=== PATIENT | female | born 1955 | race Two or more races ===

== ENCOUNTER 2018-09-17 10:17 | Emergency (ER) | payer MEDICAID ==
[~2018-09-17] VITALS: Ht 152.4 cm; Wt 78.2 kg
[~2018-09-17 10:17] MED LIST: ALBU6.7H INH; AMIT-106 PO; BUPR150T13 PO; CYCL-1 PO; ENOX100S3 SQ; FLUC200T PO; GABA-532 PO; HYDR-4353 PO; HYDR-4383 PO; LORA0.5T PO; MAGN400C PO; METH4TAB3 PO; ONDA4TAB6 PO; PANT-47 PO; POLY119P2 PO; PROC10TA10 PO; SIME80TA16 PO; SUCR1ORA12 PO
[2018-09-17 11:33] LABS: BASOPHILS % (AUTO) 0.4 % (0-1); EOSINOPHILS # (AUTO) 0.1 X10'3 (0-0.9); EOSINOPHILS % (AUTO) 1.1 % (0-6); HEMATOCRIT 38.9 % (35.0-45.0); HEMOGLOBIN 13.1 g/dl (12.0-16.0); LYMPHOCYTES # (AUTO) 1.8 X10'3 (1.1-4.8); LYMPHOCYTES % (AUTO) 24.9 % (21-51); MEAN CORPUSCULAR HEMOGLOBIN 30.2 PG (27.0-31.0); MEAN CORPUSCULAR HGB CONC 33.7 g/dL (33.0-36.5); MEAN CORPUSCULAR VOLUME 89.8 FL (78-98); MEAN PLATELET VOLUME 8.7 FL (7.4-10.4); MONOCYTES # (AUTO) 0.5 X10'3 (0-0.9); MONOCYTES % (AUTO) 6.5 % (2-12); NEUTROPHILS # (AUTO) 4.9 X10'3 (1.8-7.7); NEUTROPHILS % (AUTO) 67.1 % (42-75); PLATELET COUNT 295 X10'3 (140-440); RED BLOOD COUNT 4.33 X10'6 (4.20-5.60); RED CELL DISTRIBUTION WIDTH 14.3 % (11.5-14.5); WHITE BLOOD COUNT 7.3 X10'3 (4.5-11.0)
[2018-09-17 11:43] LABS: PARTIAL THROMBOPLASTIN TIME 29 SECONDS (22-32)
[2018-09-17 11:56] LABS: ALANINE AMINOTRANSFERASE 22 U/L (12-78); ALBUMIN 3.6 G/DL (3.4-5.0); ALBUMIN/GLOBULIN RATIO 0.9 (1.1-1.5); ALKALINE PHOSPHATASE 134 IU/L (46-116); ANION GAP 5 (8-16); ASPARTATE AMINO TRANSFERASE 13 U/L (10-37); BILIRUBIN,TOTAL 0.3 MG/DL (0.1-1.0); BLOOD UREA NITROGEN 19 MG/DL (7-18); BUN/CREATININE RATIO 21.3 (6.6-38.0); CALCIUM 8.8 MG/DL (8.5-10.1); CHLORIDE 106 MMOL/L (99-107); CREATININE 0.89 MG/DL (0.40-0.90); GLUCOSE 116 MG/DL (70-104); POTASSIUM 4.2 MMOL/L (3.5-5.1); SODIUM 141 MMOL/L (135-145); TOTAL PROTEIN 7.5 G/DL (6.4-8.2); eGFR 64 ML/MIN
[2018-09-17] MEDS ORDERED: GUAI118S13 PO (12:20)
[2018-09-17 13:14] VITALS: BP 135/72
== END 2018-09-17 13:20 | disposition home or self-care (01) ==
LOC: ER 10:18
DX: R05 Cough (principal); R06.02 Shortness of breath; J45.909 Unspecified asthma, uncomplicated; K21.9 Gastro-esophageal reflux disease without esophagitis; E11.9 Type 2 diabetes mellitus without complications; M19.90 Unspecified osteoarthritis, unspecified site; G89.29 Other chronic pain; Z86.718 Personal history of other venous thrombosis and embolism; Z98.890 Other specified postprocedural states; Z79.899 Other long term (current) drug therapy
CPT/HCPCS: 36415; 71045; 80053; 83880; 84484; 85025; 85610; 85730; 93005; 99284

== ENCOUNTER 2021-01-16 12:27 | Inpatient (IN) | payer MEDICAID ==
[~2021-01-16] VITALS: Ht 180.3 cm; Wt 79.0 kg
[~2021-01-16 12:27] MED LIST changes: -ALBU6.7H INH; +ALBU6.7H9 INH; -AMIT-106 PO; +AMIT25TA9 PO
[2021-01-16] MEDS ORDERED: azithromycin/NS 500mg/250ml 250 ML IV ONE (12:55)
[2021-01-16] MEDS ORDERED: CefTRIAXone 2gm/D5W 50ml BAG 50 ML IV ONE (12:55)
[2021-01-16] MEDS ORDERED: normal saline 1000ML IV soln IV ONE (12:55)
[2021-01-16 13:04] LABS: BASOPHILS % (AUTO) 0.1 % (0-1); EOSINOPHILS % (AUTO) 0 % (0-6); HEMATOCRIT 35.4 % (35.0-45.0); HEMOGLOBIN 12.1 g/dl (12.0-16.0); LYMPHOCYTES # (AUTO) 0.6 X10'3 (1.1-4.8); LYMPHOCYTES % (AUTO) 7.5 % (21-51); MEAN CORPUSCULAR HGB CONC 34.1 g/dL (33.0-36.5); MEAN CORPUSCULAR VOLUME 91.1 FL (78-98); MEAN PLATELET VOLUME 8.1 FL (7.4-10.4); MONOCYTES # (AUTO) 0.2 X10'3 (0-0.9); MONOCYTES % (AUTO) 3.2 % (2-12); NEUTROPHILS # (AUTO) 6.9 X10'3 (1.8-7.7); NEUTROPHILS % (AUTO) 89.2 % (42-75); PLATELET COUNT 283 X10'3 (140-440); RED BLOOD COUNT 3.89 X10'6 (4.20-5.60); RED CELL DISTRIBUTION WIDTH 13.7 % (11.5-14.5); WHITE BLOOD COUNT 7.7 X10'3 (4.5-11.0)
[2021-01-16 13:17] LABS: D-DIMER 1.38 MG/L FEU (0-0.50)
[2021-01-16 13:24] LABS: ALANINE AMINOTRANSFERASE 31 U/L (12-78); ALBUMIN/GLOBULIN RATIO 0.7 (1.1-1.5); ALKALINE PHOSPHATASE 137 IU/L (46-116); ANION GAP 12 (8-16); ASPARTATE AMINO TRANSFERASE 46 U/L (10-37); BILIRUBIN,TOTAL 0.4 MG/DL (0.1-1.0); BLOOD UREA NITROGEN 13 MG/DL (7-18); BUN/CREATININE RATIO 14.8 (6.6-38.0); CALCIUM 8.4 MG/DL (8.5-10.1); CHLORIDE 100 MMOL/L (99-107); CREATININE 0.88 MG/DL (0.40-0.90); GLUCOSE 227 MG/DL (70-104); SODIUM 138 MMOL/L (135-145); TOTAL CARBON DIOXIDE 25.8 MMOL/L (24-32); TOTAL PROTEIN 7.5 G/DL (6.4-8.2); eGFR 64 ML/MIN
[2021-01-16] MEDS ORDERED: dexamethasone inj 8 MG in normal saline 50ml IV soln 50 ML IV ONE (13:30)
--- NOTE | 2021-01-16 13:40 | NUR ---
pt has been on 6liters nasal cannula since arrival to er, no beds available, pt is covid positive, was tested at clinic today, 89 to 90% on 6 liters, pt is in wheelchair in [place]
[2021-01-16] MEDS ORDERED: iohexol 350MG/ML 100ml bottle IV ONE (13:42)
--- NOTE | 2021-01-16 13:43 | NUR ---
charge nurse is aware, bed to become available soon
--- NOTE | 2021-01-16 13:55 | NUR ---
1st liter ns infusing w/o
--- NOTE | 2021-01-16 14:15 | NUR ---
PT C/O SOB, 79% ON 6LITERS NASAL CANNULA, Ruddy HENDERSON AWARE, PT PLACED ON NRB, PULSE OX INCREASED TO 98% AND PT SAID SHE FELT BETTER, PT TAKEN TO CT ON MONITOR WITH RN, PT WAS ABLE TO TRANSFER SELF WITH MIN ASSIST FROM WHEELCHAIR TO CT BED
--- NOTE | 2021-01-16 14:35 | NUR ---
PT TO ROOM 1, REPORT TO CASIE AGARWAL
[2021-01-16] MEDS ORDERED: REMDESIVIR INJ 200 MG in normal saline 100ml IV soln 60 ML IV ONE (15:00)
[2021-01-16 15:27] LABS: ABG HCO3 21.4 mmol/L (22.0-26.0); ABG OXYGEN SATURATION 98.3 % (94-97); ABG PCO2 (T) 32.1 mmHg (32.0-45.0); ABG PO2 (T) 145.5 mmHg (75.0-100.0); ALLEN'S TEST POSITIVE; FCOHb 0.7 % (0.0-3.9); FLOW 15 L/min; FMetHb 0.3 % (0.0-1.5); FO2Hb 97.3 % (94-97); PATIENT TEMPERATURE 36.8; TOTAL HEMOGLOBIN 12.4 G/dl (12.0-16.0)
[2021-01-16] MEDS: normal saline 1000ml 1,000 ML IV SCH (15:35)
[2021-01-16] MEDS ORDERED: mag hydrox/Alum hydrox/simeth 30ml oral suspension PO PRN (15:35)
[2021-01-16] MEDS ORDERED: magnesium hydroxide 30ml (MOM) UD suspension PO PRN (15:35)
[2021-01-16] MEDS ORDERED: ondansetron/PF 4mg/2ml inj IV PRN (15:35)
[2021-01-16] MEDS: ALBUTEROL INHALER 1 PUFF/90 MCG INHALER IH PRN (15:36)
[2021-01-16] MEDS ORDERED: BUSP10TA10 PO (15:54)
[2021-01-16] MEDS ORDERED: METF-438 PO (15:54)
[2021-01-16] MEDS ORDERED: GLIM2TAB6 PO (15:54)
[2021-01-16] MEDS ORDERED: BUPR300T53 PO (15:54)
[2021-01-16] MEDS ORDERED: AMIT25TA10 PO (15:54)
[2021-01-16] MEDS ORDERED: ALEN70TA80 PO (15:54)
[2021-01-16] MEDS ORDERED: SERT-433 PO (15:54)
[2021-01-16] MEDS ORDERED: GABA300C PO (15:54)
[2021-01-16] MEDS ORDERED: LURA20TA PO (15:54)
[2021-01-16] MEDS ORDERED: ASPI-611 PO (15:54)
[2021-01-16] MEDS ORDERED: CHOL20004 PO (15:54)
[2021-01-16] MEDS ORDERED: CHLO100T16 PO (15:54)
[2021-01-16] MEDS ORDERED: MONT10TA21 PO (15:54)
[2021-01-16] MEDS ORDERED: TRAZ-256 PO (15:54)
[2021-01-16] MEDS ORDERED: non-formulary drug (Alendronate Sodium 1 TAB) PO SCH (16:15)
--- NOTE | 2021-01-16 17:36 | NUR ---
pt o2 sats continue to stay 79-83% on 15+L 4 puffs of albuterol inhaler given, hob raised and o2 canula adjusted, pt stayed in this range for several minutes. pt has anxiety/ impending doom contacted pa on duty for low o2 and anxiety. no orders at this time
[2021-01-16] MEDS ORDERED: ondansetron/PF 4mg/2ml inj IV ONE (18:30)
[2021-01-16] MEDS ORDERED: LORazepam 2 mg/ml vial IV ONE (18:30)
--- NOTE | 2021-01-16 18:42 | NUR ---
RT AT BEDSIDE. PT PUT ON NON-REBREATHER WHEN SPO2 FOUND TO BE 85%
--- NOTE | 2021-01-16 18:46 | NUR ---
RT AT BEDSIDE. PT MEDICATED WITH ZOFRAN AND ATIVAN. PT COUGHED UP PINK TINGED SPUTUM. PT PLACED ON SALTER AND NONREBREATHER AT 15L. PT IS SATTING 90-92%.
[2021-01-16] MEDS: docusate sod 100mg capsule PO SCH (20:00)
[2021-01-16] MEDS: dexamethasone 4mg/ml inj IV SCH (20:57)
[2021-01-16] MEDS: enoxaparin 40mg/0.4ml syringe SUBCUT SCH (20:58)
[2021-01-16] MEDS: busPIRone 5mg tablet PO SCH (20:58)
[2021-01-16] MEDS: chlorproMAZINE 25mg tablet PO SCH (21:00)
[2021-01-16] MEDS: amitriptyline 25mg tablet PO SCH (21:00)
[2021-01-16] MEDS: traZODone 50mg tablet PO SCH (21:07)
[2021-01-17 02:00] VITALS: BP 126/80
[2021-01-17] MEDS: dexamethasone 4mg/ml inj IV SCH ×3 (02:42→13:34)
[2021-01-17 06:00] VITALS: BP 130/66
--- NOTE | 2021-01-17 06:10 | NUR ---
Patient in room ORTHO 4007. I have received report from Rochelle AGARWAL and had the opportunity to ask questions and assume patient care.
[2021-01-17 08:48] LABS: BASOPHILS % (AUTO) 0 % (0-1); EOSINOPHILS % (AUTO) 0 % (0-6); HEMATOCRIT 34.9 % (35.0-45.0); HEMOGLOBIN 11.9 g/dl (12.0-16.0); LYMPHOCYTES # (AUTO) 0.5 X10'3 (1.1-4.8); LYMPHOCYTES % (AUTO) 6.8 % (21-51); MEAN CORPUSCULAR HEMOGLOBIN 31.2 PG (27.0-31.0); MEAN CORPUSCULAR HGB CONC 34.2 g/dL (33.0-36.5); MEAN CORPUSCULAR VOLUME 91.2 FL (78-98); MEAN PLATELET VOLUME 8.4 FL (7.4-10.4); MONOCYTES # (AUTO) 0.4 X10'3 (0-0.9); MONOCYTES % (AUTO) 5.3 % (2-12); NEUTROPHILS # (AUTO) 6.1 X10'3 (1.8-7.7); NEUTROPHILS % (AUTO) 87.9 % (42-75); PLATELET COUNT 297 X10'3 (140-440); RED BLOOD COUNT 3.83 X10'6 (4.20-5.60); RED CELL DISTRIBUTION WIDTH 13.7 % (11.5-14.5)
[2021-01-17] MEDS: REMDESIVIR INJ 100 MG in normal saline 100ml IV soln 80 ML IV SCH (08:49)
[2021-01-17] MEDS: buPROPion SR 150mg tablet PO SCH ×2 (08:50→21:28)
[2021-01-17] MEDS: enoxaparin 40mg/0.4ml syringe SUBCUT SCH (08:50)
[2021-01-17] MEDS: docusate sod 100mg capsule PO SCH ×2 (08:50→20:00)
[2021-01-17] MEDS: cholecalciferol (vitamin D3) 1,000 unit (25mcg) tablet PO SCH (08:50)
[2021-01-17] MEDS: aspirin 81mg, enteric-coated 1 TAB TABLET.DR PO SCH (08:50)
[2021-01-17] MEDS: gabapentin 300mg capsule PO SCH (08:51)
[2021-01-17] MEDS: montelukast 10mg tablet PO SCH (08:51)
[2021-01-17] MEDS: busPIRone 5mg tablet PO SCH ×2 (08:51→21:27)
[2021-01-17] MEDS: lurasidone 20mg tablet PO SCH (08:51)
[2021-01-17] MEDS: sertraline 50mg tablet PO SCH (08:51)
[2021-01-17 09:07] LABS: D-DIMER 2.38 MG/L FEU (0-0.50)
[2021-01-17 09:27] LABS: ALBUMIN 2.6 G/DL (3.4-5.0); ANION GAP 12 (8-16); BLOOD UREA NITROGEN 12 MG/DL (7-18); BUN/CREATININE RATIO 17.1 (6.6-38.0); C-REACTIVE PROTEIN 21.45 MG/DL (0.0-0.5); CALCIUM 7.6 MG/DL (8.5-10.1); CHLORIDE 104 MMOL/L (99-107); GLUCOSE 270 MG/DL (70-104); SODIUM 140 MMOL/L (135-145); TOTAL CARBON DIOXIDE 24.3 MMOL/L (24-32); eGFR 84 ML/MIN
--- NOTE | 2021-01-17 13:57 | NUR ---
PAGER ID: [phone] MESSAGE: Dr. Altamirano I spoke to another son named Rafita, he is with his brother irving and said that its okay to intubate patient Ana Cristina Arndt if need be. Stephanie [phone]
[2021-01-17 14:00] VITALS: BP 114/67
[2021-01-17 15:00] VITALS: BP 136/72
--- NOTE | 2021-01-17 15:32 | NUR ---
Paged Respiratory Ortho Neuro rm [phone] Rabia Arndt Needs Stat ABG. Thank you Brinda AGARWAL [phone]
--- NOTE | 2021-01-17 15:35 | NUR ---
Paged Dr. Altamirano PAGER ID: [phone] MESSAGE: Ortho Neuro rm [phone] Rabia Arndt put in orders for Stat ABG and chest x-ray. On O2 [place] [facility] 100% FIO2 and O2 saturation is 90%. Thank you Brinda AGARWAL [phone]
--- NOTE | 2021-01-17 15:38 | NUR ---
Spoke with Dr. Altamirano regarding he spoke with the ICU Franchise Sales Manager and Dr. Benites will assess patient. Respiratory is here now doing STAT ABG.
[2021-01-17] MEDS: methylPREDNISolone sod succ 125mg/2ml vial IV SCH ×2 (15:47→21:29)
[2021-01-17 15:55] LABS: ABG BASE EXCESS -0.5 mmol/L (-2.0-2.0); ABG HCO3 24.4 mmol/L (22.0-26.0); ABG OXYGEN SATURATION 98.8 % (94-97); ABG PO2 (T) 187.1 mmHg (75.0-100.0); ALLEN'S TEST POSITIVE; FCOHb 0.3 % (0.0-3.9); FLOW 60 L/min; FMetHb 0.1 % (0.0-1.5); FO2Hb 98.4 % (94-97); TOTAL HEMOGLOBIN 12.3 G/dl (12.0-16.0)
--- NOTE | 2021-01-17 16:52 | NUR ---
paged respiratory Ortho Neuro rm [phone] Rabia Arndt will have ABG done daily at 1000. orders put in for the next 9 days Thank you Brinda AGARWAL [phone]
--- NOTE | 2021-01-17 16:55 | NUR ---
Called Resp. [phone], left voice message regarding daily ABGs at 1000 for the patient for the next 9 days.
--- NOTE | 2021-01-17 17:05 | NUR ---
Paged Dr. Altamirano re: PT order to increase mobility PAGER ID: [phone] MESSAGE: Ortho Neuro rm [phone] Rabia Arndt can we have PT eval and treat order? Thank you Brinda AGARWAL [phone]
--- NOTE | 2021-01-17 18:03 | NUR ---
Problems reprioritized. Patient report given, questions answered & plan of care reviewed with Rochelle AGARWAL.
[2021-01-17] MEDS: amitriptyline 25mg tablet PO SCH (21:28)
[2021-01-17] MEDS: chlorproMAZINE 25mg tablet PO SCH (21:28)
[2021-01-17] MEDS: traZODone 50mg tablet PO SCH (21:28)
[2021-01-17] MEDS: enoxaparin 80mg/0.8ml syringe SUBCUT SCH (21:31)
[2021-01-17 22:00] VITALS: BP 163/89
[2021-01-18 02:00] VITALS: BP 116/57
[2021-01-18] MEDS: methylPREDNISolone sod succ 125mg/2ml vial IV SCH ×3 (02:26→16:37)
--- NOTE | 2021-01-18 06:24 | NUR ---
Problems reprioritized. Patient report given, questions answered & plan of care reviewed with Marla AGARWAL .
[2021-01-18 07:51] LABS: BASOPHILS % (AUTO) 0.1 % (0-1); EOSINOPHILS % (AUTO) 0.1 % (0-6); HEMATOCRIT 34.9 % (35.0-45.0); LYMPHOCYTES # (AUTO) 0.4 X10'3 (1.1-4.8); LYMPHOCYTES % (AUTO) 7.3 % (21-51); MEAN CORPUSCULAR HEMOGLOBIN 31.2 PG (27.0-31.0); MEAN CORPUSCULAR HGB CONC 34.4 g/dL (33.0-36.5); MEAN CORPUSCULAR VOLUME 90.6 FL (78-98); MEAN PLATELET VOLUME 8.3 FL (7.4-10.4); MONOCYTES # (AUTO) 0.5 X10'3 (0-0.9); MONOCYTES % (AUTO) 8.9 % (2-12); NEUTROPHILS % (AUTO) 83.6 % (42-75); PLATELET COUNT 360 X10'3 (140-440); RED BLOOD COUNT 3.86 X10'6 (4.20-5.60); RED CELL DISTRIBUTION WIDTH 13.9 % (11.5-14.5)
[2021-01-18] MEDS: enoxaparin 80mg/0.8ml syringe SUBCUT SCH ×2 (08:29→21:07)
[2021-01-18] MEDS: buPROPion SR 150mg tablet PO SCH ×2 (08:30→21:06)
[2021-01-18] MEDS: aspirin 81mg, enteric-coated 1 TAB TABLET.DR PO SCH (08:30)
[2021-01-18] MEDS: sertraline 50mg tablet PO SCH (08:30)
[2021-01-18] MEDS: montelukast 10mg tablet PO SCH (08:30)
[2021-01-18] MEDS: gabapentin 300mg capsule PO SCH (08:31)
[2021-01-18] MEDS: busPIRone 5mg tablet PO SCH ×2 (08:31→21:06)
[2021-01-18] MEDS: cholecalciferol (vitamin D3) 1,000 unit (25mcg) tablet PO SCH (08:31)
[2021-01-18] MEDS: lurasidone 20mg tablet PO SCH (08:31)
[2021-01-18] MEDS: docusate sod 100mg capsule PO SCH ×2 (08:31→21:06)
[2021-01-18] MEDS: REMDESIVIR INJ 100 MG in normal saline 100ml IV soln 80 ML IV SCH (08:32)
[2021-01-18 08:37] LABS: ALBUMIN 2.7 G/DL (3.4-5.0); ANION GAP 12 (8-16); BLOOD UREA NITROGEN 20 MG/DL (7-18); BUN/CREATININE RATIO 25.3 (6.6-38.0); C-REACTIVE PROTEIN 11.45 MG/DL (0.0-0.5); CALCIUM 7.9 MG/DL (8.5-10.1); CHLORIDE 106 MMOL/L (99-107); CREATININE 0.79 MG/DL (0.40-0.90); GLUCOSE 328 MG/DL (70-104); POTASSIUM 4.1 MMOL/L (3.5-5.1); SODIUM 141 MMOL/L (135-145); TOTAL CARBON DIOXIDE 23.2 MMOL/L (24-32); eGFR 73 ML/MIN
[2021-01-18 08:49] LABS: D-DIMER 1.83 MG/L FEU (0-0.50)
[2021-01-18 10:00] VITALS: BP 106/53
--- NOTE | 2021-01-18 11:00 | NUR ---
Patient not eating good. Dr. Andrews notified , nutritional supplement ordered.
[2021-01-18] MEDS ORDERED: dextrose 50%-water 50ml dispensing syringe IV PRN (14:45)
[2021-01-18] MEDS ORDERED: dextrose ORAL solution 15 GM/59 ML bottle PO PRN ×2 (14:45)
[2021-01-18] MEDS ORDERED: glucagon, human recombinant 1mg kit SUBCUT PRN (14:45)
[2021-01-18] MEDS: normal saline 1000ml 1,000 ML IV SCH (14:56)
[2021-01-18 15:23] LABS: HEMOGLOBIN A1C 7.8 % (4.5-6.2)
--- NOTE | 2021-01-18 17:51 | NUR ---
PAGER ID: [phone] MESSAGE: Marla AGARWAL, [phone]: Patient Yris Bender, 4007, blood sugar is 401, A1C is 7.8. I have already initiated hyper/hypo protocol
[2021-01-18 18:00] VITALS: BP 111/69
[2021-01-18] MEDS: insulin Lispro (HumaLOG) vial - multi-dose SQ SCH ×2 (18:15→21:13)
--- NOTE | 2021-01-18 18:52 | NUR ---
Patient in room ORTHO 4007. I have received report from Marla AGARWAL and had the opportunity to ask questions and assume patient care.
[2021-01-18] MEDS: NUT.TX.GLUC.INTOLER,LAC-FR,SOY (GLUCERNA) 237 ML PO SCH (18:56)
[2021-01-18] MEDS: chlorproMAZINE 25mg tablet PO SCH (21:06)
[2021-01-18] MEDS: traZODone 50mg tablet PO SCH (21:06)
[2021-01-18] MEDS: amitriptyline 25mg tablet PO SCH (21:07)
[2021-01-18] MEDS: insulin glargine (Lantus) pen - multi-dose SQ SCH (21:12)
[2021-01-18 22:00] VITALS: BP 108/45
--- NOTE | 2021-01-18 22:00 | NUR ---
Pts blood sugar was 403 at 2100, hypo/hyperglycemic protocol ordered. Pt is level 2 as of now. Corrected her per the protocol with Lantus and Humalog. Will continue to monitor.
[2021-01-19] MEDS: methylPREDNISolone sod succ 125mg/2ml vial IV SCH ×2 (01:11→09:20)
[2021-01-19 02:00] VITALS: BP 106/52
--- NOTE | 2021-01-19 05:50 | NUR ---
Upon pts approval I updated the pts son Lakhwinder on pts status and plan of care. Son will inform the rest of the family.
--- NOTE | 2021-01-19 06:30 | NUR ---
Patient in room ORTHO 4007. I have received report from Diana and had the opportunity to ask questions and assume patient care.
--- NOTE | 2021-01-19 06:31 | NUR ---
Problems reprioritized. Patient report given, questions answered & plan of care reviewed with Marla AGARWAL.
[2021-01-19] MEDS: NUT.TX.GLUC.INTOLER,LAC-FR,SOY (GLUCERNA) 237 ML PO SCH ×3 (08:00→18:00)
[2021-01-19 08:33] LABS: BASOPHILS % (AUTO) 0 % (0-1); EOSINOPHILS % (AUTO) 0 % (0-6); HEMATOCRIT 34.3 % (35.0-45.0); HEMOGLOBIN 11.6 g/dl (12.0-16.0); LYMPHOCYTES # (AUTO) 0.3 X10'3 (1.1-4.8); LYMPHOCYTES % (AUTO) 3.7 % (21-51); MEAN CORPUSCULAR HGB CONC 33.7 g/dL (33.0-36.5); MEAN CORPUSCULAR VOLUME 91.9 FL (78-98); MEAN PLATELET VOLUME 8.6 FL (7.4-10.4); MONOCYTES # (AUTO) 0.6 X10'3 (0-0.9); MONOCYTES % (AUTO) 7.3 % (2-12); NEUTROPHILS # (AUTO) 7.6 X10'3 (1.8-7.7); PLATELET COUNT 399 X10'3 (140-440); RED BLOOD COUNT 3.73 X10'6 (4.20-5.60); RED CELL DISTRIBUTION WIDTH 13.6 % (11.5-14.5); WHITE BLOOD COUNT 8.5 X10'3 (4.5-11.0)
[2021-01-19 09:09] LABS: ALBUMIN 2.6 G/DL (3.4-5.0); ANION GAP 6 (8-16); BLOOD UREA NITROGEN 24 MG/DL (7-18); BUN/CREATININE RATIO 38.7 (6.6-38.0); C-REACTIVE PROTEIN 4.49 MG/DL (0.0-0.5); CALCIUM 7.9 MG/DL (8.5-10.1); CHLORIDE 106 MMOL/L (99-107); CREATININE 0.62 MG/DL (0.40-0.90); GLUCOSE 305 MG/DL (70-104); POTASSIUM 4.2 MMOL/L (3.5-5.1); SODIUM 138 MMOL/L (135-145); TOTAL CARBON DIOXIDE 25.7 MMOL/L (24-32); eGFR > 90 ML/MIN
[2021-01-19] MEDS: gabapentin 300mg capsule PO SCH (09:12)
[2021-01-19] MEDS: aspirin 81mg, enteric-coated 1 TAB TABLET.DR PO SCH (09:13)
[2021-01-19] MEDS: buPROPion SR 150mg tablet PO SCH ×2 (09:13→19:51)
[2021-01-19] MEDS: cholecalciferol (vitamin D3) 1,000 unit (25mcg) tablet PO SCH (09:13)
[2021-01-19] MEDS: montelukast 10mg tablet PO SCH (09:13)
[2021-01-19] MEDS: docusate sod 100mg capsule PO SCH ×2 (09:13→19:50)
[2021-01-19] MEDS: busPIRone 5mg tablet PO SCH ×2 (09:14→19:51)
[2021-01-19] MEDS: sertraline 50mg tablet PO SCH (09:14)
[2021-01-19] MEDS: lurasidone 20mg tablet PO SCH (09:14)
[2021-01-19] MEDS: REMDESIVIR INJ 100 MG in normal saline 100ml IV soln 80 ML IV SCH (09:14)
[2021-01-19] MEDS: enoxaparin 80mg/0.8ml syringe SUBCUT SCH ×2 (09:15→19:51)
[2021-01-19 09:18] LABS: D-DIMER 1.33 MG/L FEU (0-0.50)
[2021-01-19] MEDS: insulin Lispro (HumaLOG) vial - multi-dose SQ SCH ×4 (09:19→22:46)
[2021-01-19 10:00] VITALS: BP 124/61
[2021-01-19] MEDS: ALBUTEROL INHALER 1 PUFF/90 MCG INHALER IH PRN (10:10)
--- NOTE | 2021-01-19 12:17 | NUR ---
DM Consult: Pt hx T2DM A1C 7.8 admit DX COVID-19 PNA per EMR. Glu 316 down from 403mg/dl on solumedrol as well as glycemic protocol. Noted pt on 50L high flow oxygen not appropriate for DM ed at this time. DM ed deferred until more appropriate this admit. Addendum: 01/19/21 at [address] Amended: Links added.
[2021-01-19 14:00] VITALS: BP 107/51
[2021-01-19] MEDS: methylPREDNISolone sod succ/PF 40mg inj. IV SCH (16:43)
[2021-01-19 18:00] VITALS: BP 105/41
--- NOTE | 2021-01-19 18:29 | NUR ---
Patient in room ORTHO 4007. I have received report from Marla AGARWAL and had the opportunity to ask questions and assume patient care.
--- NOTE | 2021-01-19 18:30 | NUR ---
Problems reprioritized. Patient report given, questions answered & plan of care reviewed with Diana AGARWAL.
[2021-01-19 22:00] VITALS: BP 124/59
[2021-01-19] MEDS: chlorproMAZINE 25mg tablet PO SCH (22:32)
[2021-01-19] MEDS: amitriptyline 25mg tablet PO SCH (22:33)
[2021-01-19] MEDS: acetaminophen 325mg tablet PO PRN (22:33)
[2021-01-19] MEDS: traZODone 50mg tablet PO SCH (22:33)
[2021-01-19] MEDS: insulin glargine (Lantus) pen - multi-dose SQ SCH (22:39)
[2021-01-20] MEDS: methylPREDNISolone sod succ/PF 40mg inj. IV SCH ×3 (00:11→17:06)
[2021-01-20 02:00] VITALS: BP 114/57
[2021-01-20] MEDS: acetaminophen 325mg tablet PO PRN (05:14)
--- NOTE | 2021-01-20 06:27 | NUR ---
Problems reprioritized. Patient report given, questions answered & plan of care reviewed with Marla AGARWAL.
--- NOTE | 2021-01-20 06:40 | NUR ---
Patient in room ORTHO 4007. I have received report from Diana AGARWAL and had the opportunity to ask questions and assume patient care.
[2021-01-20] MEDS: NUT.TX.GLUC.INTOLER,LAC-FR,SOY (GLUCERNA) 237 ML PO SCH ×2 (08:00→13:00)
[2021-01-20 08:21] LABS: BASOPHILS % (AUTO) 0 % (0-1); EOSINOPHILS % (AUTO) 0 % (0-6); HEMATOCRIT 33.2 % (35.0-45.0); HEMOGLOBIN 11.5 g/dl (12.0-16.0); LYMPHOCYTES # (AUTO) 0.5 X10'3 (1.1-4.8); LYMPHOCYTES % (AUTO) 5.8 % (21-51); MEAN CORPUSCULAR HEMOGLOBIN 31.3 PG (27.0-31.0); MEAN CORPUSCULAR HGB CONC 34.8 g/dL (33.0-36.5); MEAN CORPUSCULAR VOLUME 90.1 FL (78-98); MEAN PLATELET VOLUME 8.1 FL (7.4-10.4); MONOCYTES # (AUTO) 0.6 X10'3 (0-0.9); MONOCYTES % (AUTO) 6.3 % (2-12); NEUTROPHILS # (AUTO) 8.1 X10'3 (1.8-7.7); NEUTROPHILS % (AUTO) 87.9 % (42-75); PLATELET COUNT 422 X10'3 (140-440); RED BLOOD COUNT 3.68 X10'6 (4.20-5.60); RED CELL DISTRIBUTION WIDTH 13.7 % (11.5-14.5); WHITE BLOOD COUNT 9.2 X10'3 (4.5-11.0)
[2021-01-20 08:50] LABS: ALBUMIN 2.6 G/DL (3.4-5.0); ANION GAP 8 (8-16); BLOOD UREA NITROGEN 22 MG/DL (7-18); BUN/CREATININE RATIO 35.5 (6.6-38.0); C-REACTIVE PROTEIN 2.56 MG/DL (0.0-0.5); CALCIUM 8.1 MG/DL (8.5-10.1); CHLORIDE 107 MMOL/L (99-107); CREATININE 0.62 MG/DL (0.40-0.90); GLUCOSE 154 MG/DL (70-104); SODIUM 141 MMOL/L (135-145); eGFR > 90 ML/MIN
[2021-01-20 08:55] LABS: D-DIMER 1.55 MG/L FEU (0-0.50)
[2021-01-20] MEDS: insulin Lispro (HumaLOG) vial - multi-dose SQ SCH ×2 (09:44→15:09)
[2021-01-20 10:00] VITALS: BP 110/66
[2021-01-20] MEDS: gabapentin 300mg capsule PO SCH (10:04)
[2021-01-20] MEDS: aspirin 81mg, enteric-coated 1 TAB TABLET.DR PO SCH (10:04)
[2021-01-20] MEDS: montelukast 10mg tablet PO SCH (10:04)
[2021-01-20] MEDS: lurasidone 20mg tablet PO SCH (10:04)
[2021-01-20] MEDS: cholecalciferol (vitamin D3) 1,000 unit (25mcg) tablet PO SCH (10:04)
[2021-01-20] MEDS: enoxaparin 80mg/0.8ml syringe SUBCUT SCH (10:05)
[2021-01-20] MEDS: sertraline 50mg tablet PO SCH (10:05)
[2021-01-20] MEDS: REMDESIVIR INJ 100 MG in normal saline 100ml IV soln 80 ML IV SCH (10:06)
[2021-01-20] MEDS: buPROPion SR 150mg tablet PO SCH ×2 (10:10→20:18)
[2021-01-20] MEDS: busPIRone 5mg tablet PO SCH ×2 (10:10→20:17)
[2021-01-20] MEDS: normal saline 1000ml 1,000 ML IV SCH (10:11)
[2021-01-20] MEDS: docusate sod 100mg capsule PO SCH ×2 (10:26→20:17)
[2021-01-20 14:00] VITALS: BP 118/64
[2021-01-20 18:00] VITALS: BP 134/71
--- NOTE | 2021-01-20 19:10 | NUR ---
Problems reprioritized. Patient report given, questions answered & plan of care reviewed with Mai AGARWAL.
[2021-01-20] MEDS: traZODone 50mg tablet PO SCH (20:17)
[2021-01-20] MEDS: amitriptyline 25mg tablet PO SCH (20:18)
[2021-01-20] MEDS: enoxaparin 40mg/0.4ml syringe SUBCUT SCH (20:18)
[2021-01-20 22:00] VITALS: BP 137/83
[2021-01-20] MEDS: insulin glargine (Lantus) pen - multi-dose SQ SCH (22:12)
[2021-01-20] MEDS: chlorproMAZINE 25mg tablet PO SCH (22:22)
[2021-01-21] MEDS: methylPREDNISolone sod succ/PF 40mg inj. IV SCH ×3 (01:57→16:36)
[2021-01-21 02:00] VITALS: BP 123/65
[2021-01-21 06:00] VITALS: BP 139/55
--- NOTE | 2021-01-21 06:34 | NUR ---
VERBAL REPORT GIVEN TO JETHRO AGARWAL AND QUESTIONS ANSWERED
--- NOTE | 2021-01-21 06:49 | NUR ---
Patient in room ORTHO 4007. I have received report from STEFANO RODRIGUEZ and had the opportunity to ask questions and assume patient care.
[2021-01-21] MEDS: buPROPion SR 150mg tablet PO SCH ×2 (07:13→19:43)
[2021-01-21] MEDS: lurasidone 20mg tablet PO SCH (07:13)
[2021-01-21] MEDS: aspirin 81mg, enteric-coated 1 TAB TABLET.DR PO SCH (07:13)
[2021-01-21] MEDS: enoxaparin 40mg/0.4ml syringe SUBCUT SCH ×2 (07:13→19:43)
[2021-01-21] MEDS: busPIRone 5mg tablet PO SCH ×2 (07:14→19:44)
[2021-01-21] MEDS: docusate sod 100mg capsule PO SCH ×2 (07:14→19:44)
[2021-01-21] MEDS: sertraline 50mg tablet PO SCH (07:14)
[2021-01-21] MEDS: cholecalciferol (vitamin D3) 1,000 unit (25mcg) tablet PO SCH (07:14)
[2021-01-21] MEDS: montelukast 10mg tablet PO SCH (07:14)
[2021-01-21] MEDS: gabapentin 300mg capsule PO SCH (07:14)
[2021-01-21] MEDS: NUT.TX.GLUC.INTOLER,LAC-FR,SOY (GLUCERNA) 237 ML PO SCH ×3 (08:00→18:17)
[2021-01-21 08:39] LABS: BASOPHILS % (AUTO) 0.1 % (0-1); EOSINOPHILS % (AUTO) 0 % (0-6); HEMATOCRIT 33.4 % (35.0-45.0); HEMOGLOBIN 11.5 g/dl (12.0-16.0); LYMPHOCYTES # (AUTO) 0.4 X10'3 (1.1-4.8); LYMPHOCYTES % (AUTO) 4.1 % (21-51); MEAN CORPUSCULAR HEMOGLOBIN 31.3 PG (27.0-31.0); MEAN CORPUSCULAR HGB CONC 34.2 g/dL (33.0-36.5); MEAN CORPUSCULAR VOLUME 91.4 FL (78-98); MEAN PLATELET VOLUME 8.2 FL (7.4-10.4); MONOCYTES # (AUTO) 0.3 X10'3 (0-0.9); MONOCYTES % (AUTO) 2.9 % (2-12); NEUTROPHILS # (AUTO) 8.3 X10'3 (1.8-7.7); NEUTROPHILS % (AUTO) 92.9 % (42-75); PLATELET COUNT 433 X10'3 (140-440); RED BLOOD COUNT 3.66 X10'6 (4.20-5.60); RED CELL DISTRIBUTION WIDTH 13.7 % (11.5-14.5); WHITE BLOOD COUNT 8.9 X10'3 (4.5-11.0)
[2021-01-21 09:06] LABS: ALBUMIN 2.5 G/DL (3.4-5.0); ANION GAP 8 (8-16); BLOOD UREA NITROGEN 15 MG/DL (7-18); C-REACTIVE PROTEIN 6.05 MG/DL (0.0-0.5); CALCIUM 7.5 MG/DL (8.5-10.1); CHLORIDE 104 MMOL/L (99-107); D-DIMER 1.61 MG/L FEU (0-0.50); GLUCOSE 212 MG/DL (70-104); POTASSIUM 4.1 MMOL/L (3.5-5.1); SODIUM 138 MMOL/L (135-145); TOTAL CARBON DIOXIDE 25.9 MMOL/L (24-32); eGFR > 90 ML/MIN
[2021-01-21] MEDS: insulin Lispro (HumaLOG) vial - multi-dose SQ SCH ×2 (09:54→13:56)
[2021-01-21 10:00] VITALS: BP 117/59
[2021-01-21] MEDS: acetaminophen 325mg tablet PO PRN (13:51)
[2021-01-21 15:20] VITALS: BP 121/67
[2021-01-21] MEDS: normal saline 1000ml 1,000 ML IV SCH (16:54)
[2021-01-21 18:00] VITALS: BP 117/90
--- NOTE | 2021-01-21 18:29 | NUR ---
Problems reprioritized. Patient report given, questions answered & plan of care reviewed with STEFANO RODRIGUEZ.
[2021-01-21 22:00] VITALS: BP 122/58
--- NOTE | 2021-01-21 22:00 | NUR ---
also on 15 liters nrb mask Addendum: 01/22/21 at 0108 by Kathleen Mclean RN Amended: Links added.
[2021-01-21] MEDS: traZODone 50mg tablet PO SCH (22:08)
[2021-01-21] MEDS: chlorproMAZINE 25mg tablet PO SCH (22:09)
[2021-01-21] MEDS: amitriptyline 25mg tablet PO SCH (22:09)
[2021-01-21] MEDS: insulin glargine (Lantus) pen - multi-dose SQ SCH (23:04)
[2021-01-22] MEDS: methylPREDNISolone sod succ/PF 40mg inj. IV SCH ×4 (00:57→23:45)
[2021-01-22 01:55] LABS: ABG BASE EXCESS 3.5 mmol/L (-2.0-2.0); ABG HCO3 27.5 mmol/L (22.0-26.0); ABG OXYGEN SATURATION 95.2 % (94-97); ABG PCO2 (T) 39.6 mmHg (32.0-45.0); ABG PO2 (T) 75.6 mmHg (75.0-100.0); ALLEN'S TEST Modified; FCOHb 0.2 % (0.0-3.9); FLOW 50 L/min; FMetHb 0.3 % (0.0-1.5); FO2Hb 94.7 % (94-97); TOTAL HEMOGLOBIN 11.4 G/dl (12.0-16.0)
[2021-01-22 02:00] VITALS: BP 124/65
[2021-01-22] MEDS: lurasidone 20mg tablet PO SCH (08:42)
[2021-01-22] MEDS: montelukast 10mg tablet PO SCH (08:43)
[2021-01-22] MEDS: sertraline 50mg tablet PO SCH (08:43)
[2021-01-22] MEDS: gabapentin 300mg capsule PO SCH (08:43)
[2021-01-22] MEDS: cholecalciferol (vitamin D3) 1,000 unit (25mcg) tablet PO SCH (08:43)
[2021-01-22] MEDS: buPROPion SR 150mg tablet PO SCH ×2 (08:44→21:12)
[2021-01-22] MEDS: busPIRone 5mg tablet PO SCH ×2 (08:44→21:12)
[2021-01-22] MEDS: docusate sod 100mg capsule PO SCH ×2 (08:45→21:12)
[2021-01-22] MEDS: enoxaparin 40mg/0.4ml syringe SUBCUT SCH ×2 (08:45→21:11)
[2021-01-22] MEDS: NUT.TX.GLUC.INTOLER,LAC-FR,SOY (GLUCERNA) 237 ML PO SCH ×2 (08:46→08:50)
--- NOTE | 2021-01-22 09:08 | NUR ---
Initial: Pt admitted w/ increasing weakness and Covid. Pt has high oxygen requirement, currently 45L via HFNC. Pt w/ low PO intake, avg 31% x 12 meals on CCHO diet plus 47% x 10 ONS not meeting needs. LBM 01/18 receiving routine colace and started on miralax today. Limited nutrition interventions given pt's respiratory status and need for HFNC. Will continue to monitor. DM ed deferred until more appropriate this admit. Recs: 1. Continue CCHO diet as tolerated 2. Glucerna TID, if PO remains low may consider Ensure Enlive 3. Bowel care per rx 4. Weekly wts 5. Pt may benefit from DM education once more stable this admit Addendum: 01/22/21 at [address] Amended: Links added.
[2021-01-22 09:12] LABS: D-DIMER 1.91 MG/L FEU (0-0.50)
[2021-01-22] MEDS: aspirin 81mg, enteric-coated 1 TAB TABLET.DR PO SCH (09:37)
[2021-01-22] MEDS: insulin Lispro (HumaLOG) vial - multi-dose SQ SCH ×2 (13:40→19:28)
[2021-01-22 18:00] VITALS: BP 133/74
[2021-01-22] MEDS: insulin glargine (Lantus) pen - multi-dose SQ SCH (21:09)
[2021-01-22] MEDS: chlorproMAZINE 25mg tablet PO SCH (21:11)
[2021-01-22] MEDS: traZODone 50mg tablet PO SCH (21:12)
[2021-01-22] MEDS: amitriptyline 25mg tablet PO SCH (21:12)
[2021-01-22] MEDS: polyethylene glycol 3350 17gm powd pack PO SCH (21:12)
[2021-01-22 22:00] VITALS: BP 138/69
--- NOTE | 2021-01-22 22:57 | NUR ---
MESSAGE: [id number] Chelsea schuler 65, here for covid. is very anxious. she is taking Ativan 0.5mg bid at home. can she take it? also I need to talk to [id number] Piyush Tavera as well. thank you. #[phone] Mary
[2021-01-22] MEDS: LORazepam 0.5 MG tablet PO PRN (23:44)
[2021-01-23 02:00] VITALS: BP 130/69
[2021-01-23 06:00] VITALS: BP 118/67
--- NOTE | 2021-01-23 06:05 | NUR ---
received report from johanne conte
--- NOTE | 2021-01-23 06:27 | NUR ---
Problems reprioritized. Patient report given, questions answered & plan of care reviewed with johanne Foote.
[2021-01-23] MEDS: aspirin 81mg, enteric-coated 1 TAB TABLET.DR PO SCH (07:31)
[2021-01-23] MEDS: cholecalciferol (vitamin D3) 1,000 unit (25mcg) tablet PO SCH (07:31)
[2021-01-23] MEDS: buPROPion SR 150mg tablet PO SCH ×2 (07:31→19:54)
[2021-01-23] MEDS: docusate sod 100mg capsule PO SCH ×2 (07:31→19:55)
[2021-01-23] MEDS: gabapentin 300mg capsule PO SCH (07:32)
[2021-01-23] MEDS: sertraline 50mg tablet PO SCH (07:32)
[2021-01-23] MEDS: lurasidone 20mg tablet PO SCH (07:32)
[2021-01-23] MEDS: busPIRone 5mg tablet PO SCH ×2 (07:32→19:55)
[2021-01-23] MEDS: montelukast 10mg tablet PO SCH (07:32)
[2021-01-23] MEDS: enoxaparin 40mg/0.4ml syringe SUBCUT SCH ×2 (07:34→19:55)
[2021-01-23] MEDS: NUT.TX.GLUC.INTOLER,LAC-FR,SOY (GLUCERNA) 237 ML PO SCH ×3 (08:56→18:00)
[2021-01-23] MEDS: insulin Lispro (HumaLOG) vial - multi-dose SQ SCH ×3 (09:01→20:02)
[2021-01-23 09:36] LABS: D-DIMER 1.61 MG/L FEU (0-0.50)
[2021-01-23] MEDS: methylPREDNISolone sod succ/PF 40mg inj. IV SCH ×3 (09:42→23:24)
[2021-01-23] MEDS ORDERED: LORazepam 1 MG tablet PO PRN (11:15)
[2021-01-23 16:00] VITALS: BP 108/87
[2021-01-23 18:00] VITALS: BP 138/75
--- NOTE | 2021-01-23 18:37 | NUR ---
GAVE REPORT TO STEFANO DAN
[2021-01-23] MEDS: amitriptyline 25mg tablet PO SCH (19:54)
[2021-01-23] MEDS: polyethylene glycol 3350 17gm powd pack PO SCH (19:55)
[2021-01-23] MEDS: traZODone 50mg tablet PO SCH (19:55)
[2021-01-23] MEDS: ALBUTEROL INHALER 1 PUFF/90 MCG INHALER IH PRN (20:53)
[2021-01-23 22:00] VITALS: BP 135/77
[2021-01-23] MEDS: LORazepam 0.5 MG tablet PO PRN (22:09)
[2021-01-23] MEDS: chlorproMAZINE 25mg tablet PO SCH (22:09)
[2021-01-23] MEDS: insulin glargine (Lantus) pen - multi-dose SQ SCH (22:19)
--- NOTE | 2021-01-23 23:00 | NUR ---
gave update to Loraine gutierres for info on admission assessment. she is concerned that pt is not getting fed and she is not able to feed herself "before she runs out of air she is still hungry". will replace "feeder" sign on door and report to day RN and aid staff. pt tolerating oxygen down to 80% fiO2 at 94%. will continue to decrease as pt tolerates.
[2021-01-23] MEDS: acetaminophen 325mg tablet PO PRN (23:24)
[2021-01-24 02:00] VITALS: BP 126/72
[2021-01-24] MEDS: acetaminophen 325mg tablet PO PRN (05:34)
[2021-01-24 06:00] VITALS: BP 126/72
--- NOTE | 2021-01-24 06:30 | NUR ---
reported to days. noted pt resting - trying to decrease oxygen. noted pt had small sticky bm on bed arita. mahin intac.t
--- NOTE | 2021-01-24 06:48 | NUR ---
Patient in room ORTHO 4007. I have received report from STEFANO Barry and had the opportunity to ask questions and assume patient care.
[2021-01-24 07:38] LABS: D-DIMER 1.16 MG/L FEU (0-0.50)
[2021-01-24] MEDS: NUT.TX.GLUC.INTOLER,LAC-FR,SOY (GLUCERNA) 237 ML PO SCH ×3 (08:00→18:00)
[2021-01-24] MEDS: normal saline 1000ml 1,000 ML IV SCH (09:30)
[2021-01-24] MEDS: cholecalciferol (vitamin D3) 1,000 unit (25mcg) tablet PO SCH (09:32)
[2021-01-24] MEDS: busPIRone 5mg tablet PO SCH ×2 (09:33→20:18)
[2021-01-24] MEDS: buPROPion SR 150mg tablet PO SCH ×2 (09:33→20:18)
[2021-01-24] MEDS: montelukast 10mg tablet PO SCH (09:34)
[2021-01-24] MEDS: docusate sod 100mg capsule PO SCH ×2 (09:34→20:19)
[2021-01-24] MEDS: sertraline 50mg tablet PO SCH (09:34)
[2021-01-24] MEDS: aspirin 81mg, enteric-coated 1 TAB TABLET.DR PO SCH (09:35)
[2021-01-24] MEDS: lurasidone 20mg tablet PO SCH (09:35)
[2021-01-24] MEDS: gabapentin 300mg capsule PO SCH (09:35)
[2021-01-24] MEDS: methylPREDNISolone sod succ/PF 40mg inj. IV SCH ×3 (09:37→23:52)
[2021-01-24] MEDS: enoxaparin 40mg/0.4ml syringe SUBCUT SCH ×2 (09:49→20:15)
[2021-01-24 10:00] VITALS: BP 107/49
[2021-01-24] MEDS: LORazepam 0.5 MG tablet PO PRN (10:10)
[2021-01-24] MEDS: insulin Lispro (HumaLOG) vial - multi-dose SQ SCH ×2 (10:13→20:10)
[2021-01-24 18:00] VITALS: BP 110/62
[2021-01-24] MEDS: traZODone 50mg tablet PO SCH (20:17)
[2021-01-24] MEDS: amitriptyline 25mg tablet PO SCH (20:18)
[2021-01-24] MEDS: polyethylene glycol 3350 17gm powd pack PO SCH (21:00)
[2021-01-24 22:00] VITALS: BP 125/59
[2021-01-24] MEDS: insulin glargine (Lantus) pen - multi-dose SQ SCH (22:10)
[2021-01-24] MEDS: chlorproMAZINE 25mg tablet PO SCH (22:11)
[2021-01-25 02:00] VITALS: BP 129/75
[2021-01-25 06:00] VITALS: BP 128/70
--- NOTE | 2021-01-25 06:10 | NUR ---
received report from johanne denney
[2021-01-25] MEDS: docusate sod 100mg capsule PO SCH ×2 (07:12→21:25)
[2021-01-25] MEDS: lurasidone 20mg tablet PO SCH (07:12)
[2021-01-25] MEDS: busPIRone 5mg tablet PO SCH ×2 (07:12→21:25)
[2021-01-25] MEDS: aspirin 81mg, enteric-coated 1 TAB TABLET.DR PO SCH (07:12)
[2021-01-25] MEDS: sertraline 50mg tablet PO SCH (07:13)
[2021-01-25] MEDS: cholecalciferol (vitamin D3) 1,000 unit (25mcg) tablet PO SCH (07:13)
[2021-01-25] MEDS: gabapentin 300mg capsule PO SCH (07:13)
[2021-01-25] MEDS: montelukast 10mg tablet PO SCH (07:14)
[2021-01-25] MEDS: buPROPion SR 150mg tablet PO SCH ×2 (07:14→21:24)
[2021-01-25] MEDS: methylPREDNISolone sod succ/PF 40mg inj. IV SCH ×2 (07:15→21:28)
[2021-01-25] MEDS: enoxaparin 40mg/0.4ml syringe SUBCUT SCH ×2 (07:25→21:32)
[2021-01-25] MEDS: NUT.TX.GLUC.INTOLER,LAC-FR,SOY (GLUCERNA) 237 ML PO SCH ×3 (07:27→18:00)
[2021-01-25] MEDS: insulin Lispro (HumaLOG) vial - multi-dose SQ SCH ×3 (08:53→19:34)
[2021-01-25 09:19] LABS: D-DIMER 1.23 MG/L FEU (0-0.50)
[2021-01-25 09:37] LABS: ABG BASE EXCESS 2.6 mmol/L (-2.0-2.0); ABG OXYGEN SATURATION 89.5 % (94-97); ABG PCO2 (T) 41.3 mmHg (32.0-45.0); ABG PO2 (T) 57.7 mmHg (75.0-100.0); ALLEN'S TEST POSITIVE; FCOHb 0.4 % (0.0-3.9); FLOW 50 L/min; FMetHb 0.1 % (0.0-1.5); FO2Hb 89.1 % (94-97)
[2021-01-25 10:00] VITALS: BP 125/70
--- NOTE | 2021-01-25 13:34 | NUR ---
Reassessment: Pt PO meals remains poor ~25% avg fluctuating carb controlled diet though Glucerna ONS intake improving to 100% partially meeting needs. May benefit from Ensure Enlive TIDWM instead of Glucerna to optimize kcals/protein if MD agreeable; unable to reach RN following multiple attempts. Pt now receiving max assistance w/ meals r/t concerns of being unable to self-feed given respiratory status per EMR. Noted pt remains on high flow currently 50L/min per RT notes. Respiratory status likely impacting PO trends. Will send smoothies TIDWM for additional kcals given ONS acceptance likely tolerating liquid PO better currently; dietary notified. LBM 01/24 receiving routine colace and miralax. Will continue to monitor. Recs: 1. Continue CCHO diet as tolerated 2. Glucerna TID, consider Ensure Enlive TIDWM given ONS acceptance and poor PO trends 3. Bowel care per rx 4. scaled wt this admit; subsequent weekly wts 5. DM education deferred until more appropriate Addendum: 01/25/21 at [address] Amended: Links added.
[2021-01-25 14:00] VITALS: BP 106/58
[2021-01-25 18:00] VITALS: BP 105/54
--- NOTE | 2021-01-25 18:21 | NUR ---
gave report to johanne denney
[2021-01-25] MEDS: polyethylene glycol 3350 17gm powd pack PO SCH (21:00)
[2021-01-25] MEDS: insulin glargine (Lantus) pen - multi-dose SQ SCH (21:21)
[2021-01-25] MEDS: LORazepam 0.5 MG tablet PO PRN (21:23)
[2021-01-25] MEDS: amitriptyline 25mg tablet PO SCH (21:24)
[2021-01-25] MEDS: traZODone 50mg tablet PO SCH (21:25)
[2021-01-25] MEDS: chlorproMAZINE 25mg tablet PO SCH (21:33)
[2021-01-25 22:00] VITALS: BP 90/51
[2021-01-26 02:00] VITALS: BP 97/43
[2021-01-26 06:00] VITALS: BP_SYST 111; BP_SYST 125; BP_DIAS 51; BP_DIAS 70
--- NOTE | 2021-01-26 07:46 | NUR ---
Patient in room ORTHO 4007. I have received report from NIALL AGARWAL and had the opportunity to ask questions and assume patient care.
[2021-01-26] MEDS: NUT.TX.GLUC.INTOLER,LAC-FR,SOY (GLUCERNA) 237 ML PO SCH ×3 (08:00→18:19)
[2021-01-26] MEDS: lurasidone 20mg tablet PO SCH (08:00)
[2021-01-26] MEDS: sertraline 50mg tablet PO SCH (09:33)
[2021-01-26] MEDS: aspirin 81mg, enteric-coated 1 TAB TABLET.DR PO SCH (09:33)
[2021-01-26] MEDS: busPIRone 5mg tablet PO SCH ×2 (09:33→22:57)
[2021-01-26] MEDS: buPROPion SR 150mg tablet PO SCH ×2 (09:33→22:57)
[2021-01-26] MEDS: montelukast 10mg tablet PO SCH (09:34)
[2021-01-26] MEDS: LORazepam 0.5 MG tablet PO PRN (09:34)
[2021-01-26] MEDS: docusate sod 100mg capsule PO SCH ×2 (09:34→22:58)
[2021-01-26] MEDS: cholecalciferol (vitamin D3) 1,000 unit (25mcg) tablet PO SCH (09:34)
[2021-01-26] MEDS: gabapentin 300mg capsule PO SCH (09:34)
[2021-01-26] MEDS: enoxaparin 40mg/0.4ml syringe SUBCUT SCH ×2 (09:35→22:59)
[2021-01-26] MEDS: methylPREDNISolone sod succ/PF 40mg inj. IV SCH ×2 (09:35→22:58)
[2021-01-26 14:00] VITALS: BP 121/58
[2021-01-26] MEDS: normal saline 1000ml 1,000 ML IV SCH (15:35)
[2021-01-26 19:30] VITALS: BP 122/72
[2021-01-26] MEDS: polyethylene glycol 3350 17gm powd pack PO SCH (21:00)
[2021-01-26] MEDS: insulin glargine (Lantus) pen - multi-dose SQ SCH (22:56)
[2021-01-26] MEDS: traZODone 50mg tablet PO SCH (22:57)
[2021-01-26] MEDS: amitriptyline 25mg tablet PO SCH (22:57)
[2021-01-26] MEDS: chlorproMAZINE 25mg tablet PO SCH (22:58)
[2021-01-27 06:00] VITALS: BP 90/46
--- NOTE | 2021-01-27 06:45 | NUR ---
Patient in room ORTHO 4007. I have received report from STEFANO YODER and had the opportunity to ask questions and assume patient care.
[2021-01-27] MEDS: NUT.TX.GLUC.INTOLER,LAC-FR,SOY (GLUCERNA) 237 ML PO SCH ×3 (08:00→18:56)
[2021-01-27 08:45] LABS: BASOPHILS % (AUTO) 0.1 % (0-1); EOSINOPHILS % (AUTO) 0.4 % (0-6); HEMATOCRIT 34.4 % (35.0-45.0); HEMOGLOBIN 11.4 g/dl (12.0-16.0); LYMPHOCYTES # (AUTO) 0.3 X10'3 (1.1-4.8); LYMPHOCYTES % (AUTO) 3.3 % (21-51); MEAN CORPUSCULAR HEMOGLOBIN 30.8 PG (27.0-31.0); MEAN CORPUSCULAR HGB CONC 33.2 g/dL (33.0-36.5); MEAN CORPUSCULAR VOLUME 92.8 FL (78-98); MEAN PLATELET VOLUME 8.6 FL (7.4-10.4); MONOCYTES # (AUTO) 0.5 X10'3 (0-0.9); MONOCYTES % (AUTO) 4.5 % (2-12); NEUTROPHILS # (AUTO) 9.3 X10'3 (1.8-7.7); NEUTROPHILS % (AUTO) 91.7 % (42-75); PLATELET COUNT 429 X10'3 (140-440); RED BLOOD COUNT 3.71 X10'6 (4.20-5.60); RED CELL DISTRIBUTION WIDTH 13.9 % (11.5-14.5); WHITE BLOOD COUNT 10.2 X10'3 (4.5-11.0)
[2021-01-27 08:59] LABS: ALANINE AMINOTRANSFERASE 33 U/L (12-78); ALBUMIN 2.3 G/DL (3.4-5.0); ALBUMIN/GLOBULIN RATIO 0.5 (1.1-1.5); ALKALINE PHOSPHATASE 88 IU/L (46-116); ANION GAP 5 (8-16); ASPARTATE AMINO TRANSFERASE 18 U/L (10-37); BILIRUBIN,TOTAL 0.5 MG/DL (0.1-1.0); BLOOD UREA NITROGEN 21 MG/DL (7-18); BUN/CREATININE RATIO 32.3 (6.6-38.0); C-REACTIVE PROTEIN 4.22 MG/DL (0.0-0.5); CALCIUM 8.7 MG/DL (8.5-10.1); CHLORIDE 101 MMOL/L (99-107); CREATININE 0.65 MG/DL (0.40-0.90); GLUCOSE 205 MG/DL (70-104); SODIUM 137 MMOL/L (135-145); TOTAL CARBON DIOXIDE 30.7 MMOL/L (24-32); TOTAL PROTEIN 6.7 G/DL (6.4-8.2); eGFR > 90 ML/MIN
[2021-01-27 10:00] VITALS: BP 110/62
[2021-01-27] MEDS: lurasidone 20mg tablet PO SCH (10:21)
[2021-01-27] MEDS: montelukast 10mg tablet PO SCH (10:21)
[2021-01-27] MEDS: gabapentin 300mg capsule PO SCH (10:21)
[2021-01-27] MEDS: buPROPion SR 150mg tablet PO SCH ×2 (10:21→19:21)
[2021-01-27] MEDS: docusate sod 100mg capsule PO SCH ×2 (10:21→20:00)
[2021-01-27] MEDS: aspirin 81mg, enteric-coated 1 TAB TABLET.DR PO SCH (10:21)
[2021-01-27] MEDS: insulin Lispro (HumaLOG) vial - multi-dose SQ SCH ×2 (10:21→19:27)
[2021-01-27] MEDS: sertraline 50mg tablet PO SCH (10:21)
[2021-01-27] MEDS: busPIRone 5mg tablet PO SCH ×2 (10:22→19:21)
[2021-01-27] MEDS: cholecalciferol (vitamin D3) 1,000 unit (25mcg) tablet PO SCH (10:22)
[2021-01-27] MEDS: methylPREDNISolone sod succ/PF 40mg inj. IV SCH ×2 (10:22→19:20)
[2021-01-27] MEDS: enoxaparin 40mg/0.4ml syringe SUBCUT SCH ×2 (10:23→19:21)
[2021-01-27 15:00] VITALS: BP 102/69
[2021-01-27 18:00] VITALS: BP 106/55
--- NOTE | 2021-01-27 18:59 | NUR ---
Problems reprioritized. Patient report given, questions answered & plan of care reviewed with STEFANO RODRIGUEZ.
[2021-01-27 22:00] VITALS: BP 99/58
[2021-01-27] MEDS: amitriptyline 25mg tablet PO SCH (22:02)
[2021-01-27] MEDS: polyethylene glycol 3350 17gm powd pack PO SCH (22:03)
[2021-01-27] MEDS: traZODone 50mg tablet PO SCH (22:03)
[2021-01-27] MEDS: chlorproMAZINE 25mg tablet PO SCH (22:06)
[2021-01-27] MEDS: insulin glargine (Lantus) pen - multi-dose SQ SCH (22:08)
--- NOTE | 2021-01-27 22:35 | NUR ---
RC'D VERBAL REPORT FROM LOIS AGARWAL AT 1830 AND ASSUMED CARE OF PATIENT.
[2021-01-28 02:00] VITALS: BP 96/52
[2021-01-28] MEDS: HYDROcodone/acetaminophen 5mg/325mg tablet PO PRN (04:30)
[2021-01-28] MEDS: LORazepam 0.5 MG tablet PO PRN (04:42)
[2021-01-28 06:00] VITALS: BP 123/65
[2021-01-28] MEDS: normal saline 1000ml 1,000 ML IV SCH (07:00)
[2021-01-28] MEDS: aspirin 81mg, enteric-coated 1 TAB TABLET.DR PO SCH (07:43)
[2021-01-28] MEDS: cholecalciferol (vitamin D3) 1,000 unit (25mcg) tablet PO SCH (07:43)
[2021-01-28] MEDS: methylPREDNISolone sod succ/PF 40mg inj. IV SCH ×2 (07:43→21:00)
[2021-01-28] MEDS: busPIRone 5mg tablet PO SCH ×2 (07:43→19:30)
[2021-01-28] MEDS: docusate sod 100mg capsule PO SCH ×2 (07:43→19:30)
[2021-01-28] MEDS: gabapentin 300mg capsule PO SCH (07:44)
[2021-01-28] MEDS: montelukast 10mg tablet PO SCH (07:44)
[2021-01-28] MEDS: lurasidone 20mg tablet PO SCH (07:44)
[2021-01-28] MEDS: NUT.TX.GLUC.INTOLER,LAC-FR,SOY (GLUCERNA) 237 ML PO SCH ×3 (07:44→18:38)
[2021-01-28] MEDS: enoxaparin 40mg/0.4ml syringe SUBCUT SCH ×2 (07:44→19:30)
[2021-01-28] MEDS: buPROPion SR 150mg tablet PO SCH ×2 (07:44→19:30)
[2021-01-28] MEDS: sertraline 50mg tablet PO SCH (07:44)
[2021-01-28 08:36] LABS: BASOPHILS % (AUTO) 0.3 % (0-1); EOSINOPHILS # (AUTO) 0.1 X10'3 (0-0.9); EOSINOPHILS % (AUTO) 0.7 % (0-6); HEMATOCRIT 32.8 % (35.0-45.0); HEMOGLOBIN 10.9 g/dl (12.0-16.0); LYMPHOCYTES # (AUTO) 0.8 X10'3 (1.1-4.8); LYMPHOCYTES % (AUTO) 9.2 % (21-51); MEAN CORPUSCULAR HGB CONC 33.4 g/dL (33.0-36.5); MEAN CORPUSCULAR VOLUME 92.9 FL (78-98); MEAN PLATELET VOLUME 8.9 FL (7.4-10.4); MONOCYTES % (AUTO) 11.4 % (2-12); NEUTROPHILS # (AUTO) 6.7 X10'3 (1.8-7.7); NEUTROPHILS % (AUTO) 78.4 % (42-75); PLATELET COUNT 390 X10'3 (140-440); RED BLOOD COUNT 3.53 X10'6 (4.20-5.60); WHITE BLOOD COUNT 8.5 X10'3 (4.5-11.0)
[2021-01-28 09:24] LABS: ALANINE AMINOTRANSFERASE 35 U/L (12-78); ALBUMIN 2.3 G/DL (3.4-5.0); ALBUMIN/GLOBULIN RATIO 0.6 (1.1-1.5); ALKALINE PHOSPHATASE 87 IU/L (46-116); ANION GAP 8 (8-16); ASPARTATE AMINO TRANSFERASE 22 U/L (10-37); BILIRUBIN,TOTAL 0.5 MG/DL (0.1-1.0); BLOOD UREA NITROGEN 19 MG/DL (7-18); BUN/CREATININE RATIO 32.8 (6.6-38.0); C-REACTIVE PROTEIN 2.51 MG/DL (0.0-0.5); CALCIUM 8.9 MG/DL (8.5-10.1); CHLORIDE 101 MMOL/L (99-107); CREATININE 0.58 MG/DL (0.40-0.90); GLUCOSE 104 MG/DL (70-104); POTASSIUM 4.1 MMOL/L (3.5-5.1); SODIUM 139 MMOL/L (135-145); TOTAL CARBON DIOXIDE 30.4 MMOL/L (24-32); TOTAL PROTEIN 6.4 G/DL (6.4-8.2); eGFR > 90 ML/MIN
[2021-01-28] MEDS: insulin Lispro (HumaLOG) vial - multi-dose SQ SCH (09:25)
[2021-01-28 09:26] LABS: D-DIMER 1.29 MG/L FEU (0-0.50)
[2021-01-28 10:00] VITALS: BP 107/52
--- NOTE | 2021-01-28 13:25 | NUR ---
Reassessment: Pt continues with poor PO intake with average 0-25% since last RD assessment 01/25. PO intake of ONS also appears to be slowly declining from 75% down to 25-50% PO intake at two most recent, however per lot associate pt with 100% PO intake of ONS and shake this morning at breakfast. Noted patient's diet order was just changed to pureed, pending first meal since texture modification. LBM 01/26, receiving routine bowel care. Will continue to follow closely and make recommendations as appropriate pending trends in PO intake since texture modification. Recs: 1. Continue pureed CHO controlled diet; consider liberalizing to regular diet in view of poor PO intake; encourage PO intake 2. Consider BSS with ST if pt having difficulty with meals 3. Glucerna TID, consider ONS change to Ensure Enlive TIDWM for additional kcal and protein 4. Smoothie TID 5. Bowel care per rx 6. Scaled wt this admit; subsequent weekly wts 7. DM education deferred until more appropriate Addendum: 01/28/21 at [address] Amended: Links added.
[2021-01-28 14:00] VITALS: BP 110/56
[2021-01-28 18:00] VITALS: BP 97/55
--- NOTE | 2021-01-28 18:15 | NUR ---
Pt has had a good day. She has been able to communicate with hand gestures. Her diet was changed to puree CC and she was able to feed herself much better. The wick leaked once and she was able to let me know so we could clean her up. Oral care was performed along with use of yaunker throughout shift. Pt tolerated well.
--- NOTE | 2021-01-28 18:30 | NUR ---
Problems reprioritized. Patient report given, questions answered & plan of care reviewed with STEFANO Oneill.
--- NOTE | 2021-01-28 19:15 | NUR ---
RC'D REPORT FROM [facility]. PATIENT DID NOT RECEIVE INSULIN COVERAGE AT NOON AND HAS A BS OF 243 BEFORE DINNER. ATE MOST OF HER CARB CONTROL DINNER WELL HER PROTEIN SHAKE, AND GLUCERNA. PER NUTRITIONAL SCALE, WOULD RECEIVE 35 UNITS. PATIENT HAS NOT RECEIVED THIS AMT PREVIOUSLY AND CALL ED DR. CLARK WHO GAVE ME A VERBAL ORDER TO GIVE HER 12 UNITS.
[2021-01-28] MEDS ORDERED: insulin Lispro (HumaLOG) vial - multi-dose SQ ONE (19:25)
[2021-01-28] MEDS: traZODone 50mg tablet PO SCH (21:04)
[2021-01-28] MEDS: polyethylene glycol 3350 17gm powd pack PO SCH (21:04)
[2021-01-28] MEDS: amitriptyline 25mg tablet PO SCH (21:04)
[2021-01-28] MEDS: chlorproMAZINE 25mg tablet PO SCH (21:04)
[2021-01-28] MEDS: insulin glargine (Lantus) pen - multi-dose SQ SCH (21:33)
[2021-01-28] MEDS: polyvinyl alcohol ophthalmic drops 15ml bottle EACHEYE PRN (21:34)
[2021-01-28 22:00] VITALS: BP 88/49
[2021-01-29] MEDS: LORazepam 0.5 MG tablet PO PRN (01:28)
[2021-01-29 06:00] VITALS: BP 93/51
[2021-01-29] MEDS: docusate sod 100mg capsule PO SCH ×2 (07:52→20:00)
[2021-01-29] MEDS: montelukast 10mg tablet PO SCH (07:52)
[2021-01-29] MEDS: methylPREDNISolone sod succ/PF 40mg inj. IV SCH ×2 (07:52→19:59)
[2021-01-29] MEDS: busPIRone 5mg tablet PO SCH ×2 (07:52→20:00)
[2021-01-29] MEDS: lurasidone 20mg tablet PO SCH (07:52)
[2021-01-29] MEDS: aspirin 81mg, enteric-coated 1 TAB TABLET.DR PO SCH (07:52)
[2021-01-29] MEDS: gabapentin 300mg capsule PO SCH (07:52)
[2021-01-29] MEDS: buPROPion SR 150mg tablet PO SCH ×2 (07:52→20:00)
[2021-01-29] MEDS: cholecalciferol (vitamin D3) 1,000 unit (25mcg) tablet PO SCH (07:52)
[2021-01-29] MEDS: sertraline 50mg tablet PO SCH (07:52)
[2021-01-29] MEDS: enoxaparin 40mg/0.4ml syringe SUBCUT SCH ×2 (07:53→20:01)
[2021-01-29 08:09] LABS: BASOPHILS % (AUTO) 0.2 % (0-1); EOSINOPHILS % (AUTO) 0.1 % (0-6); HEMOGLOBIN 11.3 g/dl (12.0-16.0); LYMPHOCYTES # (AUTO) 0.6 X10'3 (1.1-4.8); LYMPHOCYTES % (AUTO) 5.2 % (21-51); MEAN CORPUSCULAR HGB CONC 33.3 g/dL (33.0-36.5); MEAN CORPUSCULAR VOLUME 93.1 FL (78-98); MEAN PLATELET VOLUME 9.1 FL (7.4-10.4); MONOCYTES # (AUTO) 0.8 X10'3 (0-0.9); MONOCYTES % (AUTO) 7.5 % (2-12); NEUTROPHILS # (AUTO) 9.4 X10'3 (1.8-7.7); PLATELET COUNT 401 X10'3 (140-440); RED BLOOD COUNT 3.65 X10'6 (4.20-5.60); RED CELL DISTRIBUTION WIDTH 13.9 % (11.5-14.5); WHITE BLOOD COUNT 10.8 X10'3 (4.5-11.0)
[2021-01-29] MEDS ORDERED: normal saline 1000ml 1,000 ML IV ONE (08:25)
[2021-01-29] MEDS: NUT.TX.GLUC.INTOLER,LAC-FR,SOY (GLUCERNA) 237 ML PO SCH ×3 (08:33→18:00)
[2021-01-29] MEDS: insulin Lispro (HumaLOG) vial - multi-dose SQ SCH ×2 (08:42→19:58)
[2021-01-29 08:47] LABS: ALANINE AMINOTRANSFERASE 37 U/L (12-78); ALBUMIN 2.4 G/DL (3.4-5.0); ALBUMIN/GLOBULIN RATIO 0.5 (1.1-1.5); ALKALINE PHOSPHATASE 90 IU/L (46-116); ANION GAP 9 (8-16); ASPARTATE AMINO TRANSFERASE 18 U/L (10-37); BILIRUBIN,TOTAL 0.4 MG/DL (0.1-1.0); BLOOD UREA NITROGEN 21 MG/DL (7-18); BUN/CREATININE RATIO 36.2 (6.6-38.0); C-REACTIVE PROTEIN 1.94 MG/DL (0.0-0.5); CHLORIDE 102 MMOL/L (99-107); CREATININE 0.58 MG/DL (0.40-0.90); GLUCOSE 152 MG/DL (70-104); POTASSIUM 4.5 MMOL/L (3.5-5.1); SODIUM 141 MMOL/L (135-145); TOTAL CARBON DIOXIDE 30.1 MMOL/L (24-32); TOTAL PROTEIN 6.8 G/DL (6.4-8.2); eGFR > 90 ML/MIN
[2021-01-29 08:58] LABS: D-DIMER 0.89 MG/L FEU (0-0.50)
[2021-01-29 10:00] VITALS: BP 118/61
--- NOTE | 2021-01-29 11:49 | NUR ---
Son called and spoke with patient on the phone.
[2021-01-29] MEDS: normal saline 1000ml 1,000 ML IV SCH (15:02)
--- NOTE | 2021-01-29 16:01 | NUR ---
Was able to titrate oxygen down to 22L today. Patient is starting to feed herself, does get tired quickly. Slept through lunch today. Picking at food right now.
[2021-01-29] MEDS: polyethylene glycol 3350 17gm powd pack PO SCH (21:00)
[2021-01-29 22:00] VITALS: BP 101/61
[2021-01-30] MEDS: insulin glargine (Lantus) pen - multi-dose SQ SCH ×2 (00:06→23:43)
[2021-01-30] MEDS: traZODone 50mg tablet PO SCH ×2 (00:10→23:46)
[2021-01-30] MEDS: amitriptyline 25mg tablet PO SCH ×2 (00:11→23:46)
[2021-01-30] MEDS: chlorproMAZINE 25mg tablet PO SCH ×2 (00:12→23:48)
[2021-01-30] MEDS: polyvinyl alcohol ophthalmic drops 15ml bottle EACHEYE PRN ×3 (00:23→23:58)
[2021-01-30] MEDS: LORazepam 0.5 MG tablet PO PRN ×3 (00:42→19:46)
[2021-01-30] MEDS: normal saline 1000ml 1,000 ML IV SCH ×2 (01:02→05:27)
[2021-01-30 02:00] VITALS: BP 111/54
[2021-01-30 06:00] VITALS: BP 84/39
--- NOTE | 2021-01-30 06:27 | NUR ---
Problems reprioritized. Patient report given, questions answered & plan of care reviewed with STEFANO Tolliver.
[2021-01-30] MEDS: NUT.TX.GLUC.INTOLER,LAC-FR,SOY (GLUCERNA) 237 ML PO SCH ×3 (08:00→18:00)
[2021-01-30 08:19] LABS: BASOPHILS % (AUTO) 0.3 % (0-1); EOSINOPHILS % (AUTO) 0.1 % (0-6); HEMATOCRIT 30.5 % (35.0-45.0); HEMOGLOBIN 10.1 g/dl (12.0-16.0); LYMPHOCYTES # (AUTO) 0.7 X10'3 (1.1-4.8); LYMPHOCYTES % (AUTO) 8.8 % (21-51); MEAN CORPUSCULAR HEMOGLOBIN 30.9 PG (27.0-31.0); MEAN CORPUSCULAR VOLUME 93.5 FL (78-98); MEAN PLATELET VOLUME 8.9 FL (7.4-10.4); MONOCYTES # (AUTO) 0.8 X10'3 (0-0.9); MONOCYTES % (AUTO) 9.8 % (2-12); NEUTROPHILS # (AUTO) 6.6 X10'3 (1.8-7.7); PLATELET COUNT 347 X10'3 (140-440); RED BLOOD COUNT 3.27 X10'6 (4.20-5.60); RED CELL DISTRIBUTION WIDTH 13.6 % (11.5-14.5); WHITE BLOOD COUNT 8.2 X10'3 (4.5-11.0)
[2021-01-30 08:44] LABS: ALANINE AMINOTRANSFERASE 31 U/L (12-78); ALBUMIN 2.1 G/DL (3.4-5.0); ALBUMIN/GLOBULIN RATIO 0.6 (1.1-1.5); ALKALINE PHOSPHATASE 76 IU/L (46-116); ANION GAP 4 (8-16); ASPARTATE AMINO TRANSFERASE 18 U/L (10-37); BILIRUBIN,TOTAL 0.3 MG/DL (0.1-1.0); BLOOD UREA NITROGEN 17 MG/DL (7-18); BUN/CREATININE RATIO 36.2 (6.6-38.0); C-REACTIVE PROTEIN 1.17 MG/DL (0.0-0.5); CALCIUM 8.3 MG/DL (8.5-10.1); CHLORIDE 103 MMOL/L (99-107); CREATININE 0.47 MG/DL (0.40-0.90); GLUCOSE 79 MG/DL (70-104); POTASSIUM 4.1 MMOL/L (3.5-5.1); SODIUM 139 MMOL/L (135-145); TOTAL CARBON DIOXIDE 32.4 MMOL/L (24-32); TOTAL PROTEIN 5.9 G/DL (6.4-8.2); eGFR > 90 ML/MIN
[2021-01-30 08:51] LABS: D-DIMER 0.89 MG/L FEU (0-0.50)
[2021-01-30] MEDS: gabapentin 300mg capsule PO SCH (09:24)
[2021-01-30] MEDS: buPROPion SR 150mg tablet PO SCH ×2 (09:24→19:45)
[2021-01-30] MEDS: busPIRone 5mg tablet PO SCH ×2 (09:24→19:46)
[2021-01-30] MEDS: lurasidone 20mg tablet PO SCH (09:24)
[2021-01-30] MEDS: aspirin 81mg, enteric-coated 1 TAB TABLET.DR PO SCH (09:24)
[2021-01-30] MEDS: docusate sod 100mg capsule PO SCH ×2 (09:24→20:00)
[2021-01-30] MEDS: montelukast 10mg tablet PO SCH (09:24)
[2021-01-30] MEDS: cholecalciferol (vitamin D3) 1,000 unit (25mcg) tablet PO SCH (09:24)
[2021-01-30] MEDS: sertraline 50mg tablet PO SCH (09:24)
[2021-01-30] MEDS: enoxaparin 40mg/0.4ml syringe SUBCUT SCH ×2 (09:25→19:46)
[2021-01-30 10:00] VITALS: BP 130/70
[2021-01-30] MEDS: insulin Lispro (HumaLOG) vial - multi-dose SQ SCH (14:52)
[2021-01-30] MEDS: methylPREDNISolone sod succ/PF 40mg inj. IV SCH (19:47)
[2021-01-30] MEDS: polyethylene glycol 3350 17gm powd pack PO SCH (21:00)
[2021-01-30 22:00] VITALS: BP 128/69
[2021-01-31] MEDS: LORazepam 0.5 MG tablet PO PRN ×2 (01:44→23:54)
[2021-01-31 02:00] VITALS: BP 123/58
[2021-01-31 06:00] VITALS: BP 113/53
--- NOTE | 2021-01-31 07:02 | NUR ---
Problems reprioritized. Patient report given, questions answered & plan of care reviewed with STEFANO Tolliver.
[2021-01-31] MEDS: methylPREDNISolone sod succ/PF 40mg inj. IV SCH ×2 (08:56→21:50)
[2021-01-31] MEDS: busPIRone 5mg tablet PO SCH ×2 (08:57→21:48)
[2021-01-31] MEDS: lurasidone 20mg tablet PO SCH (08:57)
[2021-01-31] MEDS: gabapentin 300mg capsule PO SCH (08:57)
[2021-01-31] MEDS: aspirin 81mg, enteric-coated 1 TAB TABLET.DR PO SCH (08:57)
[2021-01-31] MEDS: NUT.TX.GLUC.INTOLER,LAC-FR,SOY (GLUCERNA) 237 ML PO SCH ×3 (08:57→18:00)
[2021-01-31] MEDS: montelukast 10mg tablet PO SCH (08:58)
[2021-01-31] MEDS: enoxaparin 40mg/0.4ml syringe SUBCUT SCH ×2 (08:58→21:49)
[2021-01-31] MEDS: sertraline 50mg tablet PO SCH (08:58)
[2021-01-31] MEDS: cholecalciferol (vitamin D3) 1,000 unit (25mcg) tablet PO SCH (08:58)
[2021-01-31] MEDS: buPROPion SR 150mg tablet PO SCH ×2 (08:58→21:48)
[2021-01-31 09:01] LABS: BASOPHILS % (AUTO) 0.4 % (0-1); EOSINOPHILS # (AUTO) 0.1 X10'3 (0-0.9); EOSINOPHILS % (AUTO) 0.7 % (0-6); HEMATOCRIT 31.4 % (35.0-45.0); HEMOGLOBIN 10.7 g/dl (12.0-16.0); LYMPHOCYTES # (AUTO) 1.2 X10'3 (1.1-4.8); LYMPHOCYTES % (AUTO) 13.8 % (21-51); MEAN CORPUSCULAR HEMOGLOBIN 31.1 PG (27.0-31.0); MEAN CORPUSCULAR VOLUME 91.6 FL (78-98); MEAN PLATELET VOLUME 9.2 FL (7.4-10.4); MONOCYTES # (AUTO) 0.9 X10'3 (0-0.9); MONOCYTES % (AUTO) 9.9 % (2-12); NEUTROPHILS # (AUTO) 6.6 X10'3 (1.8-7.7); NEUTROPHILS % (AUTO) 75.2 % (42-75); PLATELET COUNT 350 X10'3 (140-440); RED BLOOD COUNT 3.43 X10'6 (4.20-5.60); RED CELL DISTRIBUTION WIDTH 13.9 % (11.5-14.5); WHITE BLOOD COUNT 8.7 X10'3 (4.5-11.0)
[2021-01-31 09:20] LABS: ALANINE AMINOTRANSFERASE 32 U/L (12-78); ALBUMIN 2.1 G/DL (3.4-5.0); ALBUMIN/GLOBULIN RATIO 0.5 (1.1-1.5); ALKALINE PHOSPHATASE 80 IU/L (46-116); ANION GAP 5 (8-16); ASPARTATE AMINO TRANSFERASE 18 U/L (10-37); BILIRUBIN,TOTAL 0.4 MG/DL (0.1-1.0); BLOOD UREA NITROGEN 12 MG/DL (7-18); BUN/CREATININE RATIO 27.9 (6.6-38.0); C-REACTIVE PROTEIN 3.33 MG/DL (0.0-0.5); CALCIUM 8.5 MG/DL (8.5-10.1); CHLORIDE 101 MMOL/L (99-107); CREATININE 0.43 MG/DL (0.40-0.90); GLUCOSE 60 MG/DL (70-104); POTASSIUM 3.9 MMOL/L (3.5-5.1); SODIUM 137 MMOL/L (135-145); TOTAL CARBON DIOXIDE 31.4 MMOL/L (24-32); TOTAL PROTEIN 6.5 G/DL (6.4-8.2); eGFR > 90 ML/MIN
[2021-01-31 09:49] LABS: D-DIMER 0.94 MG/L FEU (0-0.50)
[2021-01-31 10:00] VITALS: BP 113/53
[2021-01-31 14:00] VITALS: BP 101/86
--- NOTE | 2021-01-31 14:42 | NUR ---
F/u 01/31: Pt PO meals continues to fluctuate ~25-50% avg pureed/carb controlled/thin diet w/ smoothie TIDWM and 75-100% avg Glucerna TIDWM. Pt dentures missing in addition to requiring 25L high flow per EMR likely explaining pureed diet. Partially meeting needs at this time. Pt would benefit from ONS change to Ensure Enlive TIDWM given PO hx; RD attempted to reach RN regarding updated recs however unable to at this time. Noted Glu 61 mg/dl this AM pt received 26 units lantus last night for AM Glu 75; Glu now corrected to 175mg/dl on glycemic protocol per EMR. LBM 01/29 receiving routine colace. Will continue to monitor for PO trends and additional protein/kcal needs. Recs: 1. Continue pureed CHO controlled diet; consider liberalizing to regular diet in view of poor PO intake; encourage PO intake 2. Consider BSS with ST if pt having difficulty with meals 3. Glucerna TID; consider Ensure Enlive TIDWM if MD agreeable given PO hx; encourage ONS PO 4. Smoothie TIDWM; encourage PO 5. Bowel care per rx 6. Scaled wt this admit; subsequent weekly wts 7. DM education deferred until more appropriate Addendum: 01/31/21 at [address] Amended: Links added.
--- NOTE | 2021-01-31 14:56 | NUR ---
PAGER ID: [phone] MESSAGE: [phone] fyi :) :) 93% hi flow 7L she is happy!, requires more for activity CB
--- NOTE | 2021-01-31 18:00 | NUR ---
Pt VS not recorded on vitals sheet at 1800.
--- NOTE | 2021-01-31 18:30 | NUR ---
Report to Laine AGARWAL
[2021-01-31] MEDS: polyethylene glycol 3350 17gm powd pack PO SCH (21:00)
[2021-01-31] MEDS: insulin glargine (Lantus) pen - multi-dose SQ SCH (21:45)
[2021-01-31] MEDS: chlorproMAZINE 25mg tablet PO SCH (21:47)
[2021-01-31] MEDS: traZODone 50mg tablet PO SCH (21:47)
[2021-01-31] MEDS: amitriptyline 25mg tablet PO SCH (21:47)
[2021-01-31 22:00] VITALS: BP 116/71
[2021-01-31] MEDS: polyvinyl alcohol ophthalmic drops 15ml bottle EACHEYE PRN (22:27)
--- NOTE | 2021-01-31 22:30 | NUR ---
Pt wanted to use the translation phone but when the [employer] network engineer picked up she would not speak. She then wagged her finger and motioned that she wanted to get off the phone. She then gestured that she wanted the regular phone she took it and then did not call anyone. Unsure of why she did not speak to the [employer] network engineer.
[2021-02-01 02:00] VITALS: BP 109/53
[2021-02-01 06:00] VITALS: BP 129/68
[2021-02-01] MEDS: LORazepam 0.5 MG tablet PO PRN ×2 (06:04→23:59)
--- NOTE | 2021-02-01 06:15 | NUR ---
Patient in room ORTHO 4007. I have received report from STEFANO YI and had the opportunity to ask questions and assume patient care.
--- NOTE | 2021-02-01 07:13 | NUR ---
Problems reprioritized. Patient report given, questions answered & plan of care reviewed with STEFANO Parra.
[2021-02-01 07:53] LABS: BASOPHILS % (AUTO) 0.4 % (0-1); EOSINOPHILS % (AUTO) 0.1 % (0-6); HEMATOCRIT 31.8 % (35.0-45.0); LYMPHOCYTES # (AUTO) 0.7 X10'3 (1.1-4.8); LYMPHOCYTES % (AUTO) 6.3 % (21-51); MEAN CORPUSCULAR HEMOGLOBIN 31.5 PG (27.0-31.0); MEAN CORPUSCULAR HGB CONC 34.5 g/dL (33.0-36.5); MEAN CORPUSCULAR VOLUME 91.3 FL (78-98); MEAN PLATELET VOLUME 8.9 FL (7.4-10.4); MONOCYTES % (AUTO) 10.1 % (2-12); NEUTROPHILS # (AUTO) 8.6 X10'3 (1.8-7.7); NEUTROPHILS % (AUTO) 83.1 % (42-75); PLATELET COUNT 336 X10'3 (140-440); RED BLOOD COUNT 3.49 X10'6 (4.20-5.60); RED CELL DISTRIBUTION WIDTH 14.1 % (11.5-14.5); WHITE BLOOD COUNT 10.3 X10'3 (4.5-11.0)
[2021-02-01] MEDS: NUT.TX.GLUC.INTOLER,LAC-FR,SOY (GLUCERNA) 237 ML PO SCH ×3 (08:00→18:41)
[2021-02-01 08:31] LABS: ALANINE AMINOTRANSFERASE 36 U/L (12-78); ALBUMIN 2.4 G/DL (3.4-5.0); ALBUMIN/GLOBULIN RATIO 0.5 (1.1-1.5); ALKALINE PHOSPHATASE 82 IU/L (46-116); ANION GAP 5 (8-16); ASPARTATE AMINO TRANSFERASE 15 U/L (10-37); BILIRUBIN,TOTAL 0.4 MG/DL (0.1-1.0); BLOOD UREA NITROGEN 10 MG/DL (7-18); C-REACTIVE PROTEIN 3.01 MG/DL (0.0-0.5); CALCIUM 8.8 MG/DL (8.5-10.1); CHLORIDE 101 MMOL/L (99-107); GLUCOSE 152 MG/DL (70-104); POTASSIUM 4.3 MMOL/L (3.5-5.1); SODIUM 137 MMOL/L (135-145); TOTAL CARBON DIOXIDE 30.7 MMOL/L (24-32); TOTAL PROTEIN 6.8 G/DL (6.4-8.2); eGFR > 90 ML/MIN
[2021-02-01 08:57] LABS: D-DIMER 0.75 MG/L FEU (0-0.50)
[2021-02-01] MEDS: insulin Lispro (HumaLOG) vial - multi-dose SQ SCH (09:54)
[2021-02-01 10:00] VITALS: BP 120/63
[2021-02-01] MEDS: lurasidone 20mg tablet PO SCH (10:55)
[2021-02-01] MEDS: busPIRone 5mg tablet PO SCH ×2 (10:55→21:06)
[2021-02-01] MEDS: cholecalciferol (vitamin D3) 1,000 unit (25mcg) tablet PO SCH (10:58)
[2021-02-01] MEDS: montelukast 10mg tablet PO SCH (10:58)
[2021-02-01] MEDS: aspirin 81mg, enteric-coated 1 TAB TABLET.DR PO SCH (10:59)
[2021-02-01] MEDS: buPROPion SR 150mg tablet PO SCH ×2 (10:59→21:05)
[2021-02-01] MEDS: sertraline 50mg tablet PO SCH (11:00)
[2021-02-01] MEDS: gabapentin 300mg capsule PO SCH (11:00)
[2021-02-01] MEDS: enoxaparin 40mg/0.4ml syringe SUBCUT SCH ×2 (11:01→21:08)
--- NOTE | 2021-02-01 11:43 | NUR ---
Page Sent PAGER ID: [phone] MESSAGE: ELIZABETH 5199-RE: JANNIE LAINEZ [phone]...CAN I GET AN ORDER FOR TYLENOL FOR HEADACHE, THANK YOU :)
[2021-02-01] MEDS: acetaminophen 325mg tablet PO PRN (11:55)
[2021-02-01 14:00] VITALS: BP 85/42
[2021-02-01 18:00] VITALS: BP 110/58
--- NOTE | 2021-02-01 18:41 | NUR ---
Problems reprioritized. Patient report given, questions answered & plan of care reviewed with STEFANO VILLASEÑOR.
[2021-02-01] MEDS: methylPREDNISolone sod succ/PF 40mg inj. IV SCH (20:57)
[2021-02-01] MEDS: chlorproMAZINE 25mg tablet PO SCH (20:58)
[2021-02-01] MEDS: polyethylene glycol 3350 17gm powd pack PO SCH (21:00)
[2021-02-01] MEDS: traZODone 50mg tablet PO SCH (21:06)
[2021-02-01] MEDS: amitriptyline 25mg tablet PO SCH (21:07)
[2021-02-01] MEDS: insulin glargine (Lantus) pen - multi-dose SQ SCH (21:13)
[2021-02-01 22:00] VITALS: BP 106/52
--- NOTE | 2021-02-01 22:00 | NUR ---
Patient's oxygen saturation was down to 77% on 7liters HF so bumped up to 10L then up to 12L HF oxygen before saturation went up to 90-91%. Informed pt's nurse, Rochelle AGARWAL.
[2021-02-02 02:00] VITALS: BP 105/52
--- NOTE | 2021-02-02 02:00 | NUR ---
also wearing 15liters nrb mask Addendum: 02/02/21 at 0204 by Kathleen Mclean RN Amended: Links added.
[2021-02-02 06:00] VITALS: BP 110/50
--- NOTE | 2021-02-02 06:22 | NUR ---
Problems reprioritized. Patient report given, questions answered & plan of care reviewed with Jaz AGAWRAL.
--- NOTE | 2021-02-02 06:25 | NUR ---
Patient in room ORTHO 4007. I have received report from STEFANO VILLASEÑOR and had the opportunity to ask questions and assume patient care.
[2021-02-02 07:07] LABS: BASOPHILS % (AUTO) 0.2 % (0-1); EOSINOPHILS % (AUTO) 0.1 % (0-6); HEMATOCRIT 30.1 % (35.0-45.0); HEMOGLOBIN 10.4 g/dl (12.0-16.0); LYMPHOCYTES # (AUTO) 0.4 X10'3 (1.1-4.8); LYMPHOCYTES % (AUTO) 4.3 % (21-51); MEAN CORPUSCULAR HEMOGLOBIN 31.4 PG (27.0-31.0); MEAN CORPUSCULAR HGB CONC 34.4 g/dL (33.0-36.5); MEAN CORPUSCULAR VOLUME 91.1 FL (78-98); MEAN PLATELET VOLUME 8.5 FL (7.4-10.4); MONOCYTES % (AUTO) 9.7 % (2-12); NEUTROPHILS # (AUTO) 8.6 X10'3 (1.8-7.7); NEUTROPHILS % (AUTO) 85.7 % (42-75); PLATELET COUNT 302 X10'3 (140-440); RED CELL DISTRIBUTION WIDTH 14.2 % (11.5-14.5)
[2021-02-02 07:15] LABS: D-DIMER 0.69 MG/L FEU (0-0.50)
[2021-02-02 07:34] LABS: ALANINE AMINOTRANSFERASE 39 U/L (12-78); ALBUMIN 2.2 G/DL (3.4-5.0); ALBUMIN/GLOBULIN RATIO 0.5 (1.1-1.5); ALKALINE PHOSPHATASE 89 IU/L (46-116); ANION GAP 5 (8-16); ASPARTATE AMINO TRANSFERASE 21 U/L (10-37); BILIRUBIN,TOTAL 0.4 MG/DL (0.1-1.0); BLOOD UREA NITROGEN 13 MG/DL (7-18); BUN/CREATININE RATIO 22.8 (6.6-38.0); C-REACTIVE PROTEIN 4.58 MG/DL (0.0-0.5); CALCIUM 8.6 MG/DL (8.5-10.1); CHLORIDE 102 MMOL/L (99-107); CREATININE 0.57 MG/DL (0.40-0.90); GLUCOSE 152 MG/DL (70-104); POTASSIUM 4.8 MMOL/L (3.5-5.1); SODIUM 139 MMOL/L (135-145); TOTAL PROTEIN 6.5 G/DL (6.4-8.2); eGFR > 90 ML/MIN
[2021-02-02] MEDS: NUT.TX.GLUC.INTOLER,LAC-FR,SOY (GLUCERNA) 237 ML PO SCH ×2 (08:56→13:21)
[2021-02-02] MEDS: cholecalciferol (vitamin D3) 1,000 unit (25mcg) tablet PO SCH (09:04)
[2021-02-02] MEDS: buPROPion SR 150mg tablet PO SCH ×2 (09:05→20:25)
[2021-02-02] MEDS: sertraline 50mg tablet PO SCH (09:05)
[2021-02-02] MEDS: lurasidone 20mg tablet PO SCH (09:07)
[2021-02-02] MEDS: busPIRone 5mg tablet PO SCH ×2 (09:07→20:24)
[2021-02-02] MEDS: aspirin 81mg, enteric-coated 1 TAB TABLET.DR PO SCH (09:07)
[2021-02-02] MEDS: gabapentin 300mg capsule PO SCH (09:07)
[2021-02-02] MEDS: montelukast 10mg tablet PO SCH (09:08)
[2021-02-02] MEDS: enoxaparin 40mg/0.4ml syringe SUBCUT SCH ×2 (09:09→20:24)
[2021-02-02] MEDS: methylPREDNISolone sod succ/PF 40mg inj. IV SCH ×2 (09:11→20:25)
[2021-02-02] MEDS: insulin Lispro (HumaLOG) vial - multi-dose SQ SCH ×3 (09:47→19:41)
[2021-02-02 11:00] VITALS: BP 151/78
[2021-02-02] MEDS: HYDROcodone/acetaminophen 5mg/325mg tablet PO PRN ×2 (11:37→22:52)
[2021-02-02 18:00] VITALS: BP 124/67
[2021-02-02] MEDS: lactose-reduced food (Ensure Enlive) - 237ml bottle PO SCH (18:13)
--- NOTE | 2021-02-02 18:56 | NUR ---
Problems reprioritized. Patient report given, questions answered & plan of care reviewed with STEFANO SCHOFIELD.
[2021-02-02] MEDS: polyethylene glycol 3350 17gm powd pack PO SCH (20:23)
[2021-02-02] MEDS: traZODone 50mg tablet PO SCH (20:25)
[2021-02-02] MEDS: amitriptyline 25mg tablet PO SCH (20:25)
[2021-02-02] MEDS: LORazepam 0.5 MG tablet PO PRN (20:25)
[2021-02-02] MEDS: insulin glargine (Lantus) pen - multi-dose SQ SCH (21:00)
[2021-02-02 22:00] VITALS: BP 121/53
[2021-02-02] MEDS: chlorproMAZINE 25mg tablet PO SCH (22:58)
[2021-02-02] MEDS ORDERED: insulin glargine (Lantus) pen - multi-dose SQ ONE (23:25)
--- NOTE | 2021-02-02 23:28 | NUR ---
Called Dr. Stallings regarding pt's low blood sugar of 74 and he ordered her to have only 10 units Lantus tonight.
[2021-02-03 02:00] VITALS: BP 122/56
[2021-02-03] MEDS: acetaminophen 325mg tablet PO PRN ×2 (05:43→16:21)
[2021-02-03 06:00] VITALS: BP 93/50
--- NOTE | 2021-02-03 06:15 | NUR ---
Problems reprioritized. Patient report given, questions answered & plan of care reviewed with STEFANO Gore.
[2021-02-03] MEDS: sertraline 50mg tablet PO SCH (07:10)
[2021-02-03] MEDS: buPROPion SR 150mg tablet PO SCH ×2 (07:10→20:00)
[2021-02-03] MEDS: montelukast 10mg tablet PO SCH (07:10)
[2021-02-03] MEDS: aspirin 81mg, enteric-coated 1 TAB TABLET.DR PO SCH (07:10)
[2021-02-03] MEDS: busPIRone 5mg tablet PO SCH ×2 (07:10→20:00)
[2021-02-03] MEDS: cholecalciferol (vitamin D3) 1,000 unit (25mcg) tablet PO SCH (07:10)
[2021-02-03] MEDS: methylPREDNISolone sod succ/PF 40mg inj. IV SCH (07:11)
[2021-02-03] MEDS: gabapentin 300mg capsule PO SCH (07:11)
[2021-02-03] MEDS: enoxaparin 40mg/0.4ml syringe SUBCUT SCH ×2 (07:12→20:28)
[2021-02-03] MEDS: lurasidone 20mg tablet PO SCH (07:15)
[2021-02-03] MEDS: lactose-reduced food (Ensure Enlive) - 237ml bottle PO SCH ×3 (08:00→18:41)
[2021-02-03 08:38] LABS: D-DIMER 0.86 MG/L FEU (0-0.50)
[2021-02-03 08:44] LABS: BASOPHILS % (AUTO) 0.3 % (0-1); EOSINOPHILS % (AUTO) 0.1 % (0-6); HEMATOCRIT 31.1 % (35.0-45.0); HEMOGLOBIN 10.5 g/dl (12.0-16.0); LYMPHOCYTES # (AUTO) 0.6 X10'3 (1.1-4.8); LYMPHOCYTES % (AUTO) 7.5 % (21-51); MEAN CORPUSCULAR HGB CONC 33.8 g/dL (33.0-36.5); MEAN CORPUSCULAR VOLUME 91.5 FL (78-98); MEAN PLATELET VOLUME 9.2 FL (7.4-10.4); MONOCYTES # (AUTO) 0.7 X10'3 (0-0.9); MONOCYTES % (AUTO) 9.7 % (2-12); NEUTROPHILS # (AUTO) 6.3 X10'3 (1.8-7.7); NEUTROPHILS % (AUTO) 82.4 % (42-75); PLATELET COUNT 284 X10'3 (140-440); RED CELL DISTRIBUTION WIDTH 14.1 % (11.5-14.5); WHITE BLOOD COUNT 7.7 X10'3 (4.5-11.0)
[2021-02-03 08:46] LABS: ALANINE AMINOTRANSFERASE 53 U/L (12-78); ALBUMIN 2.2 G/DL (3.4-5.0); ALBUMIN/GLOBULIN RATIO 0.5 (1.1-1.5); ALKALINE PHOSPHATASE 97 IU/L (46-116); ANION GAP 5 (8-16); ASPARTATE AMINO TRANSFERASE 20 U/L (10-37); BILIRUBIN,TOTAL 0.3 MG/DL (0.1-1.0); BLOOD UREA NITROGEN 13 MG/DL (7-18); BUN/CREATININE RATIO 23.6 (6.6-38.0); CALCIUM 8.7 MG/DL (8.5-10.1); CHLORIDE 99 MMOL/L (99-107); CREATININE 0.55 MG/DL (0.40-0.90); GLUCOSE 160 MG/DL (70-104); POTASSIUM 4.5 MMOL/L (3.5-5.1); SODIUM 136 MMOL/L (135-145); TOTAL CARBON DIOXIDE 32.1 MMOL/L (24-32); TOTAL PROTEIN 6.6 G/DL (6.4-8.2); eGFR > 90 ML/MIN
[2021-02-03 08:53] LABS: C-REACTIVE PROTEIN 7.55 MG/DL (0.0-0.5)
[2021-02-03] MEDS: insulin Lispro (HumaLOG) vial - multi-dose SQ SCH ×3 (09:17→18:48)
--- NOTE | 2021-02-03 11:13 | NUR ---
PAGER ID: [phone] MESSAGE: Veronica [phone] re: [id number] Chelsea Tariq. Pt heartrate in 130"s, O2 sats in low 80's on 30L of O2
[2021-02-03] MEDS ORDERED: LORazepam 2 mg/ml vial IV ONE (11:15)
[2021-02-03 14:00] VITALS: BP 121/63
--- NOTE | 2021-02-03 14:36 | NUR ---
F/u 02/03: Pt PO remains steady ~25-50% avg pureed/thin/carb controlled meals w/ 100% now Ensure Enlive TIDWM to optimize protein/kcal intake. Pt PO 50% smoothie yesterday w/ 100% this AM per EMR. Meeting minimum protein needs and partially meeting estimated kcal needs thanks to ONS intake. LBM 02/01 receiving miralax HS. Glu 326mg/dl w/ Lantus held last night for Glu 75mg/dl. Currently up to 30L high flow w/ elevated HR and sats in 80's this AM per EMR. Will continue to monitor for further PO trends and additional protein/kcal needs given respiratory status. Recs: 1. Continue pureed CHO controlled diet; encourage PO intake 2. Consider BSS with ST if pt having difficulty with meals 3. Ensure Enlive TIDWM; encourage PO 4. Smoothie TIDWM; encourage PO 5. Bowel care per rx 6. Scaled wt this admit; subsequent weekly wts 7. DM education deferred until more appropriate Addendum: 02/03/21 at [address] Amended: Links added.
[2021-02-03 18:00] VITALS: BP 94/50
--- NOTE | 2021-02-03 18:00 | NUR ---
PAGER ID: [phone] MESSAGE: Veronica [phone] re: [id number] Kami Tariq. Previous temp 100.4 axillary. Tylenol given. Reassessment temp is 100.6 axillary.
[2021-02-03] MEDS ORDERED: CefTRIAXone 2gm/D5W 50ml BAG 50 ML IV ONE (18:05)
--- NOTE | 2021-02-03 18:07 | NUR ---
PAGER ID: [phone] MESSAGE: Veronica [phone] re: [id number]. Bp is now 75/44, HR 104, temp 100.6 ax, 89% O2 sat. Do you want to come look at pt?
[2021-02-03] MEDS ORDERED: normal saline 1000ml 1,000 ML IVB ONE (18:10)
[2021-02-03] MEDS ORDERED: ibuprofen 200mg tablet PO ONE (18:10)
--- NOTE | 2021-02-03 18:10 | NUR ---
Patient in room ORTHO 4007. I have received report from VeronicaRN and SofíaRN and had the opportunity to ask questions and assume patient care.
--- NOTE | 2021-02-03 18:35 | NUR ---
I paged Dr. Mittal per nurse's request for a repeat abg and ua; he gave orders for this. I also told him that her cxr was done and he called back and per him it looks about the same. He told me to call a gil or Dr. Stallings if her b/p doesn't correct with the fluids or any concerns regarding the patient.
[2021-02-03 18:58] LABS: ABG BASE EXCESS 6.8 mmol/L (-2.0-2.0); ABG HCO3 32.4 mmol/L (22.0-26.0); ABG OXYGEN SATURATION 96.3 % (94-97); ABG PCO2 (T) 55.4 mmHg (32.0-45.0); ABG PO2 (T) 95.9 mmHg (75.0-100.0); ALLEN'S TEST POSITIVE; FCOHb 0.3 % (0.0-3.9); FMetHb 0.1 % (0.0-1.5); FO2Hb 95.9 % (94-97); PATIENT TEMPERATURE 38.7; TOTAL HEMOGLOBIN 11.2 G/dl (12.0-16.0)
[2021-02-03 19:33] LABS: CLARITY,URINE CLOUDY (Clear); COLOR,URINE YELLOW (Yellow); PROTEIN,URINE NEGATIVE (Neg); UA COLLECTION TYPE NON-SPECIFIED
[2021-02-03 19:34] LABS: GLUCOSE, URINE 100 mg/dl (Neg); KETONES,URINE NEGATIVE (Neg); LEUKOCYTE ESTERASE ,URINE NEGATIVE (Neg); NITRITES, URINE POSITIVE (Neg); OCCULT BLOOD,URINE NEGATIVE (Neg); UROBILINOGEN,URINE 0.2 E.U/dL (0.2-1.0)
[2021-02-03 19:48] LABS: BACTERIA,URINE 4+ /HPF (Neg); MUCUS STRANDS NONE SEEN /LPF (Neg); RBC,URINE NONE SEEN /HPF (0-2); SQUAMOUS EPITHELIAL CELL,UR NONE SEEN /LPF (FEW)
--- NOTE | 2021-02-03 20:15 | NUR ---
Around this time I called a rapid response and also called Dr. Stallings regarding low b/p issues that are coming back now that her one liter fluid bolus is done infusing. She was started on the liter bolus at the beginning of our shift for low b/p's and other tests were done at that time. Dr. Stallings came to her bedside and gave orders. Frequent monitoring is being done regarding her vitals.
[2021-02-03] MEDS ORDERED: normal saline 250ml IV soln 250 ML IV ONE (20:20)
[2021-02-03] MEDS ORDERED: methylPREDNISolone sod succ/PF 40mg inj. IV ONE (20:20)
[2021-02-03] MEDS ORDERED: methylPREDNISolone sod succ/PF 40mg inj. IV SCH (20:24)
[2021-02-03 20:30] VITALS: BP 88/43
[2021-02-03] MEDS: insulin glargine (Lantus) pen - multi-dose SQ SCH (20:52)
[2021-02-03 20:55] LABS: ALANINE AMINOTRANSFERASE 41 U/L (12-78); ALBUMIN 1.9 G/DL (3.4-5.0); ALBUMIN/GLOBULIN RATIO 0.5 (1.1-1.5); ALKALINE PHOSPHATASE 85 IU/L (46-116); ANION GAP 7 (8-16); ASPARTATE AMINO TRANSFERASE 14 U/L (10-37); BILIRUBIN,TOTAL 0.2 MG/DL (0.1-1.0); BLOOD UREA NITROGEN 20 MG/DL (7-18); BUN/CREATININE RATIO 28.2 (6.6-38.0); CALCIUM 8.3 MG/DL (8.5-10.1); CHLORIDE 101 MMOL/L (99-107); CREATININE 0.71 MG/DL (0.40-0.90); GLUCOSE 93 MG/DL (70-104); SODIUM 138 MMOL/L (135-145); TOTAL CARBON DIOXIDE 30.5 MMOL/L (24-32); TOTAL PROTEIN 6.1 G/DL (6.4-8.2); eGFR 83 ML/MIN
[2021-02-03] MEDS: chlorproMAZINE 25mg tablet PO SCH (21:00)
[2021-02-03] MEDS: polyethylene glycol 3350 17gm powd pack PO SCH (21:00)
[2021-02-03] MEDS: amitriptyline 25mg tablet PO SCH (21:00)
[2021-02-03] MEDS: traZODone 50mg tablet PO SCH (21:00)
[2021-02-03] MEDS ORDERED: normal saline 500ml IV soln 500 ML IV ONE (21:45)
--- NOTE | 2021-02-03 21:50 | NUR ---
I called Dr. Stallings regarding pt's continued low b/p dropping down to the 70/40's after the 250 saline bolus was given with the rapid response that we called earlier this evening. He gave me another order, this time for 500 saline bolus. I informed pt's nurse Devora of change and orders. I also informed nursing photographic supervisor of situation.
[2021-02-03 22:00] VITALS: BP 95/44
[2021-02-03] MEDS: normal saline 1000ml 1,000 ML IV SCH (22:15)
--- NOTE | 2021-02-03 22:15 | NUR ---
Dr. Stallings has been called regarding pt. low BP after 500ml of bolus he gave me a order for NS at a 100ml /h and order for [place] protocol A placement for close monitoring of pt. output.We will continue with pt. care
[2021-02-04] VITALS (7 sets, daily range): BP systolic 100–120; BP diastolic 50–63
--- NOTE | 2021-02-04 06:24 | NUR ---
Problems reprioritized. Patient report given, questions answered & plan of care reviewed with STEFANO Dudley.
--- NOTE | 2021-02-04 06:39 | NUR ---
Patient in room ORTHO 4007. I have received report from Devora AGARWAL and had the opportunity to ask questions and assume patient care.
[2021-02-04] MEDS ORDERED: methylPREDNISolone sod succ/PF 40mg inj. IV SCH ×2 (08:00)
--- NOTE | 2021-02-04 08:06 | NUR ---
PAGER ID: [phone] MESSAGE: [phone] Yris positive blood culture aerobic bottle. Gram negative rods. [place] [phone]
[2021-02-04] MEDS: normal saline 1000ml 1,000 ML IV SCH (08:15)
[2021-02-04 08:46] LABS: BASOPHILS % (AUTO) 0.1 % (0-1); EOSINOPHILS % (AUTO) 0.2 % (0-6); HEMATOCRIT 30.2 % (35.0-45.0); HEMOGLOBIN 10.3 g/dl (12.0-16.0); LYMPHOCYTES # (AUTO) 0.5 X10'3 (1.1-4.8); LYMPHOCYTES % (AUTO) 6.3 % (21-51); MEAN CORPUSCULAR HEMOGLOBIN 31.6 PG (27.0-31.0); MEAN CORPUSCULAR HGB CONC 34.3 g/dL (33.0-36.5); MEAN CORPUSCULAR VOLUME 92.1 FL (78-98); MONOCYTES # (AUTO) 0.8 X10'3 (0-0.9); MONOCYTES % (AUTO) 9.1 % (2-12); NEUTROPHILS # (AUTO) 6.9 X10'3 (1.8-7.7); NEUTROPHILS % (AUTO) 84.3 % (42-75); PLATELET COUNT 233 X10'3 (140-440); RED BLOOD COUNT 3.28 X10'6 (4.20-5.60); RED CELL DISTRIBUTION WIDTH 14.3 % (11.5-14.5); WHITE BLOOD COUNT 8.2 X10'3 (4.5-11.0)
[2021-02-04] MEDS: cholecalciferol (vitamin D3) 1,000 unit (25mcg) tablet PO SCH (08:48)
[2021-02-04] MEDS: gabapentin 300mg capsule PO SCH (08:48)
[2021-02-04] MEDS: busPIRone 5mg tablet PO SCH ×2 (08:48→20:16)
[2021-02-04] MEDS: montelukast 10mg tablet PO SCH (08:48)
[2021-02-04] MEDS: buPROPion SR 150mg tablet PO SCH ×2 (08:48→20:16)
[2021-02-04] MEDS: sertraline 50mg tablet PO SCH (08:48)
[2021-02-04] MEDS: aspirin 81mg, enteric-coated 1 TAB TABLET.DR PO SCH (08:48)
[2021-02-04] MEDS: lurasidone 20mg tablet PO SCH (08:49)
[2021-02-04] MEDS: enoxaparin 40mg/0.4ml syringe SUBCUT SCH ×2 (08:49→20:16)
[2021-02-04] MEDS: lactose-reduced food (Ensure Enlive) - 237ml bottle PO SCH ×3 (08:50→18:00)
[2021-02-04 09:08] LABS: ALANINE AMINOTRANSFERASE 39 U/L (12-78); ALBUMIN/GLOBULIN RATIO 0.5 (1.1-1.5); ALKALINE PHOSPHATASE 88 IU/L (46-116); ANION GAP 7 (8-16); ASPARTATE AMINO TRANSFERASE 14 U/L (10-37); BILIRUBIN,TOTAL 0.2 MG/DL (0.1-1.0); BLOOD UREA NITROGEN 15 MG/DL (7-18); BUN/CREATININE RATIO 31.3 (6.6-38.0); C-REACTIVE PROTEIN 9.73 MG/DL (0.0-0.5); CALCIUM 7.9 MG/DL (8.5-10.1); CHLORIDE 103 MMOL/L (99-107); CREATININE 0.48 MG/DL (0.40-0.90); GLUCOSE 161 MG/DL (70-104); POTASSIUM 4.5 MMOL/L (3.5-5.1); SODIUM 138 MMOL/L (135-145); TOTAL CARBON DIOXIDE 27.9 MMOL/L (24-32); TOTAL PROTEIN 6.3 G/DL (6.4-8.2); eGFR > 90 ML/MIN
[2021-02-04] MEDS: insulin Lispro (HumaLOG) vial - multi-dose SQ SCH ×3 (09:42→19:10)
[2021-02-04 10:23] LABS: ABG BASE EXCESS 2.4 mmol/L (-2.0-2.0); ABG HCO3 27.4 mmol/L (22.0-26.0); ABG OXYGEN SATURATION 93.3 % (94-97); ABG PCO2 (T) 44.1 mmHg (32.0-45.0); ABG PO2 (T) 68.3 mmHg (75.0-100.0); ALLEN'S TEST POSITIVE; FCOHb 0.1 % (0.0-3.9); FO2Hb 93.2 % (94-97); RESPIRATORY RATE 10 b/min; TOTAL HEMOGLOBIN 10.9 G/dl (12.0-16.0)
[2021-02-04] MEDS ORDERED: LORazepam 2 mg/ml vial IV ONE (10:50)
--- NOTE | 2021-02-04 10:50 | NUR ---
PAGER ID: [phone] MESSAGE: [phone]- Donald patient is complaining of anxiety however Ativan yesterday I was told made her somulent. Can I get morphine to help with her anxiety and work of breathing? debbi [phone]
[2021-02-04] MEDS: cefepime 2g/NS 100ml ADVANTAGE 100 ML IV SCH ×2 (11:03→20:17)
[2021-02-04] MEDS ORDERED: CefTRIAXone 2gm/D5W 50ml BAG 50 ML IV SCH (17:00)
--- NOTE | 2021-02-04 17:50 | NUR ---
PAGER ID: [phone] MESSAGE: [phone], [facility] lab just called and told me that her blood cultures in the anerobic bottle are showing gram negative rods and gram positive cocci in clusters. debbi [id number]
--- NOTE | 2021-02-04 18:18 | NUR ---
Problems reprioritized. Patient report given, questions answered & plan of care reviewed with Kiley AGARWAL.
--- NOTE | 2021-02-04 18:35 | NUR ---
Patient in room ORTHO 4007. I have received report from Octavia AGARWAL and had the opportunity to ask questions and assume patient care.
[2021-02-04] MEDS: traZODone 50mg tablet PO SCH (20:16)
[2021-02-04] MEDS: amitriptyline 25mg tablet PO SCH (20:16)
[2021-02-04] MEDS: chlorproMAZINE 25mg tablet PO SCH (20:17)
[2021-02-04] MEDS: lactobacillus rhamnosus 10,000 MMU CELLS/CAPSULE PO SCH (20:17)
[2021-02-04] MEDS: HYDROcodone/acetaminophen 5mg/325mg tablet PO PRN (20:17)
[2021-02-04] MEDS: polyethylene glycol 3350 17gm powd pack PO SCH (20:18)
[2021-02-04] MEDS: LORazepam 0.5 MG tablet PO PRN (21:20)
[2021-02-04] MEDS: insulin glargine (Lantus) pen - multi-dose SQ SCH (21:30)
[2021-02-05] VITALS (8 sets, daily range): BP systolic 81–132; BP diastolic 27–69
[2021-02-05] MEDS ORDERED: normal saline 250ml IV soln 250 ML IV ONE (01:40)
--- NOTE | 2021-02-05 02:36 | NUR ---
MD called for low BP 81/43. Nursing bolus given and new order for NS 100/hr.
[2021-02-05] MEDS: normal saline 1000ml 1,000 ML IV SCH ×3 (02:39→20:40)
--- NOTE | 2021-02-05 06:39 | NUR ---
Problems reprioritized. Patient report given, questions answered & plan of care reviewed with Sharee AGARWAL.
[2021-02-05 07:58] LABS: BASOPHILS % (AUTO) 0.3 % (0-1); EOSINOPHILS # (AUTO) 0.1 X10'3 (0-0.9); EOSINOPHILS % (AUTO) 1.4 % (0-6); HEMATOCRIT 28.9 % (35.0-45.0); HEMOGLOBIN 9.8 g/dl (12.0-16.0); LYMPHOCYTES # (AUTO) 0.7 X10'3 (1.1-4.8); LYMPHOCYTES % (AUTO) 8.4 % (21-51); MEAN CORPUSCULAR HEMOGLOBIN 31.1 PG (27.0-31.0); MEAN CORPUSCULAR HGB CONC 33.8 g/dL (33.0-36.5); MEAN CORPUSCULAR VOLUME 91.9 FL (78-98); MEAN PLATELET VOLUME 8.8 FL (7.4-10.4); MONOCYTES # (AUTO) 0.9 X10'3 (0-0.9); MONOCYTES % (AUTO) 10.2 % (2-12); NEUTROPHILS # (AUTO) 6.7 X10'3 (1.8-7.7); NEUTROPHILS % (AUTO) 79.7 % (42-75); PLATELET COUNT 201 X10'3 (140-440); RED BLOOD COUNT 3.15 X10'6 (4.20-5.60); RED CELL DISTRIBUTION WIDTH 14.5 % (11.5-14.5); WHITE BLOOD COUNT 8.4 X10'3 (4.5-11.0)
[2021-02-05] MEDS ORDERED: methylPREDNISolone sod succ/PF 40mg inj. IV SCH (08:00)
[2021-02-05 08:04] LABS: D-DIMER 1.36 MG/L FEU (0-0.50)
[2021-02-05 08:10] LABS: ALANINE AMINOTRANSFERASE 38 U/L (12-78); ALBUMIN 1.9 G/DL (3.4-5.0); ALBUMIN/GLOBULIN RATIO 0.5 (1.1-1.5); ALKALINE PHOSPHATASE 108 IU/L (46-116); ANION GAP 6 (8-16); ASPARTATE AMINO TRANSFERASE 20 U/L (10-37); BILIRUBIN,TOTAL 0.2 MG/DL (0.1-1.0); BLOOD UREA NITROGEN 20 MG/DL (7-18); BUN/CREATININE RATIO 33.3 (6.6-38.0); C-REACTIVE PROTEIN 7.44 MG/DL (0.0-0.5); CALCIUM 8.1 MG/DL (8.5-10.1); CHLORIDE 102 MMOL/L (99-107); GLUCOSE 203 MG/DL (70-104); POTASSIUM 4.2 MMOL/L (3.5-5.1); SODIUM 137 MMOL/L (135-145); TOTAL CARBON DIOXIDE 28.6 MMOL/L (24-32); TOTAL PROTEIN 6.1 G/DL (6.4-8.2); eGFR > 90 ML/MIN
[2021-02-05] MEDS: insulin Lispro (HumaLOG) vial - multi-dose SQ SCH ×3 (08:28→18:45)
[2021-02-05] MEDS: enoxaparin 40mg/0.4ml syringe SUBCUT SCH ×2 (08:29→20:39)
[2021-02-05] MEDS: gabapentin 300mg capsule PO SCH (08:30)
[2021-02-05] MEDS: sertraline 50mg tablet PO SCH (08:30)
[2021-02-05] MEDS: lurasidone 20mg tablet PO SCH (08:30)
[2021-02-05] MEDS: busPIRone 5mg tablet PO SCH ×2 (08:30→20:40)
[2021-02-05] MEDS: montelukast 10mg tablet PO SCH (08:30)
[2021-02-05] MEDS: lactobacillus rhamnosus 10,000 MMU CELLS/CAPSULE PO SCH ×2 (08:30→20:39)
[2021-02-05] MEDS: LORazepam 0.5 MG tablet PO PRN ×2 (08:30→20:39)
[2021-02-05] MEDS: aspirin 81mg, enteric-coated 1 TAB TABLET.DR PO SCH (08:31)
[2021-02-05] MEDS: lactose-reduced food (Ensure Enlive) - 237ml bottle PO SCH ×3 (08:31→18:00)
[2021-02-05] MEDS: buPROPion SR 150mg tablet PO SCH ×2 (08:31→20:39)
[2021-02-05] MEDS: cholecalciferol (vitamin D3) 1,000 unit (25mcg) tablet PO SCH (08:31)
[2021-02-05] MEDS: cefepime 2g/NS 100ml ADVANTAGE 100 ML IV SCH ×2 (10:11→20:39)
[2021-02-05] MEDS: insulin glargine (Lantus) pen - multi-dose SQ SCH (20:37)
[2021-02-05] MEDS: amitriptyline 25mg tablet PO SCH (20:39)
[2021-02-05] MEDS: traZODone 50mg tablet PO SCH (20:39)
[2021-02-05] MEDS: HYDROcodone/acetaminophen 5mg/325mg tablet PO PRN (20:40)
[2021-02-05] MEDS: chlorproMAZINE 25mg tablet PO SCH (20:40)
[2021-02-05] MEDS: polyethylene glycol 3350 17gm powd pack PO SCH (21:00)
[2021-02-06 02:00] VITALS: BP 125/57
[2021-02-06 06:00] VITALS: BP 123/63
[2021-02-06] MEDS: lactose-reduced food (Ensure Enlive) - 237ml bottle PO SCH ×3 (08:00→18:00)
[2021-02-06] MEDS: normal saline 1000ml 1,000 ML IV SCH ×2 (08:35→21:12)
[2021-02-06 08:41] LABS: ALANINE AMINOTRANSFERASE 35 U/L (12-78); ALBUMIN/GLOBULIN RATIO 0.4 (1.1-1.5); ALKALINE PHOSPHATASE 96 IU/L (46-116); ANION GAP 8 (8-16); ASPARTATE AMINO TRANSFERASE 14 U/L (10-37); BILIRUBIN,TOTAL 0.4 MG/DL (0.1-1.0); BLOOD UREA NITROGEN 13 MG/DL (7-18); BUN/CREATININE RATIO 25.5 (6.6-38.0); C-REACTIVE PROTEIN 8.38 MG/DL (0.0-0.5); CALCIUM 8.1 MG/DL (8.5-10.1); CHLORIDE 101 MMOL/L (99-107); CREATININE 0.51 MG/DL (0.40-0.90); GLUCOSE 128 MG/DL (70-104); SODIUM 137 MMOL/L (135-145); TOTAL CARBON DIOXIDE 28.5 MMOL/L (24-32); TOTAL PROTEIN 6.6 G/DL (6.4-8.2); eGFR > 90 ML/MIN
[2021-02-06 08:51] LABS: BASOPHILS % (AUTO) 0.4 % (0-1); EOSINOPHILS # (AUTO) 0.2 X10'3 (0-0.9); HEMOGLOBIN 10.3 g/dl (12.0-16.0); LYMPHOCYTES # (AUTO) 1.2 X10'3 (1.1-4.8); LYMPHOCYTES % (AUTO) 15.9 % (21-51); MEAN CORPUSCULAR HEMOGLOBIN 31.2 PG (27.0-31.0); MEAN CORPUSCULAR HGB CONC 34.3 g/dL (33.0-36.5); MEAN CORPUSCULAR VOLUME 90.8 FL (78-98); MONOCYTES # (AUTO) 1.1 X10'3 (0-0.9); MONOCYTES % (AUTO) 14.8 % (2-12); NEUTROPHILS # (AUTO) 5.1 X10'3 (1.8-7.7); NEUTROPHILS % (AUTO) 65.9 % (42-75); PLATELET COUNT 219 X10'3 (140-440); RED CELL DISTRIBUTION WIDTH 14.2 % (11.5-14.5); WHITE BLOOD COUNT 7.7 X10'3 (4.5-11.0)
[2021-02-06 09:04] LABS: D-DIMER 1.82 MG/L FEU (0-0.50)
[2021-02-06 10:00] VITALS: BP 140/87
[2021-02-06] MEDS: buPROPion SR 150mg tablet PO SCH ×2 (11:54→21:11)
[2021-02-06] MEDS: enoxaparin 40mg/0.4ml syringe SUBCUT SCH ×2 (11:54→21:11)
[2021-02-06] MEDS: cefepime 2g/NS 100ml ADVANTAGE 100 ML IV SCH ×2 (11:54→21:11)
[2021-02-06] MEDS: lactobacillus rhamnosus 10,000 MMU CELLS/CAPSULE PO SCH ×2 (11:55→21:11)
[2021-02-06] MEDS: lurasidone 20mg tablet PO SCH (11:55)
[2021-02-06] MEDS: cholecalciferol (vitamin D3) 1,000 unit (25mcg) tablet PO SCH (11:55)
[2021-02-06] MEDS: sertraline 50mg tablet PO SCH (11:55)
[2021-02-06] MEDS: montelukast 10mg tablet PO SCH (11:55)
[2021-02-06] MEDS: gabapentin 300mg capsule PO SCH (11:55)
[2021-02-06] MEDS: aspirin 81mg, enteric-coated 1 TAB TABLET.DR PO SCH (11:55)
[2021-02-06] MEDS: busPIRone 5mg tablet PO SCH ×2 (11:56→21:11)
[2021-02-06 14:00] VITALS: BP 144/87
[2021-02-06] MEDS: insulin Lispro (HumaLOG) vial - multi-dose SQ SCH ×2 (14:13→18:55)
[2021-02-06 18:00] VITALS: BP 131/73
[2021-02-06] MEDS: polyethylene glycol 3350 17gm powd pack PO SCH (21:00)
[2021-02-06] MEDS: insulin glargine (Lantus) pen - multi-dose SQ SCH (21:06)
[2021-02-06] MEDS: amitriptyline 25mg tablet PO SCH (21:11)
[2021-02-06] MEDS: chlorproMAZINE 25mg tablet PO SCH (21:11)
[2021-02-06] MEDS: traZODone 50mg tablet PO SCH (21:11)
[2021-02-06 22:00] VITALS: BP 142/72
[2021-02-07 02:00] VITALS: BP 104/53
[2021-02-07] MEDS: normal saline 1000ml 1,000 ML IV SCH ×2 (04:35→14:35)
[2021-02-07 06:00] VITALS: BP 107/58
[2021-02-07 06:58] LABS: BASOPHILS % (AUTO) 0.6 % (0-1); EOSINOPHILS # (AUTO) 0.2 X10'3 (0-0.9); EOSINOPHILS % (AUTO) 3.1 % (0-6); HEMATOCRIT 30.2 % (35.0-45.0); HEMOGLOBIN 10.1 g/dl (12.0-16.0); LYMPHOCYTES # (AUTO) 1.1 X10'3 (1.1-4.8); LYMPHOCYTES % (AUTO) 14.6 % (21-51); MEAN CORPUSCULAR HEMOGLOBIN 30.8 PG (27.0-31.0); MEAN CORPUSCULAR HGB CONC 33.4 g/dL (33.0-36.5); MEAN CORPUSCULAR VOLUME 92.3 FL (78-98); MEAN PLATELET VOLUME 8.8 FL (7.4-10.4); MONOCYTES % (AUTO) 13.2 % (2-12); NEUTROPHILS # (AUTO) 5.3 X10'3 (1.8-7.7); NEUTROPHILS % (AUTO) 68.5 % (42-75); PLATELET COUNT 225 X10'3 (140-440); RED BLOOD COUNT 3.27 X10'6 (4.20-5.60); WHITE BLOOD COUNT 7.7 X10'3 (4.5-11.0)
[2021-02-07 07:08] LABS: D-DIMER 0.79 MG/L FEU (0-0.50)
[2021-02-07 07:28] LABS: ALANINE AMINOTRANSFERASE 33 U/L (12-78); ALBUMIN/GLOBULIN RATIO 0.4 (1.1-1.5); ALKALINE PHOSPHATASE 89 IU/L (46-116); ANION GAP 8 (8-16); ASPARTATE AMINO TRANSFERASE 18 U/L (10-37); BILIRUBIN,TOTAL 0.3 MG/DL (0.1-1.0); BLOOD UREA NITROGEN 10 MG/DL (7-18); CALCIUM 8.7 MG/DL (8.5-10.1); CHLORIDE 102 MMOL/L (99-107); GLUCOSE 102 MG/DL (70-104); POTASSIUM 3.9 MMOL/L (3.5-5.1); SODIUM 139 MMOL/L (135-145); TOTAL CARBON DIOXIDE 29.5 MMOL/L (24-32); TOTAL PROTEIN 6.7 G/DL (6.4-8.2); eGFR > 90 ML/MIN
[2021-02-07 07:30] LABS: C-REACTIVE PROTEIN 10.72 MG/DL (0.0-0.5)
[2021-02-07] MEDS: lactose-reduced food (Ensure Enlive) - 237ml bottle PO SCH ×3 (08:00→18:00)
[2021-02-07] MEDS: methylPREDNISolone sod succ/PF 40mg inj. IV SCH (09:39)
[2021-02-07] MEDS: lurasidone 20mg tablet PO SCH (09:39)
[2021-02-07] MEDS: montelukast 10mg tablet PO SCH (09:39)
[2021-02-07] MEDS: sertraline 50mg tablet PO SCH (09:40)
[2021-02-07] MEDS: cholecalciferol (vitamin D3) 1,000 unit (25mcg) tablet PO SCH (09:40)
[2021-02-07] MEDS: lactobacillus rhamnosus 10,000 MMU CELLS/CAPSULE PO SCH ×2 (09:40→21:40)
[2021-02-07] MEDS: buPROPion SR 150mg tablet PO SCH ×2 (09:40→21:40)
[2021-02-07] MEDS: aspirin 81mg, enteric-coated 1 TAB TABLET.DR PO SCH (09:40)
[2021-02-07] MEDS: busPIRone 5mg tablet PO SCH ×2 (09:41→21:41)
[2021-02-07] MEDS: insulin Lispro (HumaLOG) vial - multi-dose SQ SCH ×3 (09:42→19:11)
[2021-02-07] MEDS: gabapentin 300mg capsule PO SCH (09:43)
[2021-02-07] MEDS: enoxaparin 40mg/0.4ml syringe SUBCUT SCH ×2 (09:43→21:40)
[2021-02-07] MEDS: cefepime 2g/NS 100ml ADVANTAGE 100 ML IV SCH ×2 (09:44→21:39)
--- NOTE | 2021-02-07 13:44 | NUR ---
F/u 02/07: Pt PO remains consistent ~25-50% avg meals w/ 100% Ensure Enlive TIDWM partially meeting needs. RN reports pt does not like smoothies; dietary notified of preference. [place] d/w RN regarding BUSBOY BSS since on pureed foods and edentulous; RN agrees BUSBOY BSS may assist w/ PO intake if diet was advances. RD notified MD of recommendation for BUSBOY BSS. LB 02/06. Will continue to monitor. Recs: 1. Continue pureed CHO controlled diet; advance texture per BUSBOY recs; encourage PO intake 2. Ensure Enlive TIDWM; encourage PO 3. Bowel care per rx 4. Scaled wt this admit; subsequent weekly wts Addendum: 02/07/21 at [address] Amended: Links added.
--- NOTE | 2021-02-07 14:29 | NUR ---
PAGER ID: [phone] MESSAGE: [phone] Marciano saline nasal spray? stuffed up [phone] CB
[2021-02-07] MEDS ORDERED: salt irrigation nasal spray 45 ML SPRAY NS PRN (14:40)
[2021-02-07] MEDS: acetaminophen 325mg tablet PO PRN ×2 (14:48→21:40)
[2021-02-07] MEDS: LORazepam 0.5 MG tablet PO PRN ×2 (14:48→21:40)
[2021-02-07 18:00] VITALS: BP_SYST 106; BP_SYST 135; BP_DIAS 53; BP_DIAS 80
[2021-02-07] MEDS: polyethylene glycol 3350 17gm powd pack PO SCH (21:00)
[2021-02-07] MEDS: insulin glargine (Lantus) pen - multi-dose SQ SCH (21:38)
[2021-02-07] MEDS: chlorproMAZINE 25mg tablet PO SCH (21:39)
[2021-02-07] MEDS: amitriptyline 25mg tablet PO SCH (21:40)
[2021-02-07] MEDS: traZODone 50mg tablet PO SCH (21:40)
[2021-02-07 22:00] VITALS: BP 135/80
[2021-02-08] MEDS: normal saline 1000ml 1,000 ML IV SCH (00:59)
[2021-02-08 02:00] VITALS: BP 118/65
[2021-02-08 06:23] VITALS: BP 116/65
--- NOTE | 2021-02-08 06:23 | NUR ---
Patient in room ORTHO 4007. I have received report from Elza AGARWAL and had the opportunity to ask questions and assume patient care.
[2021-02-08] MEDS: sertraline 50mg tablet PO SCH (07:10)
[2021-02-08] MEDS: buPROPion SR 150mg tablet PO SCH ×2 (07:10→18:42)
[2021-02-08] MEDS: lactobacillus rhamnosus 10,000 MMU CELLS/CAPSULE PO SCH ×2 (07:10→18:41)
[2021-02-08] MEDS: montelukast 10mg tablet PO SCH (07:10)
[2021-02-08] MEDS: busPIRone 5mg tablet PO SCH ×2 (07:10→18:40)
[2021-02-08] MEDS: cholecalciferol (vitamin D3) 1,000 unit (25mcg) tablet PO SCH (07:10)
[2021-02-08] MEDS: aspirin 81mg, enteric-coated 1 TAB TABLET.DR PO SCH (07:10)
[2021-02-08] MEDS: gabapentin 300mg capsule PO SCH (07:10)
[2021-02-08] MEDS: enoxaparin 40mg/0.4ml syringe SUBCUT SCH ×2 (07:11→20:00)
[2021-02-08] MEDS: methylPREDNISolone sod succ/PF 40mg inj. IV SCH ×2 (07:11→19:10)
--- NOTE | 2021-02-08 07:38 | NUR ---
PAGER ID: [phone] MESSAGE: [phone] Nanette. Patient is having a hard time breathing this morning, somulent was hypoglycemix dextrose given. Can I get an ABG and chest xray? debbi [phone]
[2021-02-08] MEDS: CEFEPIME 2gm in D5W 50mL 50 ML IV SCH ×2 (07:58→19:10)
[2021-02-08] MEDS: lurasidone 20mg tablet PO SCH (08:00)
[2021-02-08] MEDS: lactose-reduced food (Ensure Enlive) - 237ml bottle PO SCH ×3 (08:00→18:00)
--- NOTE | 2021-02-08 08:10 | NUR ---
Upon entering patients room to check blood sugar she was noticeably somulent. Blood sugar was 65, dextrose given and recheck of blood sugar was 128. Patient was having a hard time breathing especially on exhalation and mentation is not what it has been in the past for this nurse. Patient had a problem with c02 retention last time i cared for her and needed to be on bipap briefly to help with this. Placed page to Dr. Saab for abg and chest x-ray for patient. Patient was placed on bipap, ABG being drawn now and chest x-ray done.
[2021-02-08 08:20] LABS: ABG BASE EXCESS 1.3 mmol/L (-2.0-2.0); ABG OXYGEN SATURATION 93.5 % (94-97); ABG PCO2 (T) 48.1 mmHg (32.0-45.0); ABG PO2 (T) 76.4 mmHg (75.0-100.0); ALLEN'S TEST POSITIVE; FCOHb 0.3 % (0.0-3.9); FO2Hb 93.2 % (94-97); PATIENT TEMPERATURE 37.2; RESPIRATORY RATE 10 b/min; TOTAL HEMOGLOBIN 10.6 G/dl (12.0-16.0)
[2021-02-08 08:34] LABS: BASOPHILS % (AUTO) 0.4 % (0-1); EOSINOPHILS # (AUTO) 0.4 X10'3 (0-0.9); EOSINOPHILS % (AUTO) 3.5 % (0-6); HEMATOCRIT 28.6 % (35.0-45.0); HEMOGLOBIN 9.5 g/dl (12.0-16.0); LYMPHOCYTES # (AUTO) 1.2 X10'3 (1.1-4.8); LYMPHOCYTES % (AUTO) 11.2 % (21-51); MEAN CORPUSCULAR HEMOGLOBIN 30.8 PG (27.0-31.0); MEAN CORPUSCULAR HGB CONC 33.1 g/dL (33.0-36.5); MEAN PLATELET VOLUME 8.9 FL (7.4-10.4); MONOCYTES # (AUTO) 1.3 X10'3 (0-0.9); MONOCYTES % (AUTO) 12.6 % (2-12); NEUTROPHILS # (AUTO) 7.7 X10'3 (1.8-7.7); NEUTROPHILS % (AUTO) 72.3 % (42-75); PLATELET COUNT 262 X10'3 (140-440); RED BLOOD COUNT 3.08 X10'6 (4.20-5.60); RED CELL DISTRIBUTION WIDTH 14.4 % (11.5-14.5); WHITE BLOOD COUNT 10.6 X10'3 (4.5-11.0)
[2021-02-08 09:21] LABS: ALANINE AMINOTRANSFERASE 32 U/L (12-78); ALBUMIN 1.9 G/DL (3.4-5.0); ALBUMIN/GLOBULIN RATIO 0.4 (1.1-1.5); ALKALINE PHOSPHATASE 77 IU/L (46-116); ANION GAP 9 (8-16); ASPARTATE AMINO TRANSFERASE 22 U/L (10-37); BILIRUBIN,TOTAL 0.2 MG/DL (0.1-1.0); BLOOD UREA NITROGEN 16 MG/DL (7-18); BUN/CREATININE RATIO 34.8 (6.6-38.0); C-REACTIVE PROTEIN 8.49 MG/DL (0.0-0.5); CALCIUM 7.7 MG/DL (8.5-10.1); CHLORIDE 106 MMOL/L (99-107); CREATININE 0.46 MG/DL (0.40-0.90); GLUCOSE 53 MG/DL (70-104); POTASSIUM 4.2 MMOL/L (3.5-5.1); SODIUM 144 MMOL/L (135-145); TOTAL CARBON DIOXIDE 29.3 MMOL/L (24-32); TOTAL PROTEIN 6.3 G/DL (6.4-8.2); eGFR > 90 ML/MIN
--- NOTE | 2021-02-08 09:47 | NUR ---
PAGER ID: [phone] MESSAGE: [phone] patient is not tolerating bipap, is anxious and trying to breathe over the mask. Can I get some Ativan for her? debbi [phone]
[2021-02-08 09:48] LABS: D-DIMER 0.91 MG/L FEU (0-0.50)
[2021-02-08 10:00] VITALS: BP 129/65
--- NOTE | 2021-02-08 10:39 | NUR ---
Patient transitioned back to high flow salter and non rebreather. Patient is pale, anxious and just not appearing how she did to me when i took care of her last. Respiratory therapist concerned about patient and advised to keep a close eye on her.
--- NOTE | 2021-02-08 11:14 | NUR ---
PAGER ID: [phone] MESSAGE: [phone] Nanette, patient is not doing well, I had Dr. Vargas look at her while he was up here. Reccomends patient be on bipap and if she doesn't tolerate then transfer to ICU. She told resp therapist she does not want intubation. debbi [phone]
--- NOTE | 2021-02-08 11:28 | NUR ---
PAGER ID: [phone] MESSAGE: [phone] Yris son is requesting to speak to you. Lakhwinder [phone]. Patient does not want intubation and is not doing well and is a full code. Octavia 8840
[2021-02-08] MEDS: nystatin 15 GM powder TP SCH ×2 (14:35→21:14)
[2021-02-08] MEDS ORDERED: ipratropium/albuterol 3ml nebule NEB PRN (15:35)
--- NOTE | 2021-02-08 17:43 | NUR ---
Patient is accumulating thick sputum in her throat and not able to excrete it. Suctioned with yaunker, thick green/red/matta sputum suctioned out of oropharynx. Due to this and patient decreased loc and trouble swallowing earlier today I made her NPO and put in orders for speech therapy eval and treat.
--- NOTE | 2021-02-08 17:46 | NUR ---
IV fluids stopped per jayson cosme md
--- NOTE | 2021-02-08 18:31 | NUR ---
Problems reprioritized. Patient report given, questions answered & plan of care reviewed with Rochelle AGARWAL.
[2021-02-08] MEDS: traZODone 50mg tablet PO SCH (18:42)
[2021-02-08] MEDS: amitriptyline 25mg tablet PO SCH (18:43)
[2021-02-08] MEDS: polyethylene glycol 3350 17gm powd pack PO SCH (18:44)
[2021-02-08] MEDS: chlorproMAZINE 25mg tablet PO SCH (18:44)
[2021-02-08] MEDS: ipratropium/albuterol 3ml nebule NEB SCH (19:00)
[2021-02-08] MEDS: LORazepam 2 mg/ml vial IV PRN ×2 (19:10→22:57)
[2021-02-08] MEDS: insulin glargine (Lantus) pen - multi-dose SQ SCH (21:00)
[2021-02-08 22:00] VITALS: BP 143/73
--- NOTE | 2021-02-09 01:23 | NUR ---
Pt has become increasingly agitated and has taken off the Bipap mask several times and started to cry and when placing it back she says no and gestures she does not want it on. Pt also was not able to take any of her evening medications as she was placed NPO due to being an aspiration risk.
--- NOTE | 2021-02-09 01:38 | NUR ---
Paged RT to come assess pt and mask fit. Pt continues to take it off and is having a hard time handling her secretions.
[2021-02-09 02:00] VITALS: BP 163/78
[2021-02-09] MEDS: LORazepam 2 mg/ml vial IV PRN ×4 (03:28→19:34)
[2021-02-09] MEDS: methylPREDNISolone sod succ/PF 40mg inj. IV SCH ×4 (03:28→19:33)
--- NOTE | 2021-02-09 06:20 | NUR ---
Patient in room ORTHO 4007. I have received report from Kiley AGARWAL and had the opportunity to ask questions and assume patient care. Addendum: 02/09/21 at 0621 by Octavia Little RN Gayathri AGARWAL
--- NOTE | 2021-02-09 06:22 | NUR ---
Problems reprioritized. Patient report given, questions answered & plan of care reviewed with Taylor AGARWAL.
[2021-02-09 06:41] VITALS: BP 149/82
[2021-02-09] MEDS: enoxaparin 40mg/0.4ml syringe SUBCUT SCH ×2 (06:58→19:34)
[2021-02-09] MEDS: CEFEPIME 2gm in D5W 50mL 50 ML IV SCH ×2 (06:58→19:33)
[2021-02-09] MEDS: ipratropium/albuterol 3ml nebule NEB SCH (07:00)
[2021-02-09] MEDS: sertraline 50mg tablet PO SCH (08:00)
[2021-02-09] MEDS: lactose-reduced food (Ensure Enlive) - 237ml bottle PO SCH ×3 (08:00→18:00)
[2021-02-09] MEDS: aspirin 81mg, enteric-coated 1 TAB TABLET.DR PO SCH (08:00)
[2021-02-09] MEDS: lactobacillus rhamnosus 10,000 MMU CELLS/CAPSULE PO SCH ×2 (08:00→18:33)
[2021-02-09] MEDS: gabapentin 300mg capsule PO SCH (08:00)
[2021-02-09] MEDS: busPIRone 5mg tablet PO SCH ×2 (08:00→18:33)
[2021-02-09] MEDS: lurasidone 20mg tablet PO SCH (08:00)
[2021-02-09] MEDS: cholecalciferol (vitamin D3) 1,000 unit (25mcg) tablet PO SCH (08:00)
[2021-02-09] MEDS: buPROPion SR 150mg tablet PO SCH ×2 (08:00→18:33)
[2021-02-09] MEDS: montelukast 10mg tablet PO SCH (08:00)
[2021-02-09] MEDS ORDERED: methylPREDNISolone sod succ/PF 40mg inj. IV SCH (08:00)
[2021-02-09 09:00] LABS: BASOPHILS % (AUTO) 0.3 % (0-1); EOSINOPHILS # (AUTO) 0.2 X10'3 (0-0.9); EOSINOPHILS % (AUTO) 1.8 % (0-6); HEMATOCRIT 30.3 % (35.0-45.0); HEMOGLOBIN 10.3 g/dl (12.0-16.0); LYMPHOCYTES # (AUTO) 0.7 X10'3 (1.1-4.8); LYMPHOCYTES % (AUTO) 7.3 % (21-51); MEAN PLATELET VOLUME 8.4 FL (7.4-10.4); MONOCYTES # (AUTO) 0.9 X10'3 (0-0.9); MONOCYTES % (AUTO) 9.8 % (2-12); NEUTROPHILS # (AUTO) 7.7 X10'3 (1.8-7.7); NEUTROPHILS % (AUTO) 80.8 % (42-75); PLATELET COUNT 319 X10'3 (140-440); RED BLOOD COUNT 3.33 X10'6 (4.20-5.60); RED CELL DISTRIBUTION WIDTH 14.1 % (11.5-14.5); WHITE BLOOD COUNT 9.5 X10'3 (4.5-11.0)
--- NOTE | 2021-02-09 09:18 | NUR ---
PAGER ID: [phone] MESSAGE: [phone] son is down in the lobby wanting to speak to the physician regarding his mother and intubation. Patient stated yesterday that she does not want to be intubated and family wants it if necessary. Octavia [phone]
[2021-02-09 09:28] LABS: D-DIMER 0.74 MG/L FEU (0-0.50)
[2021-02-09 09:29] LABS: ALANINE AMINOTRANSFERASE 30 U/L (12-78); ALBUMIN 2.1 G/DL (3.4-5.0); ALBUMIN/GLOBULIN RATIO 0.4 (1.1-1.5); ALKALINE PHOSPHATASE 83 IU/L (46-116); ANION GAP 6 (8-16); ASPARTATE AMINO TRANSFERASE 23 U/L (10-37); BILIRUBIN,TOTAL 0.5 MG/DL (0.1-1.0); BLOOD UREA NITROGEN 14 MG/DL (7-18); BUN/CREATININE RATIO 32.6 (6.6-38.0); CALCIUM 8.4 MG/DL (8.5-10.1); CHLORIDE 99 MMOL/L (99-107); CREATININE 0.43 MG/DL (0.40-0.90); GLUCOSE 145 MG/DL (70-104); SODIUM 134 MMOL/L (135-145); TOTAL CARBON DIOXIDE 29.1 MMOL/L (24-32); eGFR > 90 ML/MIN
[2021-02-09 09:35] LABS: POTASSIUM 4.3 MMOL/L (3.5-5.1)
--- NOTE | 2021-02-09 09:38 | NUR ---
This RN spoke with Kerwin Hernandez RN in infection control and he stated that patients son Lakhwinder is okay to visit to discuss code status with MD.
--- NOTE | 2021-02-09 09:41 | NUR ---
PAGER ID: [phone] MESSAGE: [phone] Yris per infection control son is okay to visit to discuss code status, if this can be arranged I can call him and tell him when to be here. Octavia [phone]
[2021-02-09 10:12] VITALS: BP 142/71
--- NOTE | 2021-02-09 11:50 | NUR ---
Per hospitalist intubation and code status does not need to be discussed at this time with certified endoscopy technician nor family due to the fact that she is not nearing intubation at this time.
--- NOTE | 2021-02-09 11:51 | NUR ---
Patient is frequently removing high flow nasal cannula, also having difficulty clearing secretions. She was made NPO by speech therapy due to aspiration risk. Frequently assisting patient with suctioning and oral care. Discussed with hospitalist, all meds to be changed to IV that can be changed to IV. Pharmacy aware.
--- NOTE | 2021-02-09 12:23 | NUR ---
PAGER ID: [phone] MESSAGE: [phone] Yris per pharmacy Wellbutrin, Zoloft, trazadone and buspar do not have iv forms. Octavia [phone]
[2021-02-09] MEDS: insulin Lispro (HumaLOG) vial - multi-dose SQ SCH ×2 (13:13→17:08)
[2021-02-09] MEDS: nystatin 15 GM powder TP SCH ×2 (13:22→21:00)
--- NOTE | 2021-02-09 15:54 | NUR ---
PAGER ID: [phone] MESSAGE: [phone] ganga, can i get sitter orders? patient is pulling off oxygen constantly.
[2021-02-09] MEDS: dextrose 5%-normal saline 1,000 ML IV SCH (15:57)
[2021-02-09 16:17] VITALS: BP 115/60
--- NOTE | 2021-02-09 16:42 | NUR ---
Patient is NPO due to unsafe swallow and aspiration precautions. Discussed with MD regarding patients wellbutrin, buspar, zoloft and trazadone, MD advised to speak to pharmacy to get medications changed to IV. Per pharmacist there is no iv equivalents of any these drugs advised for feeding tube. MD made aware no change in orders
[2021-02-09 18:00] VITALS: BP 111/64
--- NOTE | 2021-02-09 18:22 | NUR ---
Problems reprioritized. Patient report given, questions answered & plan of care reviewed with Rochelle AGARWAL.
[2021-02-09] MEDS: traZODone 50mg tablet PO SCH (18:33)
[2021-02-09] MEDS: chlorproMAZINE 25mg tablet PO SCH (18:34)
[2021-02-09] MEDS: amitriptyline 25mg tablet PO SCH (18:34)
[2021-02-09] MEDS: polyethylene glycol 3350 17gm powd pack PO SCH (18:35)
[2021-02-09] MEDS: insulin glargine (Lantus) pen - multi-dose SQ SCH (21:00)
[2021-02-09 22:00] VITALS: BP 119/66
[2021-02-10 02:00] VITALS: BP 125/80
[2021-02-10] MEDS: methylPREDNISolone sod succ/PF 40mg inj. IV SCH ×4 (02:05→20:59)
--- NOTE | 2021-02-10 02:22 | NUR ---
Pt's blood sugar was [address] Stallings and he said not to administer insulin tonight
[2021-02-10] MEDS: dextrose 5%-normal saline 1,000 ML IV SCH ×3 (04:47→22:16)
--- NOTE | 2021-02-10 06:17 | NUR ---
Problems reprioritized. Patient report given, questions answered & plan of care reviewed with Taylor AGARWAL.
--- NOTE | 2021-02-10 06:18 | NUR ---
Patient in room ORTHO 4007. I have received report from Rochelle AGARWAL and had the opportunity to ask questions and assume patient care.
[2021-02-10 06:24] VITALS: BP 132/71
[2021-02-10] MEDS: CEFEPIME 2gm in D5W 50mL 50 ML IV SCH ×2 (06:46→20:59)
[2021-02-10] MEDS: enoxaparin 40mg/0.4ml syringe SUBCUT SCH ×2 (06:46→20:59)
[2021-02-10] MEDS: lactose-reduced food (Ensure Enlive) - 237ml bottle PO SCH ×3 (08:00→18:00)
[2021-02-10] MEDS: buPROPion 100mg tablet PO SCH ×3 (08:03→20:58)
[2021-02-10] MEDS: aspirin 81mg tab.chew PO SCH (08:03)
[2021-02-10] MEDS: busPIRone 5mg tablet PO SCH ×2 (08:03→20:59)
[2021-02-10] MEDS: gabapentin 300mg capsule PO SCH (08:04)
[2021-02-10] MEDS: cholecalciferol (vitamin D3) 1,000 unit (25mcg) tablet PO SCH (08:04)
[2021-02-10] MEDS: lactobacillus rhamnosus 10,000 MMU CELLS/CAPSULE PO SCH ×2 (08:04→20:58)
[2021-02-10] MEDS: sertraline 50mg tablet PO SCH (08:04)
[2021-02-10] MEDS: lurasidone 20mg tablet PO SCH (08:05)
[2021-02-10 08:13] LABS: C-REACTIVE PROTEIN 6.74 MG/DL (0.0-0.5)
[2021-02-10 08:20] LABS: BASOPHILS % (AUTO) 0.1 % (0-1); EOSINOPHILS % (AUTO) 0 % (0-6); HEMATOCRIT 30.3 % (35.0-45.0); HEMOGLOBIN 10.3 g/dl (12.0-16.0); LYMPHOCYTES # (AUTO) 0.4 X10'3 (1.1-4.8); LYMPHOCYTES % (AUTO) 6.2 % (21-51); MEAN CORPUSCULAR HEMOGLOBIN 31.1 PG (27.0-31.0); MEAN CORPUSCULAR VOLUME 91.4 FL (78-98); MEAN PLATELET VOLUME 8.5 FL (7.4-10.4); MONOCYTES # (AUTO) 0.5 X10'3 (0-0.9); MONOCYTES % (AUTO) 6.8 % (2-12); NEUTROPHILS # (AUTO) 5.9 X10'3 (1.8-7.7); NEUTROPHILS % (AUTO) 86.9 % (42-75); PLATELET COUNT 367 X10'3 (140-440); RED BLOOD COUNT 3.31 X10'6 (4.20-5.60); RED CELL DISTRIBUTION WIDTH 14.1 % (11.5-14.5); WHITE BLOOD COUNT 6.7 X10'3 (4.5-11.0)
[2021-02-10] MEDS: nystatin 15 GM powder TP SCH ×3 (08:26→21:00)
[2021-02-10] MEDS: montelukast 10mg tablet PO SCH (08:26)
[2021-02-10 08:35] LABS: ALANINE AMINOTRANSFERASE 35 U/L (12-78); ALBUMIN/GLOBULIN RATIO 0.4 (1.1-1.5); ALKALINE PHOSPHATASE 81 IU/L (46-116); ANION GAP 8 (8-16); ASPARTATE AMINO TRANSFERASE 14 U/L (10-37); BILIRUBIN,TOTAL 0.3 MG/DL (0.1-1.0); BLOOD UREA NITROGEN 17 MG/DL (7-18); BUN/CREATININE RATIO 39.5 (6.6-38.0); CALCIUM 7.9 MG/DL (8.5-10.1); CHLORIDE 101 MMOL/L (99-107); CREATININE 0.43 MG/DL (0.40-0.90); GLUCOSE 233 MG/DL (70-104); POTASSIUM 4.4 MMOL/L (3.5-5.1); SODIUM 138 MMOL/L (135-145); TOTAL CARBON DIOXIDE 28.7 MMOL/L (24-32); TOTAL PROTEIN 6.9 G/DL (6.4-8.2); eGFR > 90 ML/MIN
[2021-02-10] MEDS: insulin Lispro (HumaLOG) vial - multi-dose SQ SCH ×3 (09:31→22:25)
[2021-02-10 10:03] VITALS: BP 132/68
[2021-02-10 10:59] LABS: D-DIMER 0.87 MG/L FEU (0-0.50)
--- NOTE | 2021-02-10 11:16 | NUR ---
Patients son came to visit his mother this morning with permission from infection control. Proof of vaccination in patients chart and faxed to nursing retail warehouse supervisor and infection control. Patient is much more alert and oriented this morning than she has been the past couple of days for this RN. Was about to do a pureed diet with thin liquids with speech therapy also. Meds crushed and given with yogurt. She is resting at this time
[2021-02-10] MEDS: LORazepam 2 mg/ml vial IV PRN (13:58)
[2021-02-10 14:00] VITALS: BP 106/55
--- NOTE | 2021-02-10 14:31 | NUR ---
F/u 02/10: Pt made NPO per BIOFUELS PRODUCT DEVELOPMENT MANAGER recs 02/08-02/09 documented as NPO though no PO diet ordered in EMR. Pt returned to pureed/thin/carb controlled diet this AM per BIOFU[employer] PRODUCT DEVELOPMENT MANAGER recs PO pending. Per RN note pt eating for breakfast following BSS more A/O this AM however documented as NPO w/ no PO intake noted. Prior to 2-day NPO period pt PO slowly improving to 50% avg meals w/ 75-100% ensure enlive TIDWM. Receiving D5/NS at 75ml/hr providing 306 kcals/day since yesterday. LBM 02/09. Will monitor for PO trends w/ PO diet return. Recs: 1. Continue pureed CHO controlled/thin diet per BIO[employer] PRODUCT DEVELOPMENT MANAGER/MD recs; encourage PO 2. Ensure Enlive TIDWM; encourage PO 3. Bowel care per rx 4. Scaled wt this admit; subsequent weekly wts Addendum: 02/10/21 at [address] Amended: Links added.
[2021-02-10] MEDS: dextrose 50%-water 50ml dispensing syringe IV PRN (17:57)
[2021-02-10 18:00] VITALS: BP 107/59
--- NOTE | 2021-02-10 18:36 | NUR ---
Problems reprioritized. Patient report given, questions answered & plan of care reviewed with Rochelle AGARWAL.
[2021-02-10] MEDS: polyethylene glycol 3350 17gm powd pack PO SCH (20:19)
[2021-02-10] MEDS: traZODone 50mg tablet PO SCH (20:58)
[2021-02-10] MEDS: amitriptyline 25mg tablet PO SCH (20:59)
[2021-02-10] MEDS: LORazepam 0.5 MG tablet PO PRN (20:59)
[2021-02-10] MEDS: chlorproMAZINE 25mg tablet PO SCH (21:04)
[2021-02-10 22:00] VITALS: BP 123/64
[2021-02-10] MEDS: insulin glargine (Lantus) pen - multi-dose SQ SCH (22:23)
[2021-02-11 02:00] VITALS: BP 110/60
[2021-02-11] MEDS: methylPREDNISolone sod succ/PF 40mg inj. IV SCH ×4 (02:14→20:29)
[2021-02-11 06:00] VITALS: BP 128/65
--- NOTE | 2021-02-11 06:29 | NUR ---
Problems reprioritized. Patient report given, questions answered & plan of care reviewed with Taylor AGARWAL .
--- NOTE | 2021-02-11 06:45 | NUR ---
Patient in room ORTHO 4007. I have received report from STEFANO VILLASEÑOR and had the opportunity to ask questions and assume patient care.
[2021-02-11] MEDS: CEFEPIME 2gm in D5W 50mL 50 ML IV SCH ×2 (08:05→20:30)
[2021-02-11] MEDS: gabapentin 300mg capsule PO SCH (08:07)
[2021-02-11] MEDS: lactobacillus rhamnosus 10,000 MMU CELLS/CAPSULE PO SCH ×2 (08:07→20:29)
[2021-02-11] MEDS: montelukast 10mg tablet PO SCH (08:07)
[2021-02-11] MEDS: busPIRone 5mg tablet PO SCH ×2 (08:07→20:29)
[2021-02-11] MEDS: enoxaparin 40mg/0.4ml syringe SUBCUT SCH ×2 (08:07→20:29)
[2021-02-11] MEDS: sertraline 50mg tablet PO SCH (08:07)
[2021-02-11] MEDS: buPROPion 100mg tablet PO SCH ×3 (08:07→20:29)
[2021-02-11] MEDS: cholecalciferol (vitamin D3) 1,000 unit (25mcg) tablet PO SCH (08:07)
[2021-02-11] MEDS: lurasidone 20mg tablet PO SCH (08:07)
[2021-02-11] MEDS: acetaminophen 325mg tablet PO PRN (08:08)
[2021-02-11] MEDS: nystatin 15 GM powder TP SCH ×3 (08:08→21:37)
[2021-02-11] MEDS: lactose-reduced food (Ensure Enlive) - 237ml bottle PO SCH ×5 (08:30→19:03)
[2021-02-11 10:00] VITALS: BP 106/58
[2021-02-11] MEDS: aspirin 81mg tab.chew PO SCH (10:36)
[2021-02-11] MEDS: insulin Lispro (HumaLOG) vial - multi-dose SQ SCH ×3 (10:36→21:37)
[2021-02-11 15:00] VITALS: BP 104/67
--- NOTE | 2021-02-11 16:44 | NUR ---
TPN vs TF consult: Pt s/p f/u BSS 02/[address] recs pureed food with thin liquids. Patient's PO intake fluctuates with mostly 25% PO intake though pt appears to not consume the protein and documented to have refused lunch today, however is with mostly 75% PO intake of Ensure Enlive. IF pt consumes 75% of Ensure Enlive TID this will provide ~787 kcal and 45 g protein meeting 44% minimum estimated energy needs and 49% minimum estimated protein needs with just ONS intake alone, using IBW to calculate estimated nutrient needs as current documented wt isn't scaled. [place] paged with recommendation for Corpak placement for supplemental TF rather than TPN given functional gut, pt passed BSS 02/10, and pt drinking Ensures. Awaiting response from MD at this time. If PO intake declines OR pt does not pass f/u BSS pt would benefit from TF for sole source of nutrition. Will place TF recommendations below for IF pt to get Corpak placed. Will continue to follow closely. Recommendations: 1) Continue pureed CHO controlled diet with thin liquids per ST recs 2) Ensure Enlive TIDWM 3) Encourage PO intake of meals/ONS 4) IF pt to get Corpak placed for supplemental TF and pt continues with average 75% PO intake of Ensure Enlive TID: continuous Vital AF with goal rate of 45 mL/hr OR nocturnal TF for 12 hours from 8518-5923 using Vital AF at 90 mL/hr. To provide 1080 mL total volume/day, 1296 kcal, 81 g protein, and 876 mL water; adjust as appropriate based on patient's PO intake 5) IF supplemental TF with PO diet, no water flushes 6) IF TF, prealbumin q Saturday/, daily scaled weights 7) Discontinue D5/NS given elevated BG levels 8) Bowel care per rx 9) Scaled wt this admit; subsequent weekly wts Addendum: 02/11/21 at [address] Amended: Links added.
[2021-02-11 18:00] VITALS: BP 124/76
--- NOTE | 2021-02-11 18:35 | NUR ---
Problems reprioritized. Patient report given, questions answered & plan of care reviewed with STEFANO VILLASEÑOR.
[2021-02-11] MEDS: LORazepam 0.5 MG tablet PO PRN (19:18)
[2021-02-11] MEDS: dextrose 5%-normal saline 1,000 ML IV SCH (20:20)
[2021-02-11] MEDS: polyethylene glycol 3350 17gm powd pack PO SCH (20:20)
[2021-02-11] MEDS: amitriptyline 25mg tablet PO SCH (20:29)
[2021-02-11] MEDS: traZODone 50mg tablet PO SCH (20:29)
[2021-02-11] MEDS: chlorproMAZINE 25mg tablet PO SCH (20:30)
[2021-02-11] MEDS: insulin glargine (Lantus) pen - multi-dose SQ SCH (21:32)
[2021-02-11 22:00] VITALS: BP 142/72
[2021-02-12] MEDS: LORazepam 2 mg/ml vial IV PRN
[2021-02-12] MEDS: methylPREDNISolone sod succ/PF 40mg inj. IV SCH ×4 (01:51→19:25)
[2021-02-12 02:00] VITALS: BP 129/72
[2021-02-12] MEDS: HYDROcodone/acetaminophen 5mg/325mg tablet PO PRN (03:40)
[2021-02-12 06:00] VITALS: BP 109/63
--- NOTE | 2021-02-12 06:32 | NUR ---
Problems reprioritized. Patient report given, questions answered & plan of care reviewed with Pattie AGARWAL .
[2021-02-12] MEDS: CEFEPIME 2gm in D5W 50mL 50 ML IV SCH ×2 (07:50→19:26)
[2021-02-12] MEDS: buPROPion 100mg tablet PO SCH ×3 (07:51→19:26)
[2021-02-12] MEDS: sertraline 50mg tablet PO SCH (07:51)
[2021-02-12] MEDS: aspirin 81mg tab.chew PO SCH (07:52)
[2021-02-12] MEDS: enoxaparin 40mg/0.4ml syringe SUBCUT SCH ×2 (07:52→19:27)
[2021-02-12] MEDS: lurasidone 20mg tablet PO SCH (07:53)
[2021-02-12] MEDS: montelukast 10mg tablet PO SCH (07:53)
[2021-02-12] MEDS: busPIRone 5mg tablet PO SCH ×2 (07:53→19:26)
[2021-02-12] MEDS: cholecalciferol (vitamin D3) 1,000 unit (25mcg) tablet PO SCH (07:53)
[2021-02-12] MEDS: lactobacillus rhamnosus 10,000 MMU CELLS/CAPSULE PO SCH ×2 (07:53→19:26)
[2021-02-12] MEDS: gabapentin 300mg capsule PO SCH (07:53)
[2021-02-12] MEDS: nystatin 15 GM powder TP SCH ×3 (08:00→21:33)
[2021-02-12] MEDS: insulin Lispro (HumaLOG) vial - multi-dose SQ SCH ×4 (08:27→21:31)
[2021-02-12 10:00] VITALS: BP 135/69
--- NOTE | 2021-02-12 11:13 | NUR ---
PAGER ID: [phone] MESSAGE: [phone] LAURI order for robitussin please [phone]
[2021-02-12] MEDS: guaiFENesin/codeine phos 10ml UD oral syrup PO PRN ×2 (11:32→19:25)
--- NOTE | 2021-02-12 13:21 | NUR ---
Patient does require minimal assistance setting up for meals. She typically doesn't care for hospital food except vegetables. Possibly a cultural issue. She does however routinely drink 100% of her ensure protein drinks 2-[address] Brantley and she has decided not to put in feeding tube at this time.
[2021-02-12] MEDS: dextrose 5%-normal saline 1,000 ML IV SCH ×2 (13:39→23:00)
[2021-02-12 14:00] VITALS: BP 115/57
[2021-02-12 18:00] VITALS: BP 113/52
--- NOTE | 2021-02-12 18:21 | NUR ---
PAGER ID: [phone] MESSAGE: [phone] Rudi does she really need to be on Dex? her sugar is high [phone]
[2021-02-12] MEDS: lactose-reduced food (Ensure Enlive) - 237ml bottle PO SCH (18:41)
[2021-02-12] MEDS: amitriptyline 25mg tablet PO SCH (19:26)
[2021-02-12] MEDS: traZODone 50mg tablet PO SCH (19:26)
[2021-02-12] MEDS: chlorproMAZINE 25mg tablet PO SCH (19:27)
[2021-02-12] MEDS: polyethylene glycol 3350 17gm powd pack PO SCH (19:37)
[2021-02-12] MEDS: insulin glargine (Lantus) pen - multi-dose SQ SCH (21:32)
[2021-02-12 22:00] VITALS: BP 113/59
[2021-02-12] MEDS: LORazepam 0.5 MG tablet PO PRN (22:36)
[2021-02-12] MEDS: normal saline 1000ml 1,000 ML IV SCH (23:14)
[2021-02-13 02:00] VITALS: BP 102/52
[2021-02-13] MEDS: methylPREDNISolone sod succ/PF 40mg inj. IV SCH ×3 (02:26→20:58)
[2021-02-13] MEDS: LORazepam 0.5 MG tablet PO PRN ×3 (05:52→21:09)
[2021-02-13 06:00] VITALS: BP 138/71
--- NOTE | 2021-02-13 06:25 | NUR ---
Problems reprioritized. Patient report given, questions answered & plan of care reviewed with STEFANO Tolliver.
[2021-02-13] MEDS: CEFEPIME 2gm in D5W 50mL 50 ML IV SCH ×2 (08:12→20:57)
[2021-02-13] MEDS: montelukast 10mg tablet PO SCH (08:15)
[2021-02-13] MEDS: gabapentin 300mg capsule PO SCH (08:15)
[2021-02-13] MEDS: busPIRone 5mg tablet PO SCH ×2 (08:15→20:56)
[2021-02-13] MEDS: lactobacillus rhamnosus 10,000 MMU CELLS/CAPSULE PO SCH ×2 (08:15→20:56)
[2021-02-13] MEDS: enoxaparin 40mg/0.4ml syringe SUBCUT SCH ×2 (08:16→20:56)
[2021-02-13] MEDS: cholecalciferol (vitamin D3) 1,000 unit (25mcg) tablet PO SCH (08:16)
[2021-02-13] MEDS: aspirin 81mg tab.chew PO SCH (08:16)
[2021-02-13] MEDS: buPROPion 100mg tablet PO SCH ×3 (08:16→20:56)
[2021-02-13] MEDS: sertraline 50mg tablet PO SCH (08:16)
[2021-02-13] MEDS: lactose-reduced food (Ensure Enlive) - 237ml bottle PO SCH ×3 (08:17→18:00)
[2021-02-13] MEDS: lurasidone 20mg tablet PO SCH (08:17)
[2021-02-13] MEDS: guaiFENesin/codeine phos 10ml UD oral syrup PO PRN ×2 (11:13→23:13)
[2021-02-13] MEDS: insulin Lispro (HumaLOG) vial - multi-dose SQ SCH (14:06)
[2021-02-13 18:00] VITALS: BP 103/51
[2021-02-13] MEDS: traZODone 50mg tablet PO SCH (20:56)
[2021-02-13] MEDS: chlorproMAZINE 25mg tablet PO SCH (20:56)
[2021-02-13] MEDS: amitriptyline 25mg tablet PO SCH (20:57)
[2021-02-13] MEDS: polyethylene glycol 3350 17gm powd pack PO SCH (21:00)
[2021-02-13] MEDS: insulin glargine (Lantus) pen - multi-dose SQ SCH (21:03)
[2021-02-13] MEDS: nystatin 15 GM powder TP SCH (21:22)
[2021-02-13 22:00] VITALS: BP 119/61
[2021-02-14 01:59] VITALS: BP 98/55
[2021-02-14 06:00] VITALS: BP 126/62
--- NOTE | 2021-02-14 06:29 | NUR ---
Problems reprioritized. Patient report given, questions answered & plan of care reviewed with STEFANO AVILA.
--- NOTE | 2021-02-14 06:33 | NUR ---
Patient in room ORTHO 4007. I have received report from STEFANO KELLEY and had the opportunity to ask questions and assume patient care.
[2021-02-14] MEDS: guaiFENesin/codeine phos 10ml UD oral syrup PO PRN ×2 (07:07→14:18)
[2021-02-14] MEDS: ALBUTEROL INHALER 1 PUFF/90 MCG INHALER IH PRN (07:35)
[2021-02-14] MEDS: enoxaparin 40mg/0.4ml syringe SUBCUT SCH ×2 (07:51→20:15)
[2021-02-14] MEDS: gabapentin 300mg capsule PO SCH (07:51)
[2021-02-14] MEDS: lactobacillus rhamnosus 10,000 MMU CELLS/CAPSULE PO SCH ×2 (07:51→20:08)
[2021-02-14] MEDS: CEFEPIME 2gm in D5W 50mL 50 ML IV SCH (07:51)
[2021-02-14] MEDS: montelukast 10mg tablet PO SCH (07:51)
[2021-02-14] MEDS: busPIRone 5mg tablet PO SCH ×2 (07:51→20:13)
[2021-02-14] MEDS: buPROPion 100mg tablet PO SCH ×3 (07:51→21:00)
[2021-02-14] MEDS: sertraline 50mg tablet PO SCH (07:51)
[2021-02-14] MEDS: lurasidone 20mg tablet PO SCH (07:51)
[2021-02-14] MEDS: aspirin 81mg tab.chew PO SCH (07:52)
[2021-02-14] MEDS: lactose-reduced food (Ensure Enlive) - 237ml bottle PO SCH ×3 (07:52→18:02)
[2021-02-14] MEDS: cholecalciferol (vitamin D3) 1,000 unit (25mcg) tablet PO SCH (07:52)
[2021-02-14] MEDS: methylPREDNISolone sod succ/PF 40mg inj. IV SCH ×2 (07:52→20:16)
[2021-02-14] MEDS: nystatin 15 GM powder TP SCH ×3 (07:52→20:21)
[2021-02-14] MEDS: insulin Lispro (HumaLOG) vial - multi-dose SQ SCH ×3 (09:41→22:27)
--- NOTE | 2021-02-14 09:50 | NUR ---
F/u 02/14: Pt corpak placement cancelled by MD given some PO intake per EMR. PO continues to fluctuate though some improvement past 3 days ~42% avg meals and 62.5% avg Ensure Enlive TIDWM partially meeting needs. On 55L HFNC likely impacting PO capabilities. Noted low Glu 48 last night though currently WNL on glycemic protocol. LBM 02/13. Will continue to monitor. Recommendations: 1) Continue pureed CHO controlled diet with thin liquids per ST/MD recs 2) Ensure Enlive TIDWM; encourage PO 3) Consider routine CMP if MD agreeable; last 4 days prior 02/10 4) Bowel care per rx 5) consider NG nutrition if PO regresses given inadequate intake since admit 6) Scaled wt this admit; subsequent weekly wts Addendum: 02/14/21 at [address] Amended: Links added.
[2021-02-14 10:00] VITALS: BP 107/51
[2021-02-14 14:00] VITALS: BP 115/58
--- NOTE | 2021-02-14 16:18 | NUR ---
Patient in room ORTHO 4007. I have received report from Aixa AGARWAL and had the opportunity to ask questions and assume patient care.
--- NOTE | 2021-02-14 16:18 | NUR ---
CALLED REPORT TO STEFANO JETT ON PCU IN ANTICIPATION FOR TRANSFER OF PT.
--- NOTE | 2021-02-14 17:00 | NUR ---
PT LEFT FLOOR AT 1640
[2021-02-14 17:34] VITALS: BP 96/56
--- NOTE | 2021-02-14 19:14 | NUR ---
Pt in bed HOB elevated to 45 degree complaints of difficulty breathing; pt place back on high flow oxygen and saturation reported 91. Respiratory paged to assess pt oxygen level.
--- NOTE | 2021-02-14 19:22 | NUR ---
respiratory therapist at bedside, oxygen level increased to 80 fio2. Pt saturating at 91%. Pt appears to be anxious; requested to medicated with ativan
[2021-02-14 19:29] VITALS: BP 102/50
[2021-02-14] MEDS: LORazepam 0.5 MG tablet PO PRN (20:09)
[2021-02-14] MEDS: amitriptyline 25mg tablet PO SCH (20:27)
[2021-02-14] MEDS: traZODone 50mg tablet PO SCH (20:31)
[2021-02-14] MEDS: polyethylene glycol 3350 17gm powd pack PO SCH (22:13)
[2021-02-14] MEDS: insulin glargine (Lantus) pen - multi-dose SQ SCH (22:36)
[2021-02-14] MEDS: chlorproMAZINE 25mg tablet PO SCH (22:50)
--- NOTE | 2021-02-14 23:00 | NUR ---
Pt medicated for blood sugar of 111 and cab and beverage intake of 75gm. 15 units of insulin given.
[2021-02-15] MEDS: normal saline 1000ml 1,000 ML IV SCH (01:33)
[2021-02-15] MEDS: CEFEPIME 2gm in D5W 50mL 50 ML IV SCH ×3 (03:38→23:26)
[2021-02-15 04:19] VITALS: BP 105/58
--- NOTE | 2021-02-15 05:00 | NUR ---
Pt AAox3 in stable condition. No signs of respiratory distress noted. Ambika care done, turn pt to her left side. Call light , suction placed near pt with instruction to call as needed.
[2021-02-15 06:00] VITALS: BP 96/48
--- NOTE | 2021-02-15 06:36 | NUR ---
Report given to Rosa AGARWAL . Pt in stable condition resting at this time
[2021-02-15] MEDS: buPROPion 100mg tablet PO SCH ×3 (08:00→22:12)
[2021-02-15 08:06] LABS: BASOPHILS # (AUTO) 0.1 X10'3 (0-0.2); BASOPHILS % (AUTO) 0.5 % (0-1); EOSINOPHILS # (AUTO) 0.1 X10'3 (0-0.9); EOSINOPHILS % (AUTO) 0.8 % (0-6); HEMATOCRIT 30.8 % (35.0-45.0); HEMOGLOBIN 10.4 g/dl (12.0-16.0); LYMPHOCYTES # (AUTO) 1.3 X10'3 (1.1-4.8); LYMPHOCYTES % (AUTO) 10.7 % (21-51); MEAN CORPUSCULAR HEMOGLOBIN 31.1 PG (27.0-31.0); MEAN CORPUSCULAR HGB CONC 33.9 g/dL (33.0-36.5); MEAN CORPUSCULAR VOLUME 91.9 FL (78-98); MONOCYTES # (AUTO) 0.9 X10'3 (0-0.9); MONOCYTES % (AUTO) 7.8 % (2-12); NEUTROPHILS # (AUTO) 9.4 X10'3 (1.8-7.7); NEUTROPHILS % (AUTO) 80.2 % (42-75); PLATELET COUNT 476 X10'3 (140-440); RED BLOOD COUNT 3.35 X10'6 (4.20-5.60); RED CELL DISTRIBUTION WIDTH 15.3 % (11.5-14.5); WHITE BLOOD COUNT 11.8 X10'3 (4.5-11.0)
[2021-02-15] MEDS: gabapentin 300mg capsule PO SCH (08:34)
[2021-02-15] MEDS: sertraline 50mg tablet PO SCH (08:34)
[2021-02-15] MEDS: aspirin 81mg tab.chew PO SCH (08:34)
[2021-02-15] MEDS: lactobacillus rhamnosus 10,000 MMU CELLS/CAPSULE PO SCH ×2 (08:34→22:15)
[2021-02-15] MEDS: busPIRone 5mg tablet PO SCH ×2 (08:34→22:16)
[2021-02-15] MEDS: methylPREDNISolone sod succ/PF 40mg inj. IV SCH (08:34)
[2021-02-15] MEDS: enoxaparin 40mg/0.4ml syringe SUBCUT SCH ×2 (08:34→22:13)
[2021-02-15] MEDS: montelukast 10mg tablet PO SCH (08:35)
[2021-02-15] MEDS: LORazepam 0.5 MG tablet PO PRN ×2 (08:35→16:13)
[2021-02-15] MEDS: guaiFENesin/codeine phos 10ml UD oral syrup PO PRN (08:35)
[2021-02-15] MEDS: cholecalciferol (vitamin D3) 1,000 unit (25mcg) tablet PO SCH (08:35)
[2021-02-15] MEDS: nystatin 15 GM powder TP SCH ×3 (08:39→22:14)
[2021-02-15 08:42] LABS: D-DIMER 0.64 MG/L FEU (0-0.50)
[2021-02-15] MEDS: lactose-reduced food (Ensure Enlive) - 237ml bottle PO SCH ×3 (08:48→18:26)
[2021-02-15 08:56] LABS: ALBUMIN 2.2 G/DL (3.4-5.0); ANION GAP 8 (8-16); BLOOD UREA NITROGEN 19 MG/DL (7-18); BUN/CREATININE RATIO 35.8 (6.6-38.0); C-REACTIVE PROTEIN 0.38 MG/DL (0.0-0.5); CALCIUM 8.8 MG/DL (8.5-10.1); CHLORIDE 105 MMOL/L (99-107); CREATININE 0.53 MG/DL (0.40-0.90); GLUCOSE 64 MG/DL (70-104); POTASSIUM 4.3 MMOL/L (3.5-5.1); SODIUM 142 MMOL/L (135-145); TOTAL CARBON DIOXIDE 29.4 MMOL/L (24-32); eGFR > 90 ML/MIN
[2021-02-15 11:00] VITALS: BP 119/59
[2021-02-15] MEDS: lurasidone 20mg tablet PO SCH (13:12)
[2021-02-15] MEDS: HYDROcodone/acetaminophen 5mg/325mg tablet PO PRN (14:49)
[2021-02-15 15:00] VITALS: BP 101/51
[2021-02-15] MEDS: insulin Lispro (HumaLOG) vial - multi-dose SQ SCH (15:05)
[2021-02-15] MEDS: ipratropium/albuterol 3ml nebule NEB SCH ×3 (16:24→23:35)
--- NOTE | 2021-02-15 17:33 | NUR ---
Pt has been repositioned Q2H and PRN with the assistance of nursing staff.
--- NOTE | 2021-02-15 18:32 | NUR ---
Problems reprioritized. Patient report given, questions answered & plan of care reviewed with STEFANO Keller.
--- NOTE | 2021-02-15 18:33 | NUR ---
Patient in room PCU 3021. I have received report from STEFANO Lee and had the opportunity to ask questions and assume patient care.
[2021-02-15 19:00] VITALS: BP 90/52
[2021-02-15 20:48] LABS: CLARITY,URINE CLOUDY (Clear); COLOR,URINE YELLOW (Yellow); PH,URINE 7.5 (4.8-8.0); UA COLLECTION TYPE NON-SPECIFIED
[2021-02-15 20:49] LABS: GLUCOSE, URINE 250 mg/dl (Neg); KETONES,URINE TRACE mg/dl (Neg); LEUKOCYTE ESTERASE ,URINE NEGATIVE (Neg); NITRITES, URINE NEGATIVE (Neg); OCCULT BLOOD,URINE LARGE (Neg); PROTEIN,URINE TRACE mg/dl (Neg); UROBILINOGEN,URINE 0.2 E.U/dL (0.2-1.0)
[2021-02-15 20:51] LABS: BACTERIA,URINE FEW /HPF (Neg); MUCUS STRANDS FEW /LPF (Neg); RBC,URINE TNTC /HPF (0-2); SQUAMOUS EPITHELIAL CELL,UR FEW /LPF (FEW); WBC,URINE 0-4 /HPF (0-4)
[2021-02-15] MEDS: insulin glargine (Lantus) pen - multi-dose SQ SCH (21:00)
[2021-02-15] MEDS: dextrose 50%-water 50ml dispensing syringe IV PRN (21:28)
[2021-02-15] MEDS: chlorproMAZINE 25mg tablet PO SCH (22:11)
[2021-02-15] MEDS: traZODone 50mg tablet PO SCH (22:12)
[2021-02-15] MEDS: amitriptyline 25mg tablet PO SCH (22:12)
[2021-02-15] MEDS: polyethylene glycol 3350 17gm powd pack PO SCH (22:13)
--- NOTE | 2021-02-15 22:30 | NUR ---
Patient BG was 48, orange juice given, drink half, lethargy at the time, D5 was given via IV, tolerated well. Patient didn't eat her dinner and the Ensure. Recheck BG 229. Safety measures and comfort maintained. Will continue to monitor
[2021-02-15 23:00] VITALS: BP 104/59
[2021-02-16 03:00] VITALS: BP 102/55
[2021-02-16] MEDS: ipratropium/albuterol 3ml nebule NEB SCH ×6 (03:59→23:52)
--- NOTE | 2021-02-16 05:00 | NUR ---
Patient BG 102 now, sleeping quietly. No acute distress noted. Will continue to monitor. Family member called to informed about the patient, also made aware of BG was low and that she didn't eat her dinner.
[2021-02-16 06:00] VITALS: BP 130/61
--- NOTE | 2021-02-16 06:15 | NUR ---
Problems reprioritized. Patient report given, questions answered & plan of care reviewed with STEFANO Lee.
[2021-02-16] MEDS: lurasidone 20mg tablet PO SCH (07:43)
[2021-02-16] MEDS: lactobacillus rhamnosus 10,000 MMU CELLS/CAPSULE PO SCH ×2 (07:43→21:08)
[2021-02-16] MEDS: gabapentin 300mg capsule PO SCH (07:44)
[2021-02-16] MEDS: sertraline 50mg tablet PO SCH (07:45)
[2021-02-16] MEDS: montelukast 10mg tablet PO SCH (07:46)
[2021-02-16] MEDS: cholecalciferol (vitamin D3) 1,000 unit (25mcg) tablet PO SCH (07:46)
[2021-02-16] MEDS: busPIRone 5mg tablet PO SCH ×2 (07:46→21:06)
[2021-02-16] MEDS: methylPREDNISolone sod succ/PF 40mg inj. IV SCH (07:47)
[2021-02-16] MEDS: enoxaparin 40mg/0.4ml syringe SUBCUT SCH ×2 (07:49→21:07)
[2021-02-16] MEDS: nystatin 15 GM powder TP SCH ×3 (07:50→21:07)
[2021-02-16] MEDS: buPROPion 100mg tablet PO SCH ×3 (07:51→21:06)
[2021-02-16] MEDS: lactose-reduced food (Ensure Enlive) - 237ml bottle PO SCH ×4 (07:54→19:00)
[2021-02-16] MEDS: aspirin 81mg tab.chew PO SCH (07:54)
[2021-02-16] MEDS: CEFEPIME 2gm in D5W 50mL 50 ML IV SCH ×2 (07:54→21:49)
[2021-02-16 10:43] LABS: ALANINE AMINOTRANSFERASE 35 U/L (12-78); ALBUMIN 2.2 G/DL (3.4-5.0); ALBUMIN/GLOBULIN RATIO 0.6 (1.1-1.5); ALKALINE PHOSPHATASE 67 IU/L (46-116); ANION GAP 8 (8-16); ASPARTATE AMINO TRANSFERASE 18 U/L (10-37); BILIRUBIN,TOTAL 0.3 MG/DL (0.1-1.0); BLOOD UREA NITROGEN 21 MG/DL (7-18); CALCIUM 8.1 MG/DL (8.5-10.1); CHLORIDE 101 MMOL/L (99-107); CREATININE 0.75 MG/DL (0.40-0.90); GLUCOSE 278 MG/DL (70-104); POTASSIUM 4.4 MMOL/L (3.5-5.1); SODIUM 137 MMOL/L (135-145); TOTAL CARBON DIOXIDE 28.1 MMOL/L (24-32); TOTAL PROTEIN 6.2 G/DL (6.4-8.2); eGFR 78 ML/MIN
[2021-02-16 10:45] LABS: BASOPHILS % (AUTO) 0.2 % (0-1); EOSINOPHILS # (AUTO) 0.5 X10'3 (0-0.9); EOSINOPHILS % (AUTO) 4.7 % (0-6); HEMATOCRIT 31.2 % (35.0-45.0); HEMOGLOBIN 10.7 g/dl (12.0-16.0); LYMPHOCYTES # (AUTO) 0.7 X10'3 (1.1-4.8); LYMPHOCYTES % (AUTO) 6.1 % (21-51); MEAN CORPUSCULAR HEMOGLOBIN 31.9 PG (27.0-31.0); MEAN CORPUSCULAR HGB CONC 34.3 g/dL (33.0-36.5); MEAN CORPUSCULAR VOLUME 93.1 FL (78-98); MEAN PLATELET VOLUME 8.1 FL (7.4-10.4); MONOCYTES # (AUTO) 0.5 X10'3 (0-0.9); MONOCYTES % (AUTO) 4.8 % (2-12); NEUTROPHILS # (AUTO) 9.2 X10'3 (1.8-7.7); NEUTROPHILS % (AUTO) 84.2 % (42-75); PLATELET COUNT 476 X10'3 (140-440); RED BLOOD COUNT 3.36 X10'6 (4.20-5.60); RED CELL DISTRIBUTION WIDTH 15.4 % (11.5-14.5); WHITE BLOOD COUNT 10.9 X10'3 (4.5-11.0)
[2021-02-16 11:00] VITALS: BP 118/61
[2021-02-16 13:24] LABS: CLARITY,URINE SLIGHTLY CLOUDY (Clear); COLOR,URINE YELLOW (Yellow); GLUCOSE, URINE NEGATIVE (Neg); KETONES,URINE NEGATIVE (Neg); LEUKOCYTE ESTERASE ,URINE TRACE (Neg); NITRITES, URINE NEGATIVE (Neg); OCCULT BLOOD,URINE MODERATE (Neg); PROTEIN,URINE NEGATIVE (Neg); UA COLLECTION TYPE NON-SPECIFIED; UROBILINOGEN,URINE 0.2 E.U/dL (0.2-1.0)
[2021-02-16 13:30] LABS: BACTERIA,URINE FEW /HPF (Neg); RBC,URINE 20-50 /HPF (0-2)
[2021-02-16 13:31] LABS: AMORPHOUS PHOSPHATES 1+; SQUAMOUS EPITHELIAL CELL,UR FEW /LPF (FEW)
[2021-02-16 15:00] VITALS: BP 113/56
[2021-02-16] MEDS: insulin Lispro (HumaLOG) vial - multi-dose SQ SCH ×2 (15:26→20:57)
[2021-02-16] MEDS: HYDROcodone/acetaminophen 5mg/325mg tablet PO PRN (15:43)
--- NOTE | 2021-02-16 18:17 | NUR ---
Problems reprioritized. Patient report given, questions answered & plan of care reviewed with STEFANO Keller.
--- NOTE | 2021-02-16 18:18 | NUR ---
Patient in room PCU 3021. I have received report from STEFANO Lee and had the opportunity to ask questions and assume patient care.
[2021-02-16 19:00] VITALS: BP 106/59
[2021-02-16] MEDS: insulin glargine (Lantus) pen - multi-dose SQ SCH (21:01)
[2021-02-16] MEDS: LORazepam 0.5 MG tablet PO PRN (21:04)
[2021-02-16] MEDS: chlorproMAZINE 25mg tablet PO SCH (21:05)
[2021-02-16] MEDS: amitriptyline 25mg tablet PO SCH (21:06)
[2021-02-16] MEDS: traZODone 50mg tablet PO SCH (21:07)
[2021-02-16] MEDS: polyethylene glycol 3350 17gm powd pack PO SCH (21:07)
[2021-02-16 23:00] VITALS: BP 124/63
[2021-02-16] MEDS: normal saline 1000ml 1,000 ML IV SCH (23:07)
[2021-02-17 03:00] VITALS: BP 132/67
[2021-02-17] MEDS: ipratropium/albuterol 3ml nebule NEB SCH ×6 (03:05→22:49)
[2021-02-17 06:00] VITALS: BP 106/49
--- NOTE | 2021-02-17 06:12 | NUR ---
Problems reprioritized. Patient report given, questions answered & plan of care reviewed with STEFANO Lee.
[2021-02-17] MEDS: gabapentin 300mg capsule PO SCH (08:00)
[2021-02-17] MEDS: methylPREDNISolone sod succ/PF 40mg inj. IV SCH (08:00)
[2021-02-17] MEDS: enoxaparin 40mg/0.4ml syringe SUBCUT SCH ×2 (08:00→19:59)
[2021-02-17] MEDS: CEFEPIME 2gm in D5W 50mL 50 ML IV SCH (08:01)
[2021-02-17] MEDS: busPIRone 5mg tablet PO SCH ×2 (08:01→19:59)
[2021-02-17] MEDS: buPROPion 100mg tablet PO SCH ×3 (08:01→19:59)
[2021-02-17] MEDS: sertraline 50mg tablet PO SCH (08:01)
[2021-02-17] MEDS: lactobacillus rhamnosus 10,000 MMU CELLS/CAPSULE PO SCH ×2 (08:01→19:58)
[2021-02-17] MEDS: montelukast 10mg tablet PO SCH (08:01)
[2021-02-17] MEDS: cholecalciferol (vitamin D3) 1,000 unit (25mcg) tablet PO SCH (08:01)
[2021-02-17] MEDS: aspirin 81mg tab.chew PO SCH (08:01)
[2021-02-17] MEDS: lurasidone 20mg tablet PO SCH (08:02)
[2021-02-17] MEDS: nystatin 15 GM powder TP SCH ×3 (08:03→20:02)
[2021-02-17] MEDS: guaiFENesin/codeine phos 10ml UD oral syrup PO PRN ×2 (09:27→20:00)
[2021-02-17] MEDS: HYDROcodone/acetaminophen 5mg/325mg tablet PO PRN (09:28)
[2021-02-17] MEDS: insulin Lispro (HumaLOG) vial - multi-dose SQ SCH ×3 (09:32→19:46)
[2021-02-17 11:00] VITALS: BP 99/47
[2021-02-17 11:15] LABS: BASOPHILS % (AUTO) 0.4 % (0-1); EOSINOPHILS # (AUTO) 0.2 X10'3 (0-0.9); EOSINOPHILS % (AUTO) 1.6 % (0-6); HEMATOCRIT 31.4 % (35.0-45.0); HEMOGLOBIN 10.5 g/dl (12.0-16.0); LYMPHOCYTES # (AUTO) 0.4 X10'3 (1.1-4.8); LYMPHOCYTES % (AUTO) 3.3 % (21-51); MEAN CORPUSCULAR HEMOGLOBIN 31.2 PG (27.0-31.0); MEAN CORPUSCULAR HGB CONC 33.5 g/dL (33.0-36.5); MEAN CORPUSCULAR VOLUME 93.2 FL (78-98); MEAN PLATELET VOLUME 7.9 FL (7.4-10.4); MONOCYTES # (AUTO) 0.3 X10'3 (0-0.9); MONOCYTES % (AUTO) 2.4 % (2-12); NEUTROPHILS # (AUTO) 9.7 X10'3 (1.8-7.7); NEUTROPHILS % (AUTO) 92.3 % (42-75); PLATELET COUNT 442 X10'3 (140-440); RED BLOOD COUNT 3.37 X10'6 (4.20-5.60); RED CELL DISTRIBUTION WIDTH 15.6 % (11.5-14.5); WHITE BLOOD COUNT 10.5 X10'3 (4.5-11.0)
[2021-02-17 11:25] LABS: ALBUMIN 2.3 G/DL (3.4-5.0); ANION GAP 8 (8-16); BLOOD UREA NITROGEN 21 MG/DL (7-18); BUN/CREATININE RATIO 31.3 (6.6-38.0); CALCIUM 8.2 MG/DL (8.5-10.1); CHLORIDE 100 MMOL/L (99-107); CREATININE 0.67 MG/DL (0.40-0.90); GLUCOSE 260 MG/DL (70-104); SODIUM 137 MMOL/L (135-145); TOTAL CARBON DIOXIDE 28.9 MMOL/L (24-32); eGFR 88 ML/MIN
[2021-02-17] MEDS: lactose-reduced food (Ensure Enlive) - 237ml bottle PO SCH ×2 (13:40→18:12)
--- NOTE | 2021-02-17 15:13 | NUR ---
Reassessment: Pt continues on pureed CHO controlled diet with thin liquids per ST recs at f/u BSS. Pt with significant improvement in PO intake documented with average 67% PO intake of meals and Ensure Enlive TID meeting estimated nutrient needs since last RD assessment (02/14). Per EMR pt A/O x 3. Written DM education in Korean placed in patient's chart with RD contact information. LBM 02/16. No further nutrition intervention implemented at this time. Will continue to follow. Recommendations: 1) Continue pureed CHO controlled diet with thin liquids per ST recs 2) Ensure Enlive TIDWM; encourage PO 3) Bowel care per rx 4) consider NG nutrition if PO regresses given inadequate intake since admit 5) Scaled wt this admit; subsequent weekly scaled wts Addendum: 02/17/21 at [address] Amended: Links added.
--- NOTE | 2021-02-17 16:04 | NUR ---
Paged Dr Lee PAGER ID: [phone] MESSAGE: Room 3021. Chelsea Arndt. BC +. Gram + cocci in clusters from L arm, aerobic. Took 25hrs to detect. Thanks, Rosa [phone]
[2021-02-17 18:00] VITALS: BP 111/63
[2021-02-17] MEDS: piperacillin/tazo 3.375gm/50ml 50 ML IV SCH (18:01)
[2021-02-17] MEDS: LORazepam 0.5 MG tablet PO PRN (18:07)
--- NOTE | 2021-02-17 18:52 | NUR ---
Problems reprioritized. Patient report given, questions answered & plan of care reviewed with TSEFANO Keller.
--- NOTE | 2021-02-17 18:53 | NUR ---
Patient in room PCU 3021. I have received report from STEFANO Lee and had the opportunity to ask questions and assume patient care.
[2021-02-17] MEDS: amitriptyline 25mg tablet PO SCH (19:59)
[2021-02-17] MEDS: chlorproMAZINE 25mg tablet PO SCH (20:00)
[2021-02-17] MEDS: polyethylene glycol 3350 17gm powd pack PO SCH (20:00)
[2021-02-17] MEDS: traZODone 50mg tablet PO SCH (20:02)
[2021-02-17] MEDS: insulin glargine (Lantus) pen - multi-dose SQ SCH (20:22)
[2021-02-17 22:00] VITALS: BP 121/61
[2021-02-18] MEDS: piperacillin/tazo 3.375gm/50ml 50 ML IV SCH ×3 (01:38→16:00)
[2021-02-18 02:00] VITALS: BP 131/65
[2021-02-18] MEDS: ipratropium/albuterol 3ml nebule NEB SCH ×6 (03:53→23:59)
--- NOTE | 2021-02-18 06:38 | NUR ---
Problems reprioritized. Patient report given, questions answered & plan of care reviewed with STEFANO Singletary.
[2021-02-18 07:00] VITALS: BP 109/57
[2021-02-18] MEDS: lurasidone 20mg tablet PO SCH (08:00)
[2021-02-18] MEDS: lactose-reduced food (Ensure Enlive) - 237ml bottle PO SCH ×3 (08:00→18:00)
[2021-02-18] MEDS ORDERED: LORazepam 0.5 MG tablet PO PRN (10:20)
[2021-02-18 11:00] VITALS: BP 121/64
[2021-02-18] MEDS: cholecalciferol (vitamin D3) 1,000 unit (25mcg) tablet PO SCH (11:11)
[2021-02-18] MEDS: montelukast 10mg tablet PO SCH (11:11)
[2021-02-18] MEDS: buPROPion 100mg tablet PO SCH ×3 (11:11→22:02)
[2021-02-18] MEDS: LORazepam 0.5 MG tablet PO PRN (11:12)
[2021-02-18] MEDS: busPIRone 5mg tablet PO SCH ×2 (11:13→20:14)
[2021-02-18] MEDS: sertraline 50mg tablet PO SCH (11:13)
[2021-02-18] MEDS: aspirin 81mg tab.chew PO SCH (11:18)
[2021-02-18] MEDS: lactobacillus rhamnosus 10,000 MMU CELLS/CAPSULE PO SCH ×2 (11:19→20:14)
[2021-02-18] MEDS: gabapentin 300mg capsule PO SCH (11:19)
[2021-02-18] MEDS: nystatin 15 GM powder TP SCH ×3 (11:20→22:03)
[2021-02-18] MEDS: enoxaparin 40mg/0.4ml syringe SUBCUT SCH ×2 (11:23→20:19)
[2021-02-18] MEDS: methylPREDNISolone sod succ/PF 40mg inj. IV SCH (11:24)
[2021-02-18 15:00] VITALS: BP 110/60
[2021-02-18 19:00] VITALS: BP 121/59
[2021-02-18] MEDS: insulin Lispro (HumaLOG) vial - multi-dose SQ SCH (20:25)
[2021-02-18] MEDS: polyethylene glycol 3350 17gm powd pack PO SCH (22:01)
[2021-02-18] MEDS: amitriptyline 25mg tablet PO SCH (22:02)
[2021-02-18] MEDS: traZODone 50mg tablet PO SCH (22:02)
[2021-02-18] MEDS: chlorproMAZINE 25mg tablet PO SCH (22:03)
[2021-02-18] MEDS: insulin glargine (Lantus) pen - multi-dose SQ SCH (22:31)
[2021-02-18 23:00] VITALS: BP 104/48
[2021-02-18] MEDS: normal saline 1000ml 1,000 ML IV SCH (23:05)
[2021-02-19] MEDS: piperacillin/tazo 3.375gm/50ml 50 ML IV SCH ×3 (01:00→16:14)
[2021-02-19] MEDS: ipratropium/albuterol 3ml nebule NEB SCH ×6 (02:18→23:57)
[2021-02-19 06:00] VITALS: BP 95/54
[2021-02-19] MEDS: aspirin 81mg tab.chew PO SCH (07:57)
[2021-02-19] MEDS: HYDROcodone/acetaminophen 5mg/325mg tablet PO PRN ×3 (07:57→16:02)
[2021-02-19] MEDS: methylPREDNISolone sod succ/PF 40mg inj. IV SCH (07:57)
[2021-02-19] MEDS: cholecalciferol (vitamin D3) 1,000 unit (25mcg) tablet PO SCH (07:58)
[2021-02-19] MEDS: lurasidone 20mg tablet PO SCH (07:58)
[2021-02-19] MEDS: gabapentin 300mg capsule PO SCH (07:58)
[2021-02-19] MEDS: lactobacillus rhamnosus 10,000 MMU CELLS/CAPSULE PO SCH ×2 (07:58→19:13)
[2021-02-19] MEDS: buPROPion 100mg tablet PO SCH ×3 (07:58→19:19)
[2021-02-19] MEDS: busPIRone 5mg tablet PO SCH ×2 (07:58→19:14)
[2021-02-19] MEDS: sertraline 50mg tablet PO SCH (07:59)
[2021-02-19] MEDS: enoxaparin 40mg/0.4ml syringe SUBCUT SCH ×2 (07:59→19:15)
[2021-02-19] MEDS: montelukast 10mg tablet PO SCH (07:59)
[2021-02-19] MEDS: lactose-reduced food (Ensure Enlive) - 237ml bottle PO SCH ×3 (07:59→17:20)
[2021-02-19] MEDS: nystatin 15 GM powder TP SCH ×3 (07:59→19:23)
[2021-02-19 15:00] VITALS: BP 104/53
[2021-02-19] MEDS: insulin Lispro (HumaLOG) vial - multi-dose SQ SCH ×2 (15:03→19:12)
[2021-02-19 18:00] VITALS: BP 101/48
[2021-02-19] MEDS: traZODone 50mg tablet PO SCH (19:14)
[2021-02-19] MEDS: chlorproMAZINE 25mg tablet PO SCH (19:14)
[2021-02-19] MEDS: amitriptyline 25mg tablet PO SCH (19:14)
[2021-02-19] MEDS: polyethylene glycol 3350 17gm powd pack PO SCH (19:15)
[2021-02-19] MEDS: LORazepam 0.5 MG tablet PO PRN (20:43)
[2021-02-19] MEDS: insulin glargine (Lantus) pen - multi-dose SQ SCH (20:52)
[2021-02-19 22:00] VITALS: BP 110/49
[2021-02-20] MEDS: piperacillin/tazo 3.375gm/50ml 50 ML IV SCH ×2 (00:30→07:37)
[2021-02-20] MEDS: normal saline 1000ml 1,000 ML IV SCH (02:00)
[2021-02-20] MEDS: ipratropium/albuterol 3ml nebule NEB SCH ×6 (02:26→23:36)
[2021-02-20 06:00] VITALS: BP 109/73
--- NOTE | 2021-02-20 06:25 | NUR ---
Problems reprioritized. Patient report given, questions answered & plan of care reviewed with STEFANO Parry.
[2021-02-20] MEDS: buPROPion 100mg tablet PO SCH ×3 (07:37→20:34)
[2021-02-20] MEDS: gabapentin 300mg capsule PO SCH (07:37)
[2021-02-20] MEDS: lactobacillus rhamnosus 10,000 MMU CELLS/CAPSULE PO SCH ×2 (07:37→20:12)
[2021-02-20] MEDS: lurasidone 20mg tablet PO SCH (07:37)
[2021-02-20] MEDS: montelukast 10mg tablet PO SCH (07:37)
[2021-02-20] MEDS: sertraline 50mg tablet PO SCH (07:37)
[2021-02-20] MEDS: cholecalciferol (vitamin D3) 1,000 unit (25mcg) tablet PO SCH (07:38)
[2021-02-20] MEDS: methylPREDNISolone sod succ/PF 40mg inj. IV SCH (07:38)
[2021-02-20] MEDS: enoxaparin 40mg/0.4ml syringe SUBCUT SCH ×2 (07:38→20:12)
[2021-02-20] MEDS: nystatin 15 GM powder TP SCH ×3 (07:38→21:00)
[2021-02-20] MEDS: busPIRone 5mg tablet PO SCH ×2 (07:38→20:12)
[2021-02-20] MEDS: lactose-reduced food (Ensure Enlive) - 237ml bottle PO SCH ×3 (07:40→18:00)
[2021-02-20] MEDS: HYDROcodone/acetaminophen 5mg/325mg tablet PO PRN (07:47)
[2021-02-20] MEDS: aspirin 81mg tab.chew PO SCH (07:48)
[2021-02-20 11:00] VITALS: BP 111/56
[2021-02-20] MEDS: insulin Lispro (HumaLOG) vial - multi-dose SQ SCH ×2 (14:12→20:14)
[2021-02-20 15:00] VITALS: BP 108/60
--- NOTE | 2021-02-20 16:09 | NUR ---
Problems reprioritized. Patient report given, questions answered & plan of care reviewed with Shoshana AGARWAL.
[2021-02-20] MEDS: LORazepam 0.5 MG tablet PO PRN (16:42)
[2021-02-20 18:00] VITALS: BP 108/61
--- NOTE | 2021-02-20 18:13 | NUR ---
Problems reprioritized. Patient report given, questions answered & plan of care reviewed with Betty AGARWAL.
[2021-02-20] MEDS: chlorproMAZINE 25mg tablet PO SCH (20:34)
[2021-02-20] MEDS: traZODone 50mg tablet PO SCH (20:35)
[2021-02-20] MEDS: amitriptyline 25mg tablet PO SCH (20:35)
[2021-02-20] MEDS: polyethylene glycol 3350 17gm powd pack PO SCH (20:35)
[2021-02-20] MEDS ORDERED: morphine 2 MG/ML inj. syringe IV PRN (20:55)
[2021-02-20] MEDS: insulin glargine (Lantus) pen - multi-dose SQ SCH (21:00)
[2021-02-20 22:00] VITALS: BP 107/53
[2021-02-20] MEDS: dextrose 50%-water 50ml dispensing syringe IV PRN (22:20)
[2021-02-21] MEDS: ipratropium/albuterol 3ml nebule NEB SCH ×6 (03:14→23:12)
--- NOTE | 2021-02-21 04:42 | NUR ---
at 2220 My charge nurse Alexandrea and Carolee gave 50ml of dextrose 50% to this patient as ordered in the protocol to correct her critical blood sugar of 47 - her blood sugar recovered to 160. I forgot to save the scanned administration.
[2021-02-21 05:25] VITALS: BP 122/63
[2021-02-21 06:20] LABS: BASOPHILS % (AUTO) 0.3 % (0-1); EOSINOPHILS % (AUTO) 0.7 % (0-6); HEMATOCRIT 30.5 % (35.0-45.0); HEMOGLOBIN 10.2 g/dl (12.0-16.0); LYMPHOCYTES # (AUTO) 1.1 X10'3 (1.1-4.8); LYMPHOCYTES % (AUTO) 16.5 % (21-51); MEAN CORPUSCULAR HEMOGLOBIN 31.2 PG (27.0-31.0); MEAN CORPUSCULAR HGB CONC 33.6 g/dL (33.0-36.5); MEAN CORPUSCULAR VOLUME 92.8 FL (78-98); MEAN PLATELET VOLUME 8.3 FL (7.4-10.4); MONOCYTES # (AUTO) 0.7 X10'3 (0-0.9); MONOCYTES % (AUTO) 10.4 % (2-12); NEUTROPHILS # (AUTO) 4.8 X10'3 (1.8-7.7); NEUTROPHILS % (AUTO) 72.1 % (42-75); PLATELET COUNT 332 X10'3 (140-440); RED BLOOD COUNT 3.28 X10'6 (4.20-5.60); RED CELL DISTRIBUTION WIDTH 15.8 % (11.5-14.5); WHITE BLOOD COUNT 6.6 X10'3 (4.5-11.0)
--- NOTE | 2021-02-21 06:21 | NUR ---
Problems reprioritized. Patient report given, questions answered & plan of care reviewed with STEFANO Anna.
[2021-02-21 06:40] LABS: ALANINE AMINOTRANSFERASE 44 U/L (12-78); ALBUMIN 2.4 G/DL (3.4-5.0); ALBUMIN/GLOBULIN RATIO 0.6 (1.1-1.5); ALKALINE PHOSPHATASE 65 IU/L (46-116); ANION GAP 6 (8-16); ASPARTATE AMINO TRANSFERASE 18 U/L (10-37); BILIRUBIN,TOTAL 0.3 MG/DL (0.1-1.0); BLOOD UREA NITROGEN 16 MG/DL (7-18); BUN/CREATININE RATIO 29.6 (6.6-38.0); CALCIUM 8.6 MG/DL (8.5-10.1); CHLORIDE 104 MMOL/L (99-107); CREATININE 0.54 MG/DL (0.40-0.90); GLUCOSE 130 MG/DL (70-104); POTASSIUM 4.4 MMOL/L (3.5-5.1); SODIUM 139 MMOL/L (135-145); TOTAL CARBON DIOXIDE 29.3 MMOL/L (24-32); TOTAL PROTEIN 6.1 G/DL (6.4-8.2); eGFR > 90 ML/MIN
[2021-02-21 07:00] VITALS: BP 99/48
[2021-02-21] MEDS: lactose-reduced food (Ensure Enlive) - 237ml bottle PO SCH ×3 (08:00→18:00)
[2021-02-21] MEDS: aspirin 81mg tab.chew PO SCH (09:00)
[2021-02-21] MEDS: LORazepam 0.5 MG tablet PO PRN ×3 (09:00→20:37)
[2021-02-21] MEDS: lactobacillus rhamnosus 10,000 MMU CELLS/CAPSULE PO SCH ×2 (09:00→20:38)
[2021-02-21] MEDS: cholecalciferol (vitamin D3) 1,000 unit (25mcg) tablet PO SCH (09:00)
[2021-02-21] MEDS: gabapentin 300mg capsule PO SCH (09:00)
[2021-02-21] MEDS: methylPREDNISolone sod succ/PF 40mg inj. IV SCH (09:00)
[2021-02-21] MEDS: lurasidone 20mg tablet PO SCH (09:00)
[2021-02-21] MEDS: nystatin 15 GM powder TP SCH ×3 (09:01→20:38)
[2021-02-21] MEDS: enoxaparin 40mg/0.4ml syringe SUBCUT SCH ×2 (09:01→20:38)
[2021-02-21] MEDS: montelukast 10mg tablet PO SCH (09:01)
[2021-02-21] MEDS: buPROPion 100mg tablet PO SCH ×3 (09:01→20:37)
[2021-02-21] MEDS: sertraline 50mg tablet PO SCH (09:01)
[2021-02-21] MEDS: busPIRone 5mg tablet PO SCH ×2 (09:01→20:37)
[2021-02-21 11:00] VITALS: BP 120/50
--- NOTE | 2021-02-21 11:36 | NUR ---
Reassessment: Pt continues with moderate PO intake on pureed CHO controlled diet with thin liquids per ST recs at f/u BSS. Avg intake 42% of meals and 75% of ONS meeting needs. LBM 02/20 receiving routine miralax. No new nutrition intervention implemented at this time, will continue to monitor. Recommendations: 1) Continue pureed CHO controlled diet with thin liquids per ST recs 2) Ensure Enlive TIDWM; encourage PO 3) Bowel care per rx 4) consider NG nutrition if PO regresses given inadequate intake since admit 5) Scaled wt this admit; subsequent weekly scaled wts Addendum: 02/21/21 at [address] Amended: Links added.
--- NOTE | 2021-02-21 15:00 | NUR ---
Ti Addendum: 02/21/21 at 1503 by Shoshana Foley RN Titrated oxygen to 4L NC, patient sats 96% at rest. PT reported that during ambulation patient's O2 dropped to 83% and took 6L to recover.
--- NOTE | 2021-02-21 15:03 | NUR ---
Titrated oxygen to 4L NC, patient sats 96% at rest. PT reported that during ambulation patient's O2 dropped to 83% and took 6L to recover.
[2021-02-21 18:00] VITALS: BP 112/63
--- NOTE | 2021-02-21 18:22 | NUR ---
Problems reprioritized. Patient report given, questions answered & plan of care reviewed with Nuvia AGARWAL.
--- NOTE | 2021-02-21 18:23 | NUR ---
Patient in room PCU 3021. I have received report from STEFANO Anna and had the opportunity to ask questions and assume patient care.
[2021-02-21] MEDS: amitriptyline 25mg tablet PO SCH (20:37)
[2021-02-21] MEDS: polyethylene glycol 3350 17gm powd pack PO SCH (20:38)
[2021-02-21] MEDS: traZODone 50mg tablet PO SCH (20:38)
[2021-02-21] MEDS: chlorproMAZINE 25mg tablet PO SCH (20:39)
[2021-02-21] MEDS: insulin Lispro (HumaLOG) vial - multi-dose SQ SCH (20:46)
[2021-02-21 22:00] VITALS: BP 126/68
[2021-02-21] MEDS: insulin glargine (Lantus) pen - multi-dose SQ SCH (22:21)
[2021-02-21] MEDS: acetaminophen 325mg tablet PO PRN (23:55)
[2021-02-22 02:00] VITALS: BP 130/72
[2021-02-22] MEDS: ipratropium/albuterol 3ml nebule NEB SCH ×5 (03:08→20:44)
--- NOTE | 2021-02-22 06:30 | NUR ---
Problems reprioritized. Patient report given, questions answered & plan of care reviewed with Brinda.
[2021-02-22 07:00] VITALS: BP 103/59
--- NOTE | 2021-02-22 07:00 | NUR ---
Patient in room PCU 3021. I have received report from STEFANO Parry and had the opportunity to ask questions and assume patient care.
[2021-02-22 07:15] LABS: BASOPHILS % (AUTO) 0.8 % (0-1); EOSINOPHILS # (AUTO) 0.1 X10'3 (0-0.9); EOSINOPHILS % (AUTO) 1.6 % (0-6); HEMATOCRIT 31.1 % (35.0-45.0); HEMOGLOBIN 10.5 g/dl (12.0-16.0); LYMPHOCYTES # (AUTO) 1.3 X10'3 (1.1-4.8); LYMPHOCYTES % (AUTO) 19.9 % (21-51); MEAN CORPUSCULAR HEMOGLOBIN 31.4 PG (27.0-31.0); MEAN CORPUSCULAR HGB CONC 33.6 g/dL (33.0-36.5); MEAN CORPUSCULAR VOLUME 93.4 FL (78-98); MEAN PLATELET VOLUME 8.6 FL (7.4-10.4); MONOCYTES # (AUTO) 0.9 X10'3 (0-0.9); MONOCYTES % (AUTO) 13.5 % (2-12); NEUTROPHILS # (AUTO) 4.2 X10'3 (1.8-7.7); NEUTROPHILS % (AUTO) 64.2 % (42-75); PLATELET COUNT 302 X10'3 (140-440); RED BLOOD COUNT 3.33 X10'6 (4.20-5.60); RED CELL DISTRIBUTION WIDTH 15.9 % (11.5-14.5); WHITE BLOOD COUNT 6.5 X10'3 (4.5-11.0)
[2021-02-22] MEDS: lactose-reduced food (Ensure Enlive) - 237ml bottle PO SCH ×3 (08:00→18:13)
[2021-02-22 08:02] LABS: ALANINE AMINOTRANSFERASE 41 U/L (12-78); ALBUMIN 2.4 G/DL (3.4-5.0); ALBUMIN/GLOBULIN RATIO 0.6 (1.1-1.5); ALKALINE PHOSPHATASE 67 IU/L (46-116); ANION GAP 7 (8-16); ASPARTATE AMINO TRANSFERASE 17 U/L (10-37); BILIRUBIN,TOTAL 0.3 MG/DL (0.1-1.0); BLOOD UREA NITROGEN 17 MG/DL (7-18); BUN/CREATININE RATIO 30.4 (6.6-38.0); CHLORIDE 105 MMOL/L (99-107); CREATININE 0.56 MG/DL (0.40-0.90); GLUCOSE 138 MG/DL (70-104); POTASSIUM 3.8 MMOL/L (3.5-5.1); SODIUM 142 MMOL/L (135-145); TOTAL PROTEIN 6.2 G/DL (6.4-8.2); eGFR > 90 ML/MIN
--- NOTE | 2021-02-22 09:55 | NUR ---
Paged RT Re Diego Arndt [phone] Pt is needing RT treatment please. Thank you Melania [phone]
[2021-02-22] MEDS: montelukast 10mg tablet PO SCH (09:56)
[2021-02-22] MEDS: aspirin 81mg tab.chew PO SCH (09:57)
[2021-02-22] MEDS: buPROPion 100mg tablet PO SCH ×3 (09:57→22:03)
[2021-02-22] MEDS: cholecalciferol (vitamin D3) 1,000 unit (25mcg) tablet PO SCH (09:57)
[2021-02-22] MEDS: lurasidone 20mg tablet PO SCH (09:57)
[2021-02-22] MEDS: busPIRone 5mg tablet PO SCH ×2 (09:57→20:08)
[2021-02-22] MEDS: lactobacillus rhamnosus 10,000 MMU CELLS/CAPSULE PO SCH ×2 (09:57→20:08)
[2021-02-22] MEDS: methylPREDNISolone sod succ/PF 40mg inj. IV SCH (09:58)
[2021-02-22] MEDS: nystatin 15 GM powder TP SCH ×3 (09:58→22:04)
[2021-02-22] MEDS: enoxaparin 40mg/0.4ml syringe SUBCUT SCH (09:58)
[2021-02-22] MEDS: sertraline 50mg tablet PO SCH (09:58)
[2021-02-22] MEDS: gabapentin 300mg capsule PO SCH (09:58)
[2021-02-22] MEDS: insulin Lispro (HumaLOG) vial - multi-dose SQ SCH ×3 (10:10→20:05)
[2021-02-22 11:00] VITALS: BP 129/72
[2021-02-22 15:00] VITALS: BP 117/69
--- NOTE | 2021-02-22 18:22 | NUR ---
Problems reprioritized. Patient report given, questions answered & plan of care reviewed with STEFANO Keller. Pt sitting up eating dinner at change of shift. No signs of distress noted, all pt needs met at this time.
[2021-02-22 18:30] VITALS: BP 128/76
[2021-02-22 22:00] VITALS: BP 133/81
[2021-02-22] MEDS: traZODone 50mg tablet PO SCH (22:03)
[2021-02-22] MEDS: amitriptyline 25mg tablet PO SCH (22:03)
[2021-02-22] MEDS: chlorproMAZINE 25mg tablet PO SCH (22:03)
[2021-02-22] MEDS: polyethylene glycol 3350 17gm powd pack PO SCH (22:04)
[2021-02-22] MEDS: insulin glargine (Lantus) pen - multi-dose SQ SCH (22:13)
[2021-02-23] MEDS: ipratropium/albuterol 3ml nebule NEB SCH ×7 (00:01→23:00)
[2021-02-23 02:00] VITALS: BP 120/68
[2021-02-23 06:15] LABS: BASOPHILS % (AUTO) 0.7 % (0-1); EOSINOPHILS # (AUTO) 0.1 X10'3 (0-0.9); EOSINOPHILS % (AUTO) 1.9 % (0-6); HEMATOCRIT 31.1 % (35.0-45.0); HEMOGLOBIN 10.6 g/dl (12.0-16.0); LYMPHOCYTES # (AUTO) 1.3 X10'3 (1.1-4.8); LYMPHOCYTES % (AUTO) 19.2 % (21-51); MEAN CORPUSCULAR HEMOGLOBIN 31.5 PG (27.0-31.0); MEAN CORPUSCULAR HGB CONC 34.1 g/dL (33.0-36.5); MEAN CORPUSCULAR VOLUME 92.4 FL (78-98); MEAN PLATELET VOLUME 8.4 FL (7.4-10.4); MONOCYTES # (AUTO) 0.8 X10'3 (0-0.9); MONOCYTES % (AUTO) 12.2 % (2-12); NEUTROPHILS # (AUTO) 4.4 X10'3 (1.8-7.7); PLATELET COUNT 286 X10'3 (140-440); RED BLOOD COUNT 3.36 X10'6 (4.20-5.60); RED CELL DISTRIBUTION WIDTH 15.8 % (11.5-14.5); WHITE BLOOD COUNT 6.6 X10'3 (4.5-11.0)
--- NOTE | 2021-02-23 06:18 | NUR ---
Patient in room PCU 3021. I have received report from STEFANO Dejesus and had the opportunity to ask questions and assume patient care.
[2021-02-23 07:00] VITALS: BP 113/63
[2021-02-23 07:39] LABS: ALANINE AMINOTRANSFERASE 45 U/L (12-78); ALBUMIN 2.4 G/DL (3.4-5.0); ALBUMIN/GLOBULIN RATIO 0.7 (1.1-1.5); ALKALINE PHOSPHATASE 63 IU/L (46-116); ANION GAP 7 (8-16); ASPARTATE AMINO TRANSFERASE 18 U/L (10-37); BILIRUBIN,TOTAL 0.3 MG/DL (0.1-1.0); BLOOD UREA NITROGEN 14 MG/DL (7-18); CALCIUM 8.5 MG/DL (8.5-10.1); CHLORIDE 104 MMOL/L (99-107); GLUCOSE 112 MG/DL (70-104); POTASSIUM 3.7 MMOL/L (3.5-5.1); SODIUM 141 MMOL/L (135-145); TOTAL CARBON DIOXIDE 30.4 MMOL/L (24-32); eGFR > 90 ML/MIN
[2021-02-23] MEDS: lactose-reduced food (Ensure Enlive) - 237ml bottle PO SCH ×3 (08:00→18:00)
[2021-02-23] MEDS: lurasidone 20mg tablet PO SCH (08:53)
[2021-02-23] MEDS: busPIRone 5mg tablet PO SCH ×2 (08:53→20:00)
[2021-02-23] MEDS: montelukast 10mg tablet PO SCH (08:53)
[2021-02-23] MEDS: lactobacillus rhamnosus 10,000 MMU CELLS/CAPSULE PO SCH ×2 (08:53→20:01)
[2021-02-23] MEDS: buPROPion 100mg tablet PO SCH ×3 (08:53→20:01)
[2021-02-23] MEDS: gabapentin 300mg capsule PO SCH (08:53)
[2021-02-23] MEDS: cholecalciferol (vitamin D3) 1,000 unit (25mcg) tablet PO SCH (08:53)
[2021-02-23] MEDS: aspirin 81mg tab.chew PO SCH (08:53)
[2021-02-23] MEDS: enoxaparin 40mg/0.4ml syringe SUBCUT SCH (08:54)
[2021-02-23] MEDS: methylPREDNISolone sod succ/PF 40mg inj. IV SCH (08:54)
[2021-02-23] MEDS: sertraline 50mg tablet PO SCH (08:54)
[2021-02-23] MEDS: normal saline 1000ml 1,000 ML IV SCH (08:55)
[2021-02-23] MEDS: nystatin 15 GM powder TP SCH ×3 (08:55→21:15)
[2021-02-23] MEDS: insulin Lispro (HumaLOG) vial - multi-dose SQ SCH (09:00)
[2021-02-23] MEDS: HYDROcodone/acetaminophen 5mg/325mg tablet PO PRN (09:11)
[2021-02-23 11:00] VITALS: BP 131/71
--- NOTE | 2021-02-23 13:12 | NUR ---
O2 Sat at rest on room air:__88_% If below 89%: Recovery O2 Sat at rest on __3_LPM: via nasal cannula (mask/nasal cannula, etc..) No further documentation is necessary. If O2 Sat did not drop below 89% on room air,ambulate patient on room air. O2 Sat while ambulating on room air:___% Recovery O2 Sat while ambulating on ___LPM:___% No further documentation is necessary. If patient does not drop below 89% while ambulating, he/she does not qualify for home O2.
[2021-02-23 15:00] VITALS: BP 100/48
--- NOTE | 2021-02-23 18:40 | NUR ---
Problems reprioritized. Patient report given, questions answered & plan of care reviewed with STEFANO Jarquin. Pt sitting up visiting with family. All pt needs met at change of shift.
[2021-02-23 19:00] VITALS: BP 122/67
[2021-02-23] MEDS: chlorproMAZINE 25mg tablet PO SCH (20:00)
[2021-02-23] MEDS: traZODone 50mg tablet PO SCH (20:00)
[2021-02-23] MEDS: amitriptyline 25mg tablet PO SCH (20:01)
[2021-02-23] MEDS: insulin glargine (Lantus) pen - multi-dose SQ SCH (20:59)
[2021-02-23] MEDS: LORazepam 0.5 MG tablet PO PRN (21:07)
[2021-02-23 22:00] VITALS: BP 127/74
[2021-02-24 02:00] VITALS: BP 124/85
[2021-02-24] MEDS: ipratropium/albuterol 3ml nebule NEB SCH ×3 (02:27→11:05)
--- NOTE | 2021-02-24 06:19 | NUR ---
Patient in room PCU 3021. I have received report from STEFANO Jarquin and had the opportunity to ask questions and assume patient care.
[2021-02-24 07:02] LABS: BASOPHILS % (AUTO) 0.5 % (0-1); EOSINOPHILS # (AUTO) 0.2 X10'3 (0-0.9); EOSINOPHILS % (AUTO) 3.4 % (0-6); HEMATOCRIT 32.8 % (35.0-45.0); HEMOGLOBIN 11.2 g/dl (12.0-16.0); LYMPHOCYTES # (AUTO) 1.5 X10'3 (1.1-4.8); LYMPHOCYTES % (AUTO) 21.8 % (21-51); MEAN CORPUSCULAR HEMOGLOBIN 31.4 PG (27.0-31.0); MEAN CORPUSCULAR HGB CONC 34.1 g/dL (33.0-36.5); MEAN CORPUSCULAR VOLUME 92.2 FL (78-98); MEAN PLATELET VOLUME 8.4 FL (7.4-10.4); MONOCYTES # (AUTO) 0.8 X10'3 (0-0.9); MONOCYTES % (AUTO) 11.3 % (2-12); NEUTROPHILS # (AUTO) 4.4 X10'3 (1.8-7.7); PLATELET COUNT 284 X10'3 (140-440); RED BLOOD COUNT 3.55 X10'6 (4.20-5.60); WHITE BLOOD COUNT 6.9 X10'3 (4.5-11.0)
[2021-02-24 07:30] LABS: ALANINE AMINOTRANSFERASE 59 U/L (12-78); ALBUMIN 2.5 G/DL (3.4-5.0); ALBUMIN/GLOBULIN RATIO 0.7 (1.1-1.5); ALKALINE PHOSPHATASE 82 IU/L (46-116); ANION GAP 2 (8-16); ASPARTATE AMINO TRANSFERASE 21 U/L (10-37); BILIRUBIN,TOTAL 0.2 MG/DL (0.1-1.0); BLOOD UREA NITROGEN 17 MG/DL (7-18); BUN/CREATININE RATIO 32.1 (6.6-38.0); CALCIUM 8.8 MG/DL (8.5-10.1); CHLORIDE 105 MMOL/L (99-107); CREATININE 0.53 MG/DL (0.40-0.90); GLUCOSE 132 MG/DL (70-104); POTASSIUM 3.8 MMOL/L (3.5-5.1); SODIUM 139 MMOL/L (135-145); TOTAL CARBON DIOXIDE 31.8 MMOL/L (24-32); TOTAL PROTEIN 6.3 G/DL (6.4-8.2); eGFR > 90 ML/MIN
[2021-02-24 07:31] VITALS: BP 93/56
[2021-02-24] MEDS: montelukast 10mg tablet PO SCH (08:00)
[2021-02-24] MEDS: busPIRone 5mg tablet PO SCH (08:00)
[2021-02-24] MEDS: buPROPion 100mg tablet PO SCH (08:00)
[2021-02-24] MEDS: cholecalciferol (vitamin D3) 1,000 unit (25mcg) tablet PO SCH (08:00)
[2021-02-24] MEDS: nystatin 15 GM powder TP SCH ×2 (08:00→13:28)
[2021-02-24] MEDS: sertraline 50mg tablet PO SCH (08:00)
[2021-02-24] MEDS: gabapentin 300mg capsule PO SCH (08:00)
[2021-02-24] MEDS: lurasidone 20mg tablet PO SCH (08:00)
[2021-02-24] MEDS: lactobacillus rhamnosus 10,000 MMU CELLS/CAPSULE PO SCH (08:00)
[2021-02-24] MEDS: lactose-reduced food (Ensure Enlive) - 237ml bottle PO SCH ×2 (08:00→13:28)
[2021-02-24] MEDS ORDERED: IPRA3AMP9 NEB ×2 (08:17)
[2021-02-24] MEDS ORDERED: ALBU6.7H9 IH ×2 (08:17)
[2021-02-24] MEDS: aspirin 81mg tab.chew PO SCH (08:30)
[2021-02-24] MEDS: enoxaparin 40mg/0.4ml syringe SUBCUT SCH (09:36)
[2021-02-24] MEDS: methylPREDNISolone sod succ/PF 40mg inj. IV SCH (09:37)
[2021-02-24] MEDS: insulin Lispro (HumaLOG) vial - multi-dose SQ SCH (09:53)
--- NOTE | 2021-02-24 13:35 | NUR ---
No lunchtime insulin coverage administered d/t pt had an unknown number of carbs. no s/sx of hyperglycemia evident. CBG is 127 ac. Will continue to monitor per provider orders.
--- NOTE | 2021-02-24 14:45 | NUR ---
Patient stable for discharge per MD orders. PIV discontinued intact. Telemetry monitoring equipment removed and returned to telemetry office. All belongings gathered and sent with patient. All instructions reviewed with patient and son, who were given the opportunity to ask questions. All questions answered and both expressed good understanding of discharge instructions. 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
== END 2021-02-24 15:06 | disposition home health service (06) | DRG 137 ==
LOC: ER 12:27 → ORTHO 4S 20:02 → ER 01-17 02:26 → ORTHO 4S 01-17 02:27 → UNDOADMIN 01-17 02:27 → ORTHO 4S 01-17 15:36 → PCU 3S 02-14 16:48
PROVIDERS: ADMIT Family Medicine; ATTEND Family Medicine
PROC: XW033E5 Introduction of Remdesivir Anti-infective into Peripheral Vein, Percutaneous Approach, New Technology Group 5 (ICD-10-PCS; principal; 2021-01-16)
PROC: 5A0935A Assistance with Respiratory Ventilation, Less than 24 Consecutive Hours, High Flow/Velocity Cannula (ICD-10-PCS; 2021-01-16)
PROC: B32T1ZZ Computerized Tomography (CT Scan) of Left Pulmonary Artery using Low Osmolar Contrast (ICD-10-PCS; 2021-01-16)
PROC: B3201ZZ Computerized Tomography (CT Scan) of Thoracic Aorta using Low Osmolar Contrast (ICD-10-PCS; 2021-01-16)
PROC: B32S1ZZ Computerized Tomography (CT Scan) of Right Pulmonary Artery using Low Osmolar Contrast (ICD-10-PCS; 2021-01-16)
PROC: 5A0945A Assistance with Respiratory Ventilation, 24-96 Consecutive Hours, High Flow/Velocity Cannula (ICD-10-PCS; 2021-01-17)
PROC: 5A0945A Assistance with Respiratory Ventilation, 24-96 Consecutive Hours, High Flow/Velocity Cannula (ICD-10-PCS; 2021-01-20)
PROC: 5A0945A Assistance with Respiratory Ventilation, 24-96 Consecutive Hours, High Flow/Velocity Cannula (ICD-10-PCS; 2021-01-22)
PROC: 5A0945A Assistance with Respiratory Ventilation, 24-96 Consecutive Hours, High Flow/Velocity Cannula (ICD-10-PCS; 2021-01-25)
PROC: 5A0945A Assistance with Respiratory Ventilation, 24-96 Consecutive Hours, High Flow/Velocity Cannula (ICD-10-PCS; 2021-01-29)
PROC: 5A0945A Assistance with Respiratory Ventilation, 24-96 Consecutive Hours, High Flow/Velocity Cannula (ICD-10-PCS; 2021-02-01)
PROC: 5A09357 Assistance with Respiratory Ventilation, Less than 24 Consecutive Hours, Continuous Positive Airway Pressure (ICD-10-PCS; 2021-02-04)
PROC: 5A0945A Assistance with Respiratory Ventilation, 24-96 Consecutive Hours, High Flow/Velocity Cannula (ICD-10-PCS; 2021-02-04)
PROC: 5A09357 Assistance with Respiratory Ventilation, Less than 24 Consecutive Hours, Continuous Positive Airway Pressure (ICD-10-PCS; 2021-02-08)
PROC: 5A0945A Assistance with Respiratory Ventilation, 24-96 Consecutive Hours, High Flow/Velocity Cannula (ICD-10-PCS; 2021-02-09)
PROC: 5A09357 Assistance with Respiratory Ventilation, Less than 24 Consecutive Hours, Continuous Positive Airway Pressure (ICD-10-PCS; 2021-02-11)
PROC: 5A0945A Assistance with Respiratory Ventilation, 24-96 Consecutive Hours, High Flow/Velocity Cannula (ICD-10-PCS; 2021-02-12)
PROC: 5A0955A Assistance with Respiratory Ventilation, Greater than 96 Consecutive Hours, High Flow/Velocity Cannula (ICD-10-PCS; 2021-02-14)
DX: U07.1 COVID-19 (principal); A41.52 Sepsis due to Pseudomonas; J96.01 Acute respiratory failure with hypoxia; J12.82 Pneumonia due to coronavirus disease 2019; E11.649 Type 2 diabetes mellitus with hypoglycemia without coma; E87.2 Acidosis; N39.0 Urinary tract infection, site not specified; I95.9 Hypotension, unspecified; E11.40 Type 2 diabetes mellitus with diabetic neuropathy, unspecified; B96.20 Unspecified Escherichia coli [E. coli] as the cause of diseases classified elsewhere; F32.9 Major depressive disorder, single episode, unspecified; G89.29 Other chronic pain; K21.9 Gastro-esophageal reflux disease without esophagitis; F41.1 Generalized anxiety disorder; M19.90 Unspecified osteoarthritis, unspecified site; M54.9 Dorsalgia, unspecified; M79.606 Pain in leg, unspecified; E66.01 Morbid (severe) obesity due to excess calories; E86.9 Volume depletion, unspecified; J45.909 Unspecified asthma, uncomplicated; M81.0 Age-related osteoporosis without current pathological fracture; Z79.82 Long term (current) use of aspirin; Z79.84 Long term (current) use of oral hypoglycemic drugs; Z79.899 Other long term (current) drug therapy; Z80.3 Family history of malignant neoplasm of breast; Z83.3 Family history of diabetes mellitus; Z86.718 Personal history of other venous thrombosis and embolism; Z68.24 Body mass index [BMI] 24.0-24.9, adult; Z98.891 History of uterine scar from previous surgery
CPT/HCPCS: 36415; 36600; 71045; 71046; 71275; 74018; 76937; 80048; 80053; 81001; 82803; 82948; 83036; 83605; 84145; 85018; 85025; 85379; 85610; 86140; 87040; 87077; 87081; 87088; 87186; 87635; 92508; 92616; 93005; 93970; 94640; 94660; 94760; 94799; 97110; 97112; 97116; 97162; 97530; 97535; 99291; C9803; G0378; J0456; J0692; J0696; J1100; J1650; J1815; J2060; J2270; J2405; J2543; J2920; J2930; J7030; J7040; J7042; J7050; Q0161; Q9967

== ENCOUNTER 2021-03-06 13:42 | Inpatient (IN) | payer MEDICAID ==
[~2021-03-06] VITALS: Ht 157.5 cm; Wt 72.6 kg
[~2021-03-06 13:42] MED LIST changes: +ALBU6.7H9 IH; -ALBU6.7H9 INH; +ALEN70TA80 PO; +AMIT25TA10 PO; -AMIT25TA9 PO; +ASPI-611 PO; -BUPR150T13 PO; +BUPR300T53 PO; +BUSP10TA10 PO; +CHLO100T16 PO; +CHOL20004 PO; -CYCL-1 PO; -ENOX100S3 SQ; -FLUC200T PO; -GABA-532 PO; +GABA300C PO; +GLIM2TAB6 PO; -HYDR-4353 PO; -HYDR-4383 PO; +IPRA3AMP9 NEB; -LORA0.5T PO; +LURA20TA PO; -MAGN400C PO; +METF-438 PO; -METH4TAB3 PO; -ONDA4TAB6 PO; -PANT-47 PO; -POLY119P2 PO; -PROC10TA10 PO; +SERT-433 PO; -SIME80TA16 PO; -SUCR1ORA12 PO; +TRAZ-256 PO
[2021-03-06 14:56] LABS: BASOPHILS % (AUTO) 0.6 % (0-1); EOSINOPHILS # (AUTO) 0.3 X10'3 (0-0.9); EOSINOPHILS % (AUTO) 3.6 % (0-6); HEMATOCRIT 33.7 % (35.0-45.0); HEMOGLOBIN 11.5 g/dl (12.0-16.0); LYMPHOCYTES # (AUTO) 2.1 X10'3 (1.1-4.8); LYMPHOCYTES % (AUTO) 24.3 % (21-51); MEAN CORPUSCULAR HEMOGLOBIN 31.1 PG (27.0-31.0); MEAN CORPUSCULAR HGB CONC 34.2 g/dL (33.0-36.5); MEAN CORPUSCULAR VOLUME 91.1 FL (78-98); MEAN PLATELET VOLUME 8.1 FL (7.4-10.4); MONOCYTES # (AUTO) 0.7 X10'3 (0-0.9); MONOCYTES % (AUTO) 7.5 % (2-12); NEUTROPHILS # (AUTO) 5.6 X10'3 (1.8-7.7); PLATELET COUNT 323 X10'3 (140-440); RED CELL DISTRIBUTION WIDTH 15.3 % (11.5-14.5); WHITE BLOOD COUNT 8.8 X10'3 (4.5-11.0)
[2021-03-06 15:10] LABS: ALANINE AMINOTRANSFERASE 39 U/L (12-78); ALBUMIN 2.6 G/DL (3.4-5.0); ALBUMIN/GLOBULIN RATIO 0.6 (1.1-1.5); ALKALINE PHOSPHATASE 99 IU/L (46-116); ANION GAP 8 (8-16); ASPARTATE AMINO TRANSFERASE 18 U/L (10-37); BILIRUBIN,TOTAL 0.4 MG/DL (0.1-1.0); BLOOD UREA NITROGEN 11 MG/DL (7-18); BUN/CREATININE RATIO 19.6 (6.6-38.0); CALCIUM 8.5 MG/DL (8.5-10.1); CHLORIDE 102 MMOL/L (99-107); CREATININE 0.56 MG/DL (0.40-0.90); GLUCOSE 119 MG/DL (70-104); POTASSIUM 3.9 MMOL/L (3.5-5.1); SODIUM 139 MMOL/L (135-145); TOTAL CARBON DIOXIDE 29.2 MMOL/L (24-32); TOTAL PROTEIN 7.3 G/DL (6.4-8.2); eGFR > 90 ML/MIN
[2021-03-06] MEDS ORDERED: iohexol 350MG/ML 100ml bottle IV ONE (15:46)
[2021-03-06] MEDS ORDERED: acetaminophen 325mg tablet PO ONE (15:55)
[2021-03-06] MEDS ORDERED: MESSAGE TO NURSING PO ONE (17:10)
[2021-03-06] MEDS ORDERED: heparin 10,000 units/1 ML INJ IV ONE ×3 (17:50→19:50)
[2021-03-06 18:05] LABS: PARTIAL THROMBOPLASTIN TIME 30 SECONDS (22-32)
[2021-03-06] MEDS ORDERED: heparin 10,000 units/1 ML INJ IV PRN (19:15)
[2021-03-06] MEDS ORDERED: methylPREDNISolone sod succ 125mg/2ml vial IV ONE (19:20)
[2021-03-06] MEDS: heparin 25,000 UNIT/250ml bag 250 ML IV SCH (19:59)
[2021-03-06] MEDS ORDERED: magnesium 2GM in 50ml NS 50 ML IV PRN (20:10)
[2021-03-06] MEDS ORDERED: potassium Cl 40MEQ/1/2NS 520ml 520 ML IV PRN ×2 (20:10)
[2021-03-06] MEDS ORDERED: magnesium 4gm in 100ml NS 100 ML IV PRN (20:10)
[2021-03-06] MEDS ORDERED: potassium Cl 20 mEq SR tablet PO PRN ×2 (20:10)
[2021-03-06] MEDS ORDERED: acetaminophen 325mg tablet PO PRN (20:10)
[2021-03-06] MEDS ORDERED: magnesium Cl slow-release 64mg tablet PO PRN (20:10)
[2021-03-06] MEDS ORDERED: PERFLUTREN PROTEIN-A MICROSPHR (Optison) 0.22 MG/ML 3ML VIAL IV ONE (20:10)
[2021-03-06] MEDS ORDERED: ondansetron/PF 4mg/2ml inj IV PRN (20:10)
[2021-03-06] MEDS ORDERED: heparin 25,000 UNIT/250ml bag 250 ML IV SCH (20:15)
[2021-03-06] MEDS ORDERED: ALBU8.5H17 INH (20:47)
[2021-03-07 03:05] LABS: BASOPHILS % (AUTO) 0.4 % (0-1); EOSINOPHILS % (AUTO) 0.1 % (0-6); HEMATOCRIT 34.2 % (35.0-45.0); HEMOGLOBIN 11.5 g/dl (12.0-16.0); LYMPHOCYTES # (AUTO) 0.8 X10'3 (1.1-4.8); LYMPHOCYTES % (AUTO) 9.8 % (21-51); MEAN CORPUSCULAR HEMOGLOBIN 30.6 PG (27.0-31.0); MEAN CORPUSCULAR HGB CONC 33.7 g/dL (33.0-36.5); MEAN CORPUSCULAR VOLUME 90.8 FL (78-98); MEAN PLATELET VOLUME 8.1 FL (7.4-10.4); MONOCYTES # (AUTO) 0.1 X10'3 (0-0.9); MONOCYTES % (AUTO) 1.5 % (2-12); NEUTROPHILS # (AUTO) 7.6 X10'3 (1.8-7.7); NEUTROPHILS % (AUTO) 88.2 % (42-75); PLATELET COUNT 327 X10'3 (140-440); RED BLOOD COUNT 3.77 X10'6 (4.20-5.60); RED CELL DISTRIBUTION WIDTH 15.2 % (11.5-14.5); WHITE BLOOD COUNT 8.6 X10'3 (4.5-11.0)
[2021-03-07 03:21] LABS: ALBUMIN 2.6 G/DL (3.4-5.0); ANION GAP 8 (8-16); BLOOD UREA NITROGEN 10 MG/DL (7-18); BUN/CREATININE RATIO 18.5 (6.6-38.0); CALCIUM 8.3 MG/DL (8.5-10.1); CHLORIDE 101 MMOL/L (99-107); CREATININE 0.54 MG/DL (0.40-0.90); GLUCOSE 288 MG/DL (70-104); MAGNESIUM 1.8 MG/DL (1.5-2.4); POTASSIUM 4.5 MMOL/L (3.5-5.1); SODIUM 138 MMOL/L (135-145); eGFR > 90 ML/MIN
--- NOTE | 2021-03-07 05:21 | NUR ---
pt stating she has a new onset of numbness in her fingers. going to contact the hospitalist with findings.
[2021-03-07] MEDS ORDERED: dextrose 50%-water 50ml dispensing syringe IV PRN ×2 (06:10)
[2021-03-07] MEDS ORDERED: glucagon, human recombinant 1mg kit SUBCUT PRN (06:10)
[2021-03-07] MEDS ORDERED: dextrose ORAL solution 15 GM/59 ML bottle PO PRN ×2 (06:10)
[2021-03-07] MEDS ORDERED: MESSAGE TO PHARMACY PO ONE (06:10)
--- NOTE | 2021-03-07 07:08 | NUR ---
PT SPEAKS NO CZECH, WOLOF ONLY. JENIECE AT BEDSIDE TO INTERPRET. PT HAS NO PAIN, BUT WILL NEED ASST TO BSC WHEN NEEDED.
[2021-03-07] MEDS: K and/or MAG REPLACEMENT MC SCH ×2 (07:27→20:00)
--- NOTE | 2021-03-07 08:00 | NUR ---
milton browning [phone]. lives in [facility] [place]
[2021-03-07] MEDS ORDERED: ALBUTEROL INHALER 1 PUFF/90 MCG INHALER IH PRN (09:25)
[2021-03-07 10:16] LABS: PARTIAL THROMBOPLASTIN TIME 71 SECONDS (22-32)
--- NOTE | 2021-03-07 10:16 | NUR ---
LAB CALLED PTT 71.
[2021-03-07] MEDS: insulin Lispro (HumaLOG) vial - multi-dose SQ SCH (11:58)
[2021-03-07] MEDS: cholecalciferol (vitamin D3) 1,000 unit (25mcg) tablet PO SCH (12:00)
[2021-03-07] MEDS: buPROPion SR 150mg tablet PO SCH ×2 (12:00→19:23)
[2021-03-07] MEDS: aspirin 81mg, enteric-coated 1 TAB TABLET.DR PO SCH (12:01)
[2021-03-07] MEDS: lurasidone 20mg tablet PO SCH (12:01)
[2021-03-07] MEDS: busPIRone 5mg tablet PO SCH ×2 (12:01→19:23)
[2021-03-07] MEDS: sertraline 50mg tablet PO SCH (12:01)
[2021-03-07] MEDS: gabapentin 300mg capsule PO SCH (12:02)
[2021-03-07] MEDS: heparin 25,000 UNIT/250ml bag 250 ML IV SCH (14:22)
[2021-03-07 14:41] LABS: PARTIAL THROMBOPLASTIN TIME 52 SECONDS (22-32)
--- NOTE | 2021-03-07 16:00 | NUR ---
pt arrived to the unit by stretcher with RN and tech
[2021-03-07 18:00] VITALS: BP 136/70
--- NOTE | 2021-03-07 18:41 | NUR ---
Patient in room PCU 3025. I have received report from STEFANO Milligan and had the opportunity to ask questions and assume patient care.
--- NOTE | 2021-03-07 19:00 | NUR ---
Pt tray was removed and the dinner tag was not filled out laying on the bedside table.
[2021-03-07] MEDS: chlorproMAZINE 25mg tablet PO SCH (20:25)
[2021-03-07] MEDS: amitriptyline 25mg tablet PO SCH (20:26)
[2021-03-07] MEDS: traZODone 50mg tablet PO SCH (20:27)
[2021-03-07 21:36] LABS: PARTIAL THROMBOPLASTIN TIME 62 SECONDS (22-32)
[2021-03-07] MEDS: insulin glargine (Lantus) pen - multi-dose SQ SCH (21:43)
[2021-03-07 22:00] VITALS: BP 116/64
[2021-03-07] MEDS ORDERED: acetaminophen 325mg tablet PO PRN (23:40)
--- NOTE | 2021-03-08 00:20 | NUR ---
Pt PTT was 62. Therapeutic range no rate change at this time continued rate of 1350 ml/hr.
[2021-03-08 02:00] VITALS: BP 91/56
[2021-03-08 03:48] LABS: BASOPHILS # (AUTO) 0.1 X10'3 (0-0.2); BASOPHILS % (AUTO) 1.4 % (0-1); EOSINOPHILS # (AUTO) 0.4 X10'3 (0-0.9); EOSINOPHILS % (AUTO) 4.8 % (0-6); HEMATOCRIT 30.8 % (35.0-45.0); HEMOGLOBIN 10.5 g/dl (12.0-16.0); LYMPHOCYTES # (AUTO) 2.2 X10'3 (1.1-4.8); LYMPHOCYTES % (AUTO) 28.8 % (21-51); MEAN CORPUSCULAR HEMOGLOBIN 30.9 PG (27.0-31.0); MEAN CORPUSCULAR HGB CONC 34.1 g/dL (33.0-36.5); MEAN CORPUSCULAR VOLUME 90.8 FL (78-98); MEAN PLATELET VOLUME 8.1 FL (7.4-10.4); MONOCYTES # (AUTO) 0.7 X10'3 (0-0.9); MONOCYTES % (AUTO) 9.7 % (2-12); NEUTROPHILS # (AUTO) 4.2 X10'3 (1.8-7.7); NEUTROPHILS % (AUTO) 55.3 % (42-75); PLATELET COUNT 375 X10'3 (140-440); RED BLOOD COUNT 3.39 X10'6 (4.20-5.60); RED CELL DISTRIBUTION WIDTH 15.2 % (11.5-14.5); WHITE BLOOD COUNT 7.6 X10'3 (4.5-11.0)
[2021-03-08 03:56] LABS: ALBUMIN 2.5 G/DL (3.4-5.0); ANION GAP 6 (8-16); BLOOD UREA NITROGEN 10 MG/DL (7-18); BUN/CREATININE RATIO 18.5 (6.6-38.0); CHLORIDE 103 MMOL/L (99-107); CREATININE 0.54 MG/DL (0.40-0.90); GLUCOSE 172 MG/DL (70-104); MAGNESIUM 1.6 MG/DL (1.5-2.4); POTASSIUM 3.5 MMOL/L (3.5-5.1); SODIUM 140 MMOL/L (135-145); TOTAL CARBON DIOXIDE 31.1 MMOL/L (24-32); eGFR > 90 ML/MIN
--- NOTE | 2021-03-08 04:22 | NUR ---
Stopped pt heparin drip at 0258 to draw labs and restarted at 0338. Pt was a hard stick and it took some time to get the draw. Pt DVT-PTT was 45 no rate change at this time. Rate is still 1350 units/hr
[2021-03-08 06:00] VITALS: BP 106/54
--- NOTE | 2021-03-08 06:29 | NUR ---
Problems reprioritized. Patient report given, questions answered & plan of care reviewed with STEFANO Sparks.
[2021-03-08] MEDS: K and/or MAG REPLACEMENT MC SCH ×2 (08:00→20:00)
[2021-03-08] MEDS: sertraline 50mg tablet PO SCH (08:55)
[2021-03-08] MEDS: gabapentin 300mg capsule PO SCH (08:55)
[2021-03-08] MEDS: aspirin 81mg, enteric-coated 1 TAB TABLET.DR PO SCH (08:55)
[2021-03-08] MEDS: busPIRone 5mg tablet PO SCH ×2 (08:55→20:12)
[2021-03-08] MEDS: buPROPion SR 150mg tablet PO SCH ×2 (08:55→20:08)
[2021-03-08] MEDS: cholecalciferol (vitamin D3) 1,000 unit (25mcg) tablet PO SCH (08:56)
[2021-03-08] MEDS: lurasidone 20mg tablet PO SCH (08:57)
--- NOTE | 2021-03-08 09:38 | NUR ---
Noted pt with low Donovan of 12. Per physical assessment pt with no edema and a rash to buttocks. Skin intact per RN skin assessment. Noted pt with T2DM with A1c 7.8% 01/18 per EMR, pt provided with DM education and RD contact information at last admit 02/17. Will remain available. Addendum: 03/08/21 at [address] Amended: Links added.
[2021-03-08] MEDS: insulin Lispro (HumaLOG) vial - multi-dose SQ SCH (10:41)
[2021-03-08 11:00] VITALS: BP 112/56
[2021-03-08] MEDS: heparin 25,000 UNIT/250ml bag 250 ML IV SCH (12:38)
[2021-03-08 15:00] VITALS: BP 112/56
--- NOTE | 2021-03-08 18:30 | NUR ---
Received pt in bed AAOx4 family at bedside for support. Heparin infusing to the left AC. Med infusing well but request to removed line and stated that it is painful when bend her arm. Pt encouraged to keep her hand straight. Will reassess line later.
--- NOTE | 2021-03-08 19:00 | NUR ---
New med lock placed to left forearm, line patent with good blood return.
[2021-03-08 19:27] VITALS: BP 135/66
--- NOTE | 2021-03-08 20:00 | NUR ---
redness noted to perineal area. skin barrier applied
[2021-03-08] MEDS: traZODone 50mg tablet PO SCH (20:12)
[2021-03-08] MEDS: chlorproMAZINE 25mg tablet PO SCH (20:12)
[2021-03-08] MEDS: amitriptyline 25mg tablet PO SCH (20:13)
--- NOTE | 2021-03-08 20:50 | NUR ---
Heparin drip placed on hold pending lab draw.
[2021-03-08] MEDS: insulin glargine (Lantus) pen - multi-dose SQ SCH (21:11)
--- NOTE | 2021-03-08 21:20 | NUR ---
heparin infusion drips restarted.
[2021-03-08 22:00] VITALS: BP 141/76
[2021-03-08] MEDS ORDERED: LORazepam 0.5 MG tablet PO PRN (23:15)
[2021-03-09 02:00] VITALS: BP 148/82
[2021-03-09] MEDS: heparin 25,000 UNIT/250ml bag 250 ML IV SCH ×2 (03:19→08:52)
--- NOTE | 2021-03-09 03:33 | NUR ---
Pt transferred to bed from chair. PTT drawn and took to lab, Heparin drips restated. No signs of bleeding noted. IV site intact.
--- NOTE | 2021-03-09 05:01 | NUR ---
Perineal care done. Skin barrier applied. Pt c/o off difficulty breathing; oxygen saturation 90% and pt is breathing 21. Will page respiratory for treatment.
--- NOTE | 2021-03-09 05:34 | NUR ---
Resp paged for breathing treatment.
[2021-03-09 06:00] VITALS: BP 91/56
[2021-03-09 06:10] LABS: BASOPHILS # (AUTO) 0.1 X10'3 (0-0.2); BASOPHILS % (AUTO) 1.2 % (0-1); EOSINOPHILS # (AUTO) 0.5 X10'3 (0-0.9); EOSINOPHILS % (AUTO) 6.7 % (0-6); HEMATOCRIT 31.7 % (35.0-45.0); HEMOGLOBIN 10.7 g/dl (12.0-16.0); MEAN CORPUSCULAR HEMOGLOBIN 30.8 PG (27.0-31.0); MEAN CORPUSCULAR HGB CONC 33.8 g/dL (33.0-36.5); MEAN PLATELET VOLUME 8.4 FL (7.4-10.4); MONOCYTES # (AUTO) 0.7 X10'3 (0-0.9); MONOCYTES % (AUTO) 9.3 % (2-12); NEUTROPHILS % (AUTO) 54.8 % (42-75); PLATELET COUNT 398 X10'3 (140-440); RED BLOOD COUNT 3.48 X10'6 (4.20-5.60); RED CELL DISTRIBUTION WIDTH 15.1 % (11.5-14.5); WHITE BLOOD COUNT 7.3 X10'3 (4.5-11.0)
[2021-03-09 06:20] LABS: ALBUMIN 2.5 G/DL (3.4-5.0); ANION GAP 7 (8-16); BLOOD UREA NITROGEN 12 MG/DL (7-18); BUN/CREATININE RATIO 23.1 (6.6-38.0); CALCIUM 8.8 MG/DL (8.5-10.1); CHLORIDE 103 MMOL/L (99-107); CREATININE 0.52 MG/DL (0.40-0.90); GLUCOSE 164 MG/DL (70-104); MAGNESIUM 1.5 MG/DL (1.5-2.4); POTASSIUM 3.6 MMOL/L (3.5-5.1); SODIUM 139 MMOL/L (135-145); TOTAL CARBON DIOXIDE 29.4 MMOL/L (24-32); eGFR > 90 ML/MIN
[2021-03-09] MEDS: K and/or MAG REPLACEMENT MC SCH (08:31)
[2021-03-09] MEDS: aspirin 81mg, enteric-coated 1 TAB TABLET.DR PO SCH (08:54)
[2021-03-09] MEDS: sertraline 50mg tablet PO SCH (08:54)
[2021-03-09] MEDS: gabapentin 300mg capsule PO SCH (08:54)
[2021-03-09] MEDS: buPROPion SR 150mg tablet PO SCH (08:54)
[2021-03-09] MEDS: busPIRone 5mg tablet PO SCH (08:54)
[2021-03-09] MEDS: lurasidone 20mg tablet PO SCH (08:54)
[2021-03-09] MEDS: cholecalciferol (vitamin D3) 1,000 unit (25mcg) tablet PO SCH (08:54)
[2021-03-09] MEDS: insulin Lispro (HumaLOG) vial - multi-dose SQ SCH ×2 (09:44→14:16)
[2021-03-09 10:04] LABS: PARTIAL THROMBOPLASTIN TIME 61 SECONDS (22-32)
[2021-03-09 11:00] VITALS: BP 113/72
[2021-03-09] MEDS ORDERED: APIX5TAB3 PO (11:57)
[2021-03-09] MEDS ORDERED: apixaban 5mg tablet PO SCH (20:00)
--- NOTE | 2021-03-10 11:23 | NUR ---
Received call from Kofi re: eliquis prescription. There is a discrepancy with the prescription, 10mg po bid for 30 days should be 120 pills. D/C ppwk shows #60 tabs. Needs clarification and then contact kofi back at [phone] to advise.
--- NOTE | 2021-03-10 12:16 | NUR ---
Called [facility] back - advised Dr Lee wants the order to read: eliquis 10mg po bid for 7 days and then 5 mg po bid for the remainder of the days - total of 1 month.
== END 2021-03-09 16:49 | disposition home health service (06) | DRG 137 ==
LOC: ER 13:43 → ED HOLD 20:12 → UNDOADMIN 20:12 → ED HOLD 23:35 → UNDOADMIN 23:53 → PCU 3S 03-07 15:49
PROVIDERS: ADMIT Internal Medicine; ATTEND Family Medicine
PROC: B32T1ZZ Computerized Tomography (CT Scan) of Left Pulmonary Artery using Low Osmolar Contrast (ICD-10-PCS; principal; 2021-03-06)
PROC: B3201ZZ Computerized Tomography (CT Scan) of Thoracic Aorta using Low Osmolar Contrast (ICD-10-PCS; 2021-03-06)
PROC: B32S1ZZ Computerized Tomography (CT Scan) of Right Pulmonary Artery using Low Osmolar Contrast (ICD-10-PCS; 2021-03-06)
DX: U07.1 COVID-19 (principal); I26.99 Other pulmonary embolism without acute cor pulmonale; J12.82 Pneumonia due to coronavirus disease 2019; J96.20 Acute and chronic respiratory failure, unspecified whether with hypoxia or hypercapnia; E11.9 Type 2 diabetes mellitus without complications; F41.8 Other specified anxiety disorders; D64.9 Anemia, unspecified; G47.00 Insomnia, unspecified; K21.9 Gastro-esophageal reflux disease without esophagitis; M19.90 Unspecified osteoarthritis, unspecified site; M54.9 Dorsalgia, unspecified; G89.29 Other chronic pain; I10 Essential (primary) hypertension; J45.909 Unspecified asthma, uncomplicated; M81.0 Age-related osteoporosis without current pathological fracture; Z79.84 Long term (current) use of oral hypoglycemic drugs; Z80.3 Family history of malignant neoplasm of breast; Z86.718 Personal history of other venous thrombosis and embolism; Z87.440 Personal history of urinary (tract) infections; Z83.3 Family history of diabetes mellitus; Z79.899 Other long term (current) drug therapy; Z79.82 Long term (current) use of aspirin
CPT/HCPCS: 36415; 71045; 71275; 80048; 80053; 82948; 83735; 83880; 84484; 85025; 85379; 85730; 87081; 93005; 93306; 94760; 96374; 96375; 97116; 97161; 97530; 99285; G0378; J1644; J1815; J2930; Q0161; Q9967

== ENCOUNTER 2021-08-03 22:23 | Inpatient (IN) | payer MEDICAID ==
[~2021-08-03] VITALS: Ht 165.1 cm; Wt 109.0 kg
[~2021-08-03 22:23] MED LIST changes: -ALBU6.7H9 IH; +ALBU8.5H17 INH; +APIX5TAB3 PO; -IPRA3AMP9 NEB
[2021-08-03] MEDS ORDERED: LIDOcaine 2% 10ml TOPICAL JELLY (Urojet) TP ONE (22:45)
[2021-08-03] MEDS ORDERED: normal saline 1000ML IV soln IVB ONE (22:45)
[2021-08-03 23:24] LABS: BASOPHILS % (AUTO) 0.3 % (0-1); EOSINOPHILS # (AUTO) 0.1 X10'3 (0-0.9); EOSINOPHILS % (AUTO) 0.8 % (0-6); HEMATOCRIT 36.5 % (35.0-45.0); HEMOGLOBIN 12.2 g/dl (12.0-16.0); LYMPHOCYTES # (AUTO) 1.1 X10'3 (1.1-4.8); LYMPHOCYTES % (AUTO) 10.8 % (21-51); MEAN CORPUSCULAR HEMOGLOBIN 29.3 PG (27.0-31.0); MEAN CORPUSCULAR HGB CONC 33.5 g/dL (33.0-36.5); MEAN CORPUSCULAR VOLUME 87.5 FL (78-98); MEAN PLATELET VOLUME 8.8 FL (7.4-10.4); MONOCYTES % (AUTO) 10.2 % (2-12); NEUTROPHILS # (AUTO) 7.7 X10'3 (1.8-7.7); NEUTROPHILS % (AUTO) 77.9 % (42-75); PLATELET COUNT 244 X10'3 (140-440); RED BLOOD COUNT 4.17 X10'6 (4.20-5.60); WHITE BLOOD COUNT 9.9 X10'3 (4.5-11.0)
[2021-08-03 23:27] LABS: CLARITY,URINE CLEAR (Clear); COLOR,URINE YELLOW (Yellow); GLUCOSE, URINE NEGATIVE (Neg); KETONES,URINE NEGATIVE (Neg); LEUKOCYTE ESTERASE ,URINE NEGATIVE (Neg); NITRITES, URINE POSITIVE (Neg); OCCULT BLOOD,URINE NEGATIVE (Neg); PROTEIN,URINE NEGATIVE (Neg); UROBILINOGEN,URINE 0.2 E.U/dL (0.2-1.0)
--- NOTE | 2021-08-03 23:28 | NUR ---
Order to place Callaway catheter given. Callaway catheter placed using sterile technique without issue.
[2021-08-03 23:30] LABS: UA COLLECTION TYPE FOLEY CATH
[2021-08-03] MEDS ORDERED: CefTRIAXone 2gm/NS 100ml IVPB 100 ML IV ONE (23:35)
[2021-08-03 23:38] LABS: ALANINE AMINOTRANSFERASE 36 U/L (12-78); ALBUMIN 3.3 G/DL (3.4-5.0); ALBUMIN/GLOBULIN RATIO 0.9 (1.1-1.5); ALKALINE PHOSPHATASE 91 IU/L (46-116); ANION GAP 10 (8-16); ASPARTATE AMINO TRANSFERASE 20 U/L (10-37); BILIRUBIN,TOTAL 0.3 MG/DL (0.1-1.0); BLOOD UREA NITROGEN 19 MG/DL (7-18); BUN/CREATININE RATIO 32.2 (6.6-38.0); CALCIUM 8.2 MG/DL (8.5-10.1); CHLORIDE 106 MMOL/L (99-107); CREATININE 0.59 MG/DL (0.40-0.90); GLUCOSE 138 MG/DL (70-104); POTASSIUM 4.2 MMOL/L (3.5-5.1); SODIUM 143 MMOL/L (135-145); TOTAL CARBON DIOXIDE 27.1 MMOL/L (24-32); TOTAL PROTEIN 6.9 G/DL (6.4-8.2); eGFR > 90 ML/MIN
[2021-08-03 23:40] LABS: ETHANOL < 0.010 GM/DL (0.0-0.010)
[2021-08-03] MEDS ORDERED: dexamethasone sod phosphate 10mg/ml inj IV STA (23:41)
[2021-08-03 23:42] LABS: BACTERIA,URINE 3+ /HPF (Neg); RBC,URINE 0-2 /HPF (0-2); SQUAMOUS EPITHELIAL CELL,UR FEW /LPF (FEW)
--- NOTE | 2021-08-03 23:42 | NUR ---
This board writer went into patient's room to provide patient care. While in room, patient began coughing repeatedly and turning blue. Patient appeared unable to expel mucus in airway. This board writer raised patient's head of the bed up and suctioned patient to good effect. Patient's oxygen saturations dipped down to 57% during this time. After suctioning and repositioning patient oxygen saturation came up to 99%. Doctor Daniel notified. Order given for IV Solumedrol and ABX.
[2021-08-03 23:43] LABS: AMORPHOUS URATES 2+; MUCUS STRANDS NONE SEEN /LPF (Neg)
[2021-08-03 23:44] LABS: URINE AMPHETAMINE SCREEN NEGATIVE (Neg); URINE BARBITUATE SCREEN NEGATIVE (Neg); URINE BENZODIAZEPINES SCREEN NEGATIVE (Neg); URINE CANNABINOID SCREEN NEGATIVE (Neg); URINE COCAINE SCREEN NEGATIVE (Neg); URINE METHADONE SCREEN NEGATIVE (Neg); URINE OPIATE SCREEN NEGATIVE (Neg); URINE PHENCYCLIDINE SCREEN NEGATIVE (Neg)
[2021-08-03] MEDS ORDERED: FLUT50DI3 PO (23:53)
[2021-08-03] MEDS ORDERED: CHOL20002 PO (23:53)
[2021-08-03] MEDS ORDERED: TRAZ150T78 PO (23:53)
[2021-08-03] MEDS ORDERED: OMEP20CA16 PO (23:53)
[2021-08-03] MEDS ORDERED: APIX5TAB3 PO (23:53)
[2021-08-03] MEDS ORDERED: ROSU10TA28 PO (23:53)
[2021-08-03] MEDS ORDERED: BUSP10TA4 PO (23:53)
[2021-08-04] MEDS ORDERED: non-formulary drug (Alendronate Sodium 1 TAB) PO SCH (00:15)
[2021-08-04] MEDS ORDERED: APIX5TAB3 PO (00:19)
[2021-08-04] MEDS ORDERED: HYDROcodone/acetaminophen 5mg/325mg tablet PO PRN (00:40)
[2021-08-04] MEDS ORDERED: ondansetron 4mg rapidly disintigrating tab PO PRN (00:40)
[2021-08-04] MEDS ORDERED: acetaminophen 325mg tablet PO PRN (00:40)
[2021-08-04] MEDS ORDERED: diphenhydrAMINE 50 mg/ml inj IV PRN (00:40)
[2021-08-04] MEDS ORDERED: naloxone 0.4 mg/ml inj IV PRN (00:40)
[2021-08-04] MEDS ORDERED: ondansetron/PF 4mg/2ml inj IV PRN (00:40)
[2021-08-04] MEDS ORDERED: bisacodyl 10mg suppository rectal RC PRN (00:40)
[2021-08-04] MEDS ORDERED: magnesium hydroxide 30ml (MOM) UD suspension PO PRN (00:40)
[2021-08-04] MEDS ORDERED: morphine 2 MG/ML inj. syringe IV PRN ×2 (00:40)
[2021-08-04] MEDS ORDERED: mag hydrox/Alum hydrox/simeth 30ml oral suspension PO PRN (00:40)
[2021-08-04] MEDS ORDERED: diphenhydrAMINE 25mg capsule PO PRN (00:40)
[2021-08-04] MEDS ORDERED: DEXTROSE 15 GM of carb/4 tabs (each vial/BOTTLE has 4 tablets) PO PRN ×2 (00:45)
[2021-08-04] MEDS ORDERED: dextrose 50%-water 50ml dispensing syringe IV PRN ×2 (00:45)
[2021-08-04] MEDS ORDERED: glucagon, human recombinant 1mg kit SUBCUT PRN (00:45)
[2021-08-04] MEDS ORDERED: MESSAGE TO PHARMACY PO ONE (00:45)
[2021-08-04] MEDS: azithromycin/NS 500mg/250ml 250 ML IV SCH (01:23)
[2021-08-04 01:41] LABS: HEMOGLOBIN A1C 6.7 % (4.5-6.2)
[2021-08-04 01:54] LABS: CREATINE KINASE 39 U/L (26-192); LIPASE < 50 U/L (73-393); MAGNESIUM 1.7 MG/DL (1.5-2.4); PHOSPHORUS 3.6 MG/DL (2.3-4.5)
[2021-08-04] MEDS: normal saline 1000ml 1,000 ML IV SCH (02:44)
[2021-08-04] MEDS: ipratropium/albuterol 3ml nebule NEB SCH ×6 (02:47→23:33)
[2021-08-04 05:52] VITALS: BP 128/54
[2021-08-04 06:00] VITALS: BP 128/54
--- NOTE | 2021-08-04 06:04 | NUR ---
The patient, JANNIE ZARATE, 66 y/o, F admitted by AUGUSTO RIZO MD, was given written information regarding hospital policies, unit procedures and contact persons. Received report from Eleazar AGARWAL before coming to the floor at 0500. Patient alert and in stable condition, Skin check performed and IV fluids infusing at this time. Will continue to monitor and pass on in report to oncoming nurse.
--- NOTE | 2021-08-04 06:28 | NUR ---
Problems reprioritized. Patient report given, questions answered & plan of care reviewed with Ning AGARWAL.
--- NOTE | 2021-08-04 06:44 | NUR ---
Patient in room PCU 3019. I have received report from Vijay AGARWAL and had the opportunity to ask questions and assume patient care.
[2021-08-04] MEDS: budesonide 0.5mg/2ml UD nebule IH SCH ×2 (09:00→19:00)
[2021-08-04] MEDS: buPROPion SR 150mg tablet PO SCH ×2 (09:21→20:58)
[2021-08-04] MEDS: docusate sod 100mg capsule PO SCH ×2 (09:21→20:58)
[2021-08-04] MEDS: pantoprazole 40mg Tablet.DR PO SCH (09:21)
[2021-08-04] MEDS: busPIRone 5mg tablet PO SCH ×2 (09:21→13:56)
[2021-08-04] MEDS: gabapentin 300mg capsule PO SCH (09:22)
[2021-08-04] MEDS: sertraline 50mg tablet PO SCH (09:23)
[2021-08-04] MEDS: atorvastatin 20mg tablet PO SCH (09:23)
[2021-08-04] MEDS: aspirin 81mg, enteric-coated 1 TAB TABLET.DR PO SCH (09:23)
--- NOTE | 2021-08-04 09:47 | NUR ---
OLGA Mittal re: abnormal reading on EKG. Dr. Mittal will be up to floor to read ekg and compare to previous ekg. No new orders.
--- NOTE | 2021-08-04 09:47 | NUR ---
PAGER ID: [phone] MESSAGE: Veronica [phone] re: Alvin Chinchilla in [id number]. EKG just completed on pt. Reads "acute WI". Pt did take nitro earlier and said chest pain is gone.
[2021-08-04] MEDS: insulin Lispro (HumaLOG) vial - multi-dose SQ SCH ×2 (10:35→15:05)
[2021-08-04 11:11] VITALS: BP 103/48
[2021-08-04] MEDS ORDERED: iohexol 350MG/ML 100ml bottle IV ONE (13:02)
[2021-08-04] MEDS: lurasidone 20mg tablet PO SCH (13:56)
[2021-08-04 15:00] VITALS: BP 102/46
[2021-08-04] MEDS ORDERED: albuterol 2.5 MG/3 ML nebule NEB PRN (15:35)
--- NOTE | 2021-08-04 18:31 | NUR ---
Patient in room PCU 3019. I have received report from Veronica AGARWAL and had the opportunity to ask questions and assume patient care.
--- NOTE | 2021-08-04 19:18 | NUR ---
NO NUTRITIONAL COVERAGE GIVEN. NO DINNER TRAY FOUND IN ROOM AND PATIENT STATED SHE ONLY ATE "LITTLE BIT", PT. IS CONGOLESE SPEAKING SO UNABLE TO DETERMINE JUST HOW MUCH SHE ATE, BLD GLUCOSE WAS 124 AND NO COVERAGE FOR LEVEL 2. WILL ADMINISTER COVERAGE AT HS IF NEEDED.
[2021-08-04 19:24] VITALS: BP 107/53
[2021-08-04] MEDS: amitriptyline 25mg tablet PO SCH (20:58)
[2021-08-04] MEDS: apixaban 5mg tablet PO SCH (20:59)
[2021-08-04] MEDS: chlorproMAZINE 25mg tablet PO SCH (20:59)
[2021-08-04] MEDS: traZODone 150mg tablet PO SCH (20:59)
[2021-08-04] MEDS ORDERED: temazepam 15mg capsule PO PRN (21:00)
[2021-08-04] MEDS: cefTRIAXone 1g/NS 100ml IVPB 100 ML IV SCH (21:00)
[2021-08-04 22:00] VITALS: BP 118/52
[2021-08-05 02:00] VITALS: BP 120/57
[2021-08-05] MEDS: ipratropium/albuterol 3ml nebule NEB SCH ×6 (03:25→23:36)
[2021-08-05 06:00] VITALS: BP 116/55
[2021-08-05 06:34] LABS: ALANINE AMINOTRANSFERASE 25 U/L (12-78); ALBUMIN/GLOBULIN RATIO 0.9 (1.1-1.5); ALKALINE PHOSPHATASE 84 IU/L (46-116); ANION GAP 7 (8-16); ASPARTATE AMINO TRANSFERASE 15 U/L (10-37); BILIRUBIN,TOTAL 0.2 MG/DL (0.1-1.0); BLOOD UREA NITROGEN 9 MG/DL (7-18); BUN/CREATININE RATIO 15.5 (6.6-38.0); CALCIUM 8.6 MG/DL (8.5-10.1); CHLORIDE 105 MMOL/L (99-107); CHOL/HDL RATIO 2.5 (0.00-4.99); CHOLESTEROL 123 MG/DL (0-200); CREATININE 0.58 MG/DL (0.40-0.90); GLUCOSE 150 MG/DL (70-104); HDL CHOLESTEROL 50 MG/DL (35-60); POTASSIUM 3.6 MMOL/L (3.5-5.1); SODIUM 141 MMOL/L (135-145); TOTAL CARBON DIOXIDE 28.6 MMOL/L (24-32); TOTAL PROTEIN 6.5 G/DL (6.4-8.2); TRIGLYCERIDES 74 MG/DL (20-135); eGFR > 90 ML/MIN
[2021-08-05 06:38] LABS: BASOPHILS % (AUTO) 0.2 % (0-1); EOSINOPHILS # (AUTO) 0.1 X10'3 (0-0.9); EOSINOPHILS % (AUTO) 0.9 % (0-6); HEMATOCRIT 33.5 % (35.0-45.0); HEMOGLOBIN 11.5 g/dl (12.0-16.0); LYMPHOCYTES # (AUTO) 2.2 X10'3 (1.1-4.8); MEAN CORPUSCULAR HEMOGLOBIN 30.2 PG (27.0-31.0); MEAN CORPUSCULAR HGB CONC 34.3 g/dL (33.0-36.5); MEAN PLATELET VOLUME 8.8 FL (7.4-10.4); MONOCYTES # (AUTO) 0.9 X10'3 (0-0.9); MONOCYTES % (AUTO) 11.2 % (2-12); NEUTROPHILS # (AUTO) 4.7 X10'3 (1.8-7.7); NEUTROPHILS % (AUTO) 59.7 % (42-75); PLATELET COUNT 233 X10'3 (140-440); RED BLOOD COUNT 3.81 X10'6 (4.20-5.60); RED CELL DISTRIBUTION WIDTH 15.8 % (11.5-14.5); WHITE BLOOD COUNT 7.9 X10'3 (4.5-11.0)
[2021-08-05] MEDS: normal saline 1000ml 1,000 ML IV SCH (06:40)
--- NOTE | 2021-08-05 06:41 | NUR ---
Problems reprioritized. Patient report given, questions answered & plan of care reviewed with MALIHA AGARWAL.
[2021-08-05 06:50] LABS: LDL CHOLESTEROL 64 MG/DL (50-100)
[2021-08-05] MEDS: budesonide 0.5mg/2ml UD nebule IH SCH ×2 (07:29→19:19)
[2021-08-05] MEDS: azithromycin/NS 500mg/250ml 250 ML IV SCH (07:58)
[2021-08-05] MEDS: lurasidone 20mg tablet PO SCH (08:00)
[2021-08-05] MEDS: sertraline 50mg tablet PO SCH (08:08)
[2021-08-05] MEDS: aspirin 81mg, enteric-coated 1 TAB TABLET.DR PO SCH (08:08)
[2021-08-05] MEDS: busPIRone 5mg tablet PO SCH ×2 (08:08→15:21)
[2021-08-05] MEDS: docusate sod 100mg capsule PO SCH ×2 (08:08→20:00)
[2021-08-05] MEDS: gabapentin 300mg capsule PO SCH (08:09)
[2021-08-05] MEDS: atorvastatin 20mg tablet PO SCH (08:09)
[2021-08-05] MEDS: pantoprazole 40mg Tablet.DR PO SCH (08:09)
[2021-08-05] MEDS: buPROPion SR 150mg tablet PO SCH ×2 (08:09→21:16)
[2021-08-05 11:00] VITALS: BP 98/50
[2021-08-05] MEDS: apixaban 5mg tablet PO SCH ×2 (11:02→21:16)
--- NOTE | 2021-08-05 11:38 | NUR ---
PT HAD BLOOD AND CLOTS IN LOPEZ CATH, MD SCHAFER AWARE OKAY TO GIVE ELIQUIS, ASPIRIN HELD
[2021-08-05 15:00] VITALS: BP 102/50
[2021-08-05 18:00] VITALS: BP 117/79
--- NOTE | 2021-08-05 18:42 | NUR ---
Problems reprioritized. Patient report given, questions answered & plan of care reviewed with MALIHA AGARWAL.
[2021-08-05] MEDS: chlorproMAZINE 25mg tablet PO SCH (21:16)
[2021-08-05] MEDS: cefTRIAXone 1g/NS 100ml IVPB 100 ML IV SCH (21:16)
[2021-08-05] MEDS: amitriptyline 25mg tablet PO SCH (21:16)
[2021-08-05] MEDS: traZODone 150mg tablet PO SCH (21:16)
[2021-08-05 22:00] VITALS: BP 119/52
[2021-08-06 02:00] VITALS: BP 128/61
[2021-08-06] MEDS: normal saline 1000ml 1,000 ML IV SCH (02:40)
[2021-08-06] MEDS: ipratropium/albuterol 3ml nebule NEB SCH ×6 (03:06→23:10)
[2021-08-06 06:00] VITALS: BP 120/59
--- NOTE | 2021-08-06 06:26 | NUR ---
Problems reprioritized. Patient report given, questions answered & plan of care reviewed with DAPHNE RN.
--- NOTE | 2021-08-06 06:30 | NUR ---
Patient in room PCU 3019. I have received report from STEFANO Oneill and had the opportunity to ask questions and assume patient care.
[2021-08-06 07:23] LABS: BASOPHILS % (AUTO) 0.5 % (0-1); EOSINOPHILS # (AUTO) 0.2 X10'3 (0-0.9); EOSINOPHILS % (AUTO) 3.7 % (0-6); HEMATOCRIT 34.5 % (35.0-45.0); HEMOGLOBIN 11.7 g/dl (12.0-16.0); LYMPHOCYTES # (AUTO) 1.6 X10'3 (1.1-4.8); LYMPHOCYTES % (AUTO) 28.2 % (21-51); MEAN CORPUSCULAR HEMOGLOBIN 29.9 PG (27.0-31.0); MEAN PLATELET VOLUME 8.6 FL (7.4-10.4); MONOCYTES # (AUTO) 0.8 X10'3 (0-0.9); MONOCYTES % (AUTO) 14.6 % (2-12); PLATELET COUNT 232 X10'3 (140-440); RED BLOOD COUNT 3.92 X10'6 (4.20-5.60); RED CELL DISTRIBUTION WIDTH 15.6 % (11.5-14.5); WHITE BLOOD COUNT 5.6 X10'3 (4.5-11.0)
[2021-08-06] MEDS: budesonide 0.5mg/2ml UD nebule IH SCH ×2 (07:40→19:29)
[2021-08-06 07:44] LABS: ALANINE AMINOTRANSFERASE 25 U/L (12-78); ALBUMIN/GLOBULIN RATIO 0.9 (1.1-1.5); ALKALINE PHOSPHATASE 83 IU/L (46-116); ANION GAP 6 (8-16); ASPARTATE AMINO TRANSFERASE 16 U/L (10-37); BILIRUBIN,TOTAL 0.3 MG/DL (0.1-1.0); BLOOD UREA NITROGEN 10 MG/DL (7-18); BUN/CREATININE RATIO 19.2 (6.6-38.0); CALCIUM 8.1 MG/DL (8.5-10.1); CHLORIDE 104 MMOL/L (99-107); CREATININE 0.52 MG/DL (0.40-0.90); GLUCOSE 135 MG/DL (70-104); POTASSIUM 3.6 MMOL/L (3.5-5.1); SODIUM 140 MMOL/L (135-145); TOTAL CARBON DIOXIDE 29.7 MMOL/L (24-32); TOTAL PROTEIN 6.5 G/DL (6.4-8.2); eGFR > 90 ML/MIN
[2021-08-06] MEDS: azithromycin/NS 500mg/250ml 250 ML IV SCH (10:11)
[2021-08-06] MEDS: insulin Lispro (HumaLOG) vial - multi-dose SQ SCH ×2 (10:14→14:21)
[2021-08-06] MEDS: pantoprazole 40mg Tablet.DR PO SCH ×2 (10:16→20:55)
[2021-08-06] MEDS: busPIRone 5mg tablet PO SCH ×2 (10:16→14:26)
[2021-08-06] MEDS: gabapentin 300mg capsule PO SCH (10:16)
[2021-08-06] MEDS: lurasidone 20mg tablet PO SCH (10:16)
[2021-08-06] MEDS: docusate sod 100mg capsule PO SCH ×2 (10:17→21:18)
[2021-08-06] MEDS: sertraline 50mg tablet PO SCH (10:17)
[2021-08-06] MEDS: apixaban 5mg tablet PO SCH ×2 (10:17→20:56)
[2021-08-06] MEDS: atorvastatin 20mg tablet PO SCH (10:17)
[2021-08-06] MEDS: buPROPion SR 150mg tablet PO SCH ×2 (10:17→20:56)
[2021-08-06 11:00] VITALS: BP 108/63
[2021-08-06 18:00] VITALS: BP 92/53
--- NOTE | 2021-08-06 18:41 | NUR ---
Patient in room PCU 3019. I have received report from DAPHNE RN and had the opportunity to ask questions and assume patient care.
--- NOTE | 2021-08-06 18:43 | NUR ---
Problems reprioritized. Patient report given, questions answered & plan of care reviewed with STEFANO Oneill.
[2021-08-06] MEDS: cefTRIAXone 1g/NS 100ml IVPB 100 ML IV SCH (20:55)
[2021-08-06] MEDS: amitriptyline 25mg tablet PO SCH (20:56)
[2021-08-06] MEDS: traZODone 150mg tablet PO SCH (20:56)
[2021-08-06] MEDS: diatr meglu/diatrizoate 30ml oral sol.-(3 dose) bottle PO SCH (20:56)
[2021-08-06] MEDS: chlorproMAZINE 25mg tablet PO SCH (20:56)
[2021-08-06 22:00] VITALS: BP 109/59
[2021-08-07 02:00] VITALS: BP 146/68
[2021-08-07] MEDS: ipratropium/albuterol 3ml nebule NEB SCH ×4 (02:34→15:14)
[2021-08-07 06:00] VITALS: BP 104/64
--- NOTE | 2021-08-07 06:17 | NUR ---
Problems reprioritized. Patient report given, questions answered & plan of care reviewed with DAPHNE RN.
--- NOTE | 2021-08-07 06:30 | NUR ---
Patient in room PCU 3019. I have received report from STEFANO Oneill and had the opportunity to ask questions and assume patient care.
[2021-08-07 06:32] LABS: BASOPHILS % (AUTO) 0.5 % (0-1); EOSINOPHILS # (AUTO) 0.2 X10'3 (0-0.9); EOSINOPHILS % (AUTO) 4.5 % (0-6); HEMOGLOBIN 11.7 g/dl (12.0-16.0); LYMPHOCYTES # (AUTO) 1.5 X10'3 (1.1-4.8); LYMPHOCYTES % (AUTO) 31.1 % (21-51); MEAN CORPUSCULAR HEMOGLOBIN 29.6 PG (27.0-31.0); MEAN CORPUSCULAR HGB CONC 33.5 g/dL (33.0-36.5); MEAN CORPUSCULAR VOLUME 88.2 FL (78-98); MEAN PLATELET VOLUME 8.5 FL (7.4-10.4); MONOCYTES # (AUTO) 0.6 X10'3 (0-0.9); MONOCYTES % (AUTO) 12.8 % (2-12); NEUTROPHILS # (AUTO) 2.5 X10'3 (1.8-7.7); NEUTROPHILS % (AUTO) 51.1 % (42-75); PLATELET COUNT 255 X10'3 (140-440); RED BLOOD COUNT 3.97 X10'6 (4.20-5.60); RED CELL DISTRIBUTION WIDTH 15.8 % (11.5-14.5)
[2021-08-07 07:04] LABS: ALANINE AMINOTRANSFERASE 24 U/L (12-78); ALBUMIN 2.9 G/DL (3.4-5.0); ALBUMIN/GLOBULIN RATIO 0.8 (1.1-1.5); ALKALINE PHOSPHATASE 85 IU/L (46-116); ANION GAP 5 (8-16); ASPARTATE AMINO TRANSFERASE 17 U/L (10-37); BILIRUBIN,TOTAL 0.2 MG/DL (0.1-1.0); BLOOD UREA NITROGEN 11 MG/DL (7-18); BUN/CREATININE RATIO 19.3 (6.6-38.0); CALCIUM 8.4 MG/DL (8.5-10.1); CHLORIDE 106 MMOL/L (99-107); CREATININE 0.57 MG/DL (0.40-0.90); GLUCOSE 139 MG/DL (70-104); POTASSIUM 3.8 MMOL/L (3.5-5.1); SODIUM 141 MMOL/L (135-145); TOTAL CARBON DIOXIDE 29.8 MMOL/L (24-32); TOTAL PROTEIN 6.4 G/DL (6.4-8.2); eGFR > 90 ML/MIN
[2021-08-07] MEDS: budesonide 0.5mg/2ml UD nebule IH SCH (07:11)
[2021-08-07] MEDS: diatr meglu/diatrizoate 30ml oral sol.-(3 dose) bottle PO SCH ×2 (07:40→12:29)
[2021-08-07] MEDS: busPIRone 5mg tablet PO SCH ×2 (07:41→13:53)
[2021-08-07] MEDS: azithromycin/NS 500mg/250ml 250 ML IV SCH (07:41)
[2021-08-07] MEDS: buPROPion SR 150mg tablet PO SCH ×2 (07:41→20:18)
[2021-08-07] MEDS: atorvastatin 20mg tablet PO SCH (07:42)
[2021-08-07] MEDS: pantoprazole 40mg Tablet.DR PO SCH ×2 (07:42→20:19)
[2021-08-07] MEDS: sertraline 50mg tablet PO SCH (07:42)
[2021-08-07] MEDS: gabapentin 300mg capsule PO SCH (07:42)
[2021-08-07] MEDS: docusate sod 100mg capsule PO SCH ×2 (07:42→20:18)
[2021-08-07] MEDS: apixaban 5mg tablet PO SCH ×2 (07:42→20:19)
[2021-08-07] MEDS: lurasidone 20mg tablet PO SCH (07:42)
[2021-08-07] MEDS ORDERED: iohexol 300mg/ml 100ml inj. ONE (10:32)
[2021-08-07 11:00] VITALS: BP 120/72
[2021-08-07] MEDS: acetaminophen 325mg tablet PO PRN (13:54)
[2021-08-07 15:00] VITALS: BP 113/54
--- NOTE | 2021-08-07 15:30 | NUR ---
translated for dr. díaz, dr will be discharging patient for home, explain the results of the abdominal CT scan ask and answered any questions regarding her care.
[2021-08-07] MEDS ORDERED: CEFD300C3 PO (15:47)
[2021-08-07] MEDS ORDERED: DOCU-151 PO (15:52)
[2021-08-07] MEDS ORDERED: BISA10SU11 RC (15:52)
[2021-08-07 18:00] VITALS: BP 121/80
[2021-08-07] MEDS: normal saline 1000ml 1,000 ML IV SCH ×2 (18:40→20:19)
[2021-08-07] MEDS: cefTRIAXone 1g/NS 100ml IVPB 100 ML IV SCH (20:18)
[2021-08-07] MEDS: traZODone 150mg tablet PO SCH (20:18)
[2021-08-07] MEDS: amitriptyline 25mg tablet PO SCH (20:18)
[2021-08-07] MEDS: chlorproMAZINE 25mg tablet PO SCH (20:19)
[2021-08-07 22:00] VITALS: BP 145/71
[2021-08-08 05:44] VITALS: BP 136/66
[2021-08-08 06:00] VITALS: BP 116/71
[2021-08-08 06:30] LABS: BASOPHILS % (AUTO) 0.5 % (0-1); EOSINOPHILS # (AUTO) 0.3 X10'3 (0-0.9); EOSINOPHILS % (AUTO) 5.2 % (0-6); HEMATOCRIT 36.6 % (35.0-45.0); HEMOGLOBIN 12.5 g/dl (12.0-16.0); LYMPHOCYTES % (AUTO) 36.8 % (21-51); MEAN CORPUSCULAR HGB CONC 34.2 g/dL (33.0-36.5); MEAN CORPUSCULAR VOLUME 87.6 FL (78-98); MEAN PLATELET VOLUME 8.5 FL (7.4-10.4); MONOCYTES # (AUTO) 0.5 X10'3 (0-0.9); MONOCYTES % (AUTO) 9.8 % (2-12); NEUTROPHILS # (AUTO) 2.6 X10'3 (1.8-7.7); NEUTROPHILS % (AUTO) 47.7 % (42-75); PLATELET COUNT 249 X10'3 (140-440); RED BLOOD COUNT 4.17 X10'6 (4.20-5.60); RED CELL DISTRIBUTION WIDTH 15.6 % (11.5-14.5); WHITE BLOOD COUNT 5.4 X10'3 (4.5-11.0)
--- NOTE | 2021-08-08 06:30 | NUR ---
Patient in room PCU 3019. I have received report from STEFANO Bertrand and had the opportunity to ask questions and assume patient care.
[2021-08-08 06:35] LABS: ALANINE AMINOTRANSFERASE 23 U/L (12-78); ALBUMIN/GLOBULIN RATIO 0.8 (1.1-1.5); ALKALINE PHOSPHATASE 88 IU/L (46-116); ANION GAP 5 (8-16); ASPARTATE AMINO TRANSFERASE 18 U/L (10-37); BILIRUBIN,TOTAL 0.3 MG/DL (0.1-1.0); BLOOD UREA NITROGEN 8 MG/DL (7-18); BUN/CREATININE RATIO 16.3 (6.6-38.0); CALCIUM 8.6 MG/DL (8.5-10.1); CHLORIDE 105 MMOL/L (99-107); CREATININE 0.49 MG/DL (0.40-0.90); GLUCOSE 118 MG/DL (70-104); POTASSIUM 3.9 MMOL/L (3.5-5.1); SODIUM 140 MMOL/L (135-145); TOTAL CARBON DIOXIDE 30.4 MMOL/L (24-32); TOTAL PROTEIN 6.6 G/DL (6.4-8.2); eGFR > 90 ML/MIN
[2021-08-08] MEDS: docusate sod 100mg capsule PO SCH (09:26)
[2021-08-08] MEDS: busPIRone 5mg tablet PO SCH ×2 (09:26→14:14)
[2021-08-08] MEDS: buPROPion SR 150mg tablet PO SCH (09:27)
[2021-08-08] MEDS: apixaban 5mg tablet PO SCH (09:28)
[2021-08-08] MEDS: gabapentin 300mg capsule PO SCH (09:28)
[2021-08-08] MEDS: atorvastatin 20mg tablet PO SCH (09:28)
[2021-08-08] MEDS: lurasidone 20mg tablet PO SCH (09:29)
[2021-08-08] MEDS: pantoprazole 40mg Tablet.DR PO SCH (09:29)
[2021-08-08] MEDS: sertraline 50mg tablet PO SCH (09:29)
[2021-08-08] MEDS: acetaminophen 325mg tablet PO PRN (09:31)
[2021-08-08] MEDS: azithromycin/NS 500mg/250ml 250 ML IV SCH (09:44)
[2021-08-08 11:00] VITALS: BP 100/49
--- NOTE | 2021-08-08 11:15 | NUR ---
O2 Sat at rest on room air:_88__% If below 89%: Recovery O2 Sat at rest on _2.5__LPM:_92_% via____nasal cannula (mask/nasal cannula, etc..) No further documentation is necessary. If O2 Sat did not drop below 89% on room air,ambulate patient on room air. O2 Sat while ambulating on room air:___% Recovery O2 Sat while ambulating on ___LPM:___% No further documentation is necessary. If patient does not drop below 89% while ambulating, he/she does not qualify for home O2.
--- NOTE | 2021-08-08 16:15 | NUR ---
Patient is stable for discharge per Dr. Mittal. All discharge instructions reviewed with patient and all questions answered. New prescriptions sent electronically. Patient medications retrieved from pharmacy. PIV discontinued. Belongings collected and sent with patient. Wheeled to lobby and sent home with son via personal transportation.
--- NOTE | 2021-08-08 16:15 | NUR ---
Orientation documentation: I have reviewed and agree with all interventions, assessments performed and documented by STACEY Anna.
== END 2021-08-08 15:17 | disposition home health service (06) | DRG 720 ==
LOC: ER 22:23 → ED HOLD 08-04 00:42 → PCU 3S 08-04 05:35
PROVIDERS: ADMIT Family Medicine; ATTEND Family Medicine
PROC: B3251ZZ Computerized Tomography (CT Scan) of Bilateral Common Carotid Arteries using Low Osmolar Contrast (ICD-10-PCS; principal; 2021-08-04)
PROC: B32G1ZZ Computerized Tomography (CT Scan) of Bilateral Vertebral Arteries using Low Osmolar Contrast (ICD-10-PCS; 2021-08-04)
PROC: B32R1ZZ Computerized Tomography (CT Scan) of Intracranial Arteries using Low Osmolar Contrast (ICD-10-PCS; 2021-08-04)
PROC: B3281ZZ Computerized Tomography (CT Scan) of Bilateral Internal Carotid Arteries using Low Osmolar Contrast (ICD-10-PCS; 2021-08-04)
PROC: BW211ZZ Computerized Tomography (CT Scan) of Abdomen and Pelvis using Low Osmolar Contrast (ICD-10-PCS; 2021-08-07)
DX: A41.9 Sepsis, unspecified organism (principal); J96.10 Chronic respiratory failure, unspecified whether with hypoxia or hypercapnia; J18.9 Pneumonia, unspecified organism; I11.0 Hypertensive heart disease with heart failure; I50.32 Chronic diastolic (congestive) heart failure; N39.0 Urinary tract infection, site not specified; B96.20 Unspecified Escherichia coli [E. coli] as the cause of diseases classified elsewhere; E11.9 Type 2 diabetes mellitus without complications; E66.01 Morbid (severe) obesity due to excess calories; E86.1 Hypovolemia; F32.A Depression, unspecified; G89.4 Chronic pain syndrome; J45.909 Unspecified asthma, uncomplicated; K57.90 Diverticulosis of intestine, part unspecified, without perforation or abscess without bleeding; K59.00 Constipation, unspecified; F41.9 Anxiety disorder, unspecified; K21.9 Gastro-esophageal reflux disease without esophagitis; M19.90 Unspecified osteoarthritis, unspecified site; M54.9 Dorsalgia, unspecified; I95.9 Hypotension, unspecified; N20.0 Calculus of kidney; Z68.41 Body mass index [BMI] 40.0-44.9, adult; Z79.01 Long term (current) use of anticoagulants; Z79.51 Long term (current) use of inhaled steroids; Z79.84 Long term (current) use of oral hypoglycemic drugs; Z80.0 Family history of malignant neoplasm of digestive organs; Z80.3 Family history of malignant neoplasm of breast; Z83.3 Family history of diabetes mellitus; Z86.711 Personal history of pulmonary embolism; Z86.718 Personal history of other venous thrombosis and embolism; Z79.899 Other long term (current) drug therapy; Z79.82 Long term (current) use of aspirin
CPT/HCPCS: 36415; 70450; 70496; 70498; 70544; 71045; 74177; 80053; 80061; 80305; 80320; 81001; 82140; 82550; 82948; 83036; 83605; 83690; 83735; 83880; 84100; 84145; 84484; 85025; 87040; 87077; 87081; 87088; 87186; 87635; 93005; 93306; 94640; 94760; 97116; 97162; 97530; 99285; C9803; G0378; J0456; J0696; J1100; J1815; J2270; J3490; J7030; Q0161; Q9963; Q9967

== ENCOUNTER 2024-08-07 21:00 | Emergency (ER) | payer MEDICAID ==
[~2024-08-07 21:00] MED LIST changes: -ALBU8.5H17 INH; +BISA10SU11 RC; -BUSP10TA10 PO; +BUSP10TA4 PO; +CEFD300C3 PO; +CHOL20002 PO; -CHOL20004 PO; +DOCU-151 PO; +FLUT50DI3 PO; -GLIM2TAB6 PO; -LURA20TA PO; +LURA20TA8 PO; +OMEP20CA16 PO; +ROSU10TA72 PO; -TRAZ-256 PO; +TRAZ150T78 PO
[2024-08-07 22:03] LABS: BASOPHILS % (AUTO) 0.6 % (0-1); EOSINOPHILS # (AUTO) 0.2 X10'3 (0-0.9); EOSINOPHILS % (AUTO) 1.8 % (0-6); HEMATOCRIT 39.6 % (35.0-45.0); HEMOGLOBIN 13.6 g/dl (12.0-16.0); LYMPHOCYTES # (AUTO) 2.8 X10'3 (1.1-4.8); LYMPHOCYTES % (AUTO) 33.3 % (21-51); MEAN CORPUSCULAR HEMOGLOBIN 30.4 PG (27.0-31.0); MEAN CORPUSCULAR HGB CONC 34.3 g/dL (33.0-36.5); MEAN CORPUSCULAR VOLUME 88.5 FL (78-98); MEAN PLATELET VOLUME 8.9 FL (7.4-10.4); MONOCYTES # (AUTO) 0.8 X10'3 (0-0.9); MONOCYTES % (AUTO) 9.3 % (2-12); NEUTROPHILS # (AUTO) 4.6 X10'3 (1.8-7.7); PLATELET COUNT 267 X10'3 (140-440); RED BLOOD COUNT 4.47 X10'6 (4.20-5.60); RED CELL DISTRIBUTION WIDTH 13.8 % (11.5-14.5); WHITE BLOOD COUNT 8.3 X10'3 (4.5-11.0)
[2024-08-07] MEDS: HYDROcodone/acetaminophen 10/325mg tab PO ONE (22:19)
[2024-08-07 22:20] LABS: ALANINE AMINOTRANSFERASE 24 U/L (12-78); ALBUMIN 3.8 G/DL (3.4-5.0); ALKALINE PHOSPHATASE 116 IU/L (46-116); ANION GAP 6 (8-16); ASPARTATE AMINO TRANSFERASE 21 U/L (10-37); BILIRUBIN,TOTAL 0.4 MG/DL (0.1-1.0); BLOOD UREA NITROGEN 22 MG/DL (7-18); BUN/CREATININE RATIO 32.4 (10.0-20.0); CALCIUM 9.3 MG/DL (8.5-10.1); CHLORIDE 104 MMOL/L (99-107); CREATININE 0.68 MG/DL (0.40-0.90); GLUCOSE 161 MG/DL (70-104); POTASSIUM 4.3 MMOL/L (3.5-5.1); SODIUM 137 MMOL/L (135-145); TOTAL CARBON DIOXIDE 26.9 MMOL/L (24-32); TOTAL PROTEIN 7.5 G/DL (6.4-8.2); eGFR 86 ML/MIN
[2024-08-07 23:08] LABS: BILIRUBIN,URINE NEGATIVE (Neg); CLARITY,URINE SLIGHTLY CLOUDY (Clear); COLOR,URINE YELLOW (Yellow); GLUCOSE, URINE NEGATIVE (Neg); KETONES,URINE TRACE mg/dl (Neg); LEUKOCYTE ESTERASE ,URINE SMALL (Neg); NITRITES, URINE POSITIVE (Neg); OCCULT BLOOD,URINE NEGATIVE (Neg); PROTEIN,URINE NEGATIVE (Neg); UA COLLECTION TYPE NON-SPECIFIED
[2024-08-07 23:22] LABS: BACTERIA,URINE 2+ /HPF (Neg); RBC,URINE NONE SEEN /HPF (0-2); SQUAMOUS EPITHELIAL CELL,UR FEW /LPF (FEW)
[2024-08-07 23:23] LABS: MUCUS STRANDS FEW /LPF (Neg)
[2024-08-07] MEDS ORDERED: LIDO700A32 TD (23:46)
[2024-08-07] MEDS ORDERED: CYCL-1 PO (23:46)
[2024-08-07] MEDS ORDERED: CEPH-585 PO (23:46)
[2024-08-08] MEDS: CefTRIAXone 1000mg IM Kit (w/lidocaine diluent) IM ONE (00:08)
[2024-08-08] MEDS: LIDOcaine 5% patch TP SCH (00:10)
[2024-08-08] MEDS: ketorolac trometh 15mg/ml vial 15 MG/ML ML IM ONE (00:10)
[2024-08-08 00:23] VITALS: BP 142/60; PULSE 86; RESP 16; TEMP 98.3; O2SAT 96
== END 2024-08-08 00:18 | disposition home or self-care (01) ==
LOC: ER 21:01
DX: N39.0 Urinary tract infection, site not specified (principal); M54.31 Sciatica, right side; E11.9 Type 2 diabetes mellitus without complications; M19.90 Unspecified osteoarthritis, unspecified site; J45.909 Unspecified asthma, uncomplicated; F41.9 Anxiety disorder, unspecified; K21.9 Gastro-esophageal reflux disease without esophagitis; D64.9 Anemia, unspecified; G89.29 Other chronic pain; M54.9 Dorsalgia, unspecified; Z86.718 Personal history of other venous thrombosis and embolism; Z79.899 Other long term (current) drug therapy; Z79.82 Long term (current) use of aspirin; Z79.52 Long term (current) use of systemic steroids; Z98.890 Other specified postprocedural states
CPT/HCPCS: 36415; 74176; 80053; 81001; 85025; 87077; 87088; 87186; 96372; 99285; J0696; J1885